=== PATIENT | male | born 1930 | race Caucasian/White ===

== ENCOUNTER 2016-09-19 07:25 | Outpatient (CLI) | payer MEDICARE, BC | END 2016-09-19 07:26 | disposition home or self-care (01) | DX: I12.9 Hypertensive chronic kidney disease with stage 1 through stage 4 chronic kidney disease, or unspecified chronic kidney disease (principal); N18.9 Chronic kidney disease, unspecified; D63.1 Anemia in chronic kidney disease; R73.9 Hyperglycemia, unspecified; I48.91 Unspecified atrial fibrillation; E53.8 Deficiency of other specified B group vitamins ==

== ENCOUNTER 2016-11-01 12:59 | Outpatient (CLI) | payer MEDICARE, BC ==
[2016-11-01 18:29] LABS: BILIRUBIN,TOTAL 0.7 mg/dL (0.2-1.0)
[2016-11-01 18:30] LABS: BILIRUBIN,DIRECT < 0.1 mg/dL (0.1-0.5)
== END 2016-11-01 13:00 | disposition home or self-care (01) ==
LOC: LAB.F 12:59
PROVIDERS: ATTEND Internal Medicine Cardiovascular Disease
DX: I48.0 Paroxysmal atrial fibrillation (principal); Z79.899 Other long term (current) drug therapy
CPT/HCPCS: 36415; 80076; 84443

== ENCOUNTER 2016-11-06 08:33 | Outpatient (CLI) | payer MEDICARE, BC | END 2016-11-06 08:34 | disposition home or self-care (01) | LOC: RT 08:33 | PROVIDERS: ATTEND Internal Medicine Cardiovascular Disease | DX: I48.0 Paroxysmal atrial fibrillation (principal); Z79.899 Other long term (current) drug therapy | CPT/HCPCS: 93005 ==

== ENCOUNTER 2017-04-16 07:38 | Outpatient (CLI) | payer MEDICARE, BC ==
[2017-04-16 18:46] LABS: BASOPHILS % (AUTO) 0.9 %; EOSINOPHILS # (AUTO) 0.2 10^3/uL (0.0-0.7); EOSINOPHILS % (AUTO) 3.3 %; HCT - HEMATOCRIT 42.5 % (42.0-52.0); HGB - HEMOGLOBIN 13.9 g/dL (14.0-18.0); LYMPHOCYTES # (AUTO) 1.4 10^3/uL (1.5-3.5); LYMPHOCYTES % (AUTO) 27.9 %; MEAN CORPUSCULAR HEMOGLOBIN 33.9 pg (27.0-31.0); MEAN CORPUSCULAR HGB CONC 32.8 g/dL (32.0-36.0); MEAN CORPUSCULAR VOLUME 103.4 fL (80.0-94.0); MEAN PLATELET VOLUME 9.6 fL (7.4-11.4); MONOCYTES # (AUTO) 0.4 10^3/uL (0.0-1.0); MONOCYTES % (AUTO) 8.6 %; NEUTROPHILS # (AUTO) 3.1 10^3/uL (1.5-6.6); NEUTROPHILS % (AUTO) 59.3 %; NUCLEATED RED BLOOD CELLS AUTO 0.1 /100WBC; RED CELL DISTRIBUTION WIDTH 13.9 % (12.0-15.0); UNCORRECTED WHITE BLOOD COUNT 5.2 x10^3/uL; WHITE BLOOD COUNT 5.2 x10^3/uL (4.8-10.8)
[2017-04-16 18:47] LABS: ALBUMIN/GLOBULIN RATIO 1.4 (1.0-2.2); BILIRUBIN,TOTAL 0.8 mg/dL (0.2-1.0); CALCIUM 9.2 mg/dL (8.5-10.3); CREATININE 1.6 mg/dL (0.6-1.2); POTASSIUM 4.5 mmol/L (3.5-5.0); TOTAL PROTEIN 6.4 g/dL (6.7-8.2)
[2017-04-16 18:54] LABS: HEMOGLOBIN A1C 0.59 g/dL
== END 2017-04-16 07:39 | disposition home or self-care (01) ==
LOC: LAB.F 07:38
PROVIDERS: ATTEND Family Medicine
DX: I12.9 Hypertensive chronic kidney disease with stage 1 through stage 4 chronic kidney disease, or unspecified chronic kidney disease (principal); N18.9 Chronic kidney disease, unspecified; D63.1 Anemia in chronic kidney disease; R73.9 Hyperglycemia, unspecified; I48.91 Unspecified atrial fibrillation
CPT/HCPCS: 36415; 80053; 83036; 85025

== ENCOUNTER 2017-05-10 07:44 | Outpatient (CLI) | payer MEDICARE, BC ==
[2017-05-10 10:44] LABS: ALBUMIN/GLOBULIN RATIO 1.3 (1.0-2.2); BILIRUBIN,TOTAL 0.6 mg/dL (0.2-1.0); CALCIUM 9.7 mg/dL (8.5-10.3); CREATININE 1.1 mg/dL (0.6-1.2); POTASSIUM 4.9 mmol/L (3.5-5.0); TOTAL PROTEIN 6.5 g/dL (6.7-8.2)
== END 2017-05-10 07:45 | disposition home or self-care (01) ==
LOC: LAB.F 07:44
PROVIDERS: ATTEND Internal Medicine Cardiovascular Disease
DX: I48.0 Paroxysmal atrial fibrillation (principal)
CPT/HCPCS: 36415; 80053; 84443

== ENCOUNTER 2017-05-17 10:53 | Outpatient (CLI) | payer MEDICARE, BC ==
--- NOTE | 2017-05-17 19:27 | XRAY Report ---
DATE OF SERVICE: 05/17/2017 TWO VIEW CHEST: 05/17/2017 CLINICAL INDICATION: Atrial fibrillation. COMPARISON: 01/25/2013 FINDINGS: Frontal and lateral views of the chest demonstrate a mildly enlarged cardiac silhouette. The lungs are clear. No effusion or pneumothorax is present. IMPRESSION: Mild cardiomegaly, but no evidence of acute cardiopulmonary disease. TD: 05/17/2017 18:30
== END 2017-05-17 10:54 | disposition home or self-care (01) ==
LOC: RT 10:53
PROVIDERS: ATTEND Internal Medicine Cardiovascular Disease
DX: I48.91 Unspecified atrial fibrillation (principal); I51.7 Cardiomegaly
CPT/HCPCS: 71020; 93005

== ENCOUNTER 2017-10-22 07:31 | Outpatient (CLI) | payer MEDICARE, BC ==
[2017-10-22 11:31] LABS: BASOPHILS % (AUTO) 0.4 %; EOSINOPHILS # (AUTO) 0.3 10^3/uL (0.0-0.7); EOSINOPHILS % (AUTO) 4.9 %; HGB - HEMOGLOBIN 12.6 g/dL (14.0-18.0); LYMPHOCYTES # (AUTO) 1.2 10^3/uL (1.5-3.5); LYMPHOCYTES % (AUTO) 22.9 %; MEAN CORPUSCULAR HEMOGLOBIN 34.1 pg (27.0-31.0); MEAN CORPUSCULAR HGB CONC 33.4 g/dL (32.0-36.0); MEAN CORPUSCULAR VOLUME 102.2 fL (80.0-94.0); MEAN PLATELET VOLUME 9.6 fL (7.4-11.4); MONOCYTES # (AUTO) 0.5 10^3/uL (0.0-1.0); MONOCYTES % (AUTO) 10.2 %; NEUTROPHILS # (AUTO) 3.2 10^3/uL (1.5-6.6); NEUTROPHILS % (AUTO) 61.6 %; PLT - PLATELET COUNT 127 10^3/uL (130-450); RED BLOOD COUNT 3.69 10^6/uL (4.70-6.10); RED CELL DISTRIBUTION WIDTH 14.8 % (12.0-15.0); WHITE BLOOD COUNT 5.2 x10^3/uL (4.8-10.8)
[2017-10-22 11:44] LABS: ALBUMIN 3.8 g/dL (3.2-5.5); ALBUMIN/GLOBULIN RATIO 1.5 (1.0-2.2); BILIRUBIN,TOTAL 0.8 mg/dL (0.2-1.0); CALCIUM 9.3 mg/dL (8.5-10.3); CREATININE 1.2 mg/dL (0.6-1.2); TOTAL PROTEIN 6.3 g/dL (6.7-8.2)
[2017-10-22 11:46] LABS: HB2 TOTAL 13.5 g/dL; HEMOGLOBIN A1C 0.54 g/dL; HEMOGLOBIN A1C % 5.8 % (4.6-6.2)
== END 2017-10-22 07:32 | disposition home or self-care (01) ==
LOC: LAB.R 07:31
PROVIDERS: ATTEND Family Medicine
DX: F03.90 Unspecified dementia, unspecified severity, without behavioral disturbance, psychotic disturbance, mood disturbance, and anxiety (principal); I12.9 Hypertensive chronic kidney disease with stage 1 through stage 4 chronic kidney disease, or unspecified chronic kidney disease; N18.9 Chronic kidney disease, unspecified; D63.1 Anemia in chronic kidney disease; R73.9 Hyperglycemia, unspecified; E53.8 Deficiency of other specified B group vitamins
CPT/HCPCS: 36415; 80053; 83036; 85025

== ENCOUNTER 2017-11-16 07:27 | Outpatient (CLI) | payer MEDICARE, BC ==
[2017-11-16 12:57] LABS: ALBUMIN 3.6 g/dL (3.2-5.5); BILIRUBIN,DIRECT 0.2 mg/dL (0.1-0.5); TOTAL PROTEIN 6.3 g/dL (6.7-8.2)
== END 2017-11-16 07:28 | disposition home or self-care (01) ==
LOC: LAB.F 07:27
PROVIDERS: ATTEND Internal Medicine Cardiovascular Disease
DX: Z79.899 Other long term (current) drug therapy (principal)
CPT/HCPCS: 36415; 80076; 84443

== ENCOUNTER 2017-12-07 11:49 | Outpatient (CLI) | payer MEDICARE, BC | END 2017-12-07 11:50 | disposition home or self-care (01) | LOC: RT 11:49 | PROVIDERS: ATTEND Family Medicine | DX: Z79.899 Other long term (current) drug therapy (principal) | CPT/HCPCS: 93005 ==

== ENCOUNTER 2018-04-24 07:19 | Outpatient (CLI) | payer MEDICARE, BC ==
[2018-04-24 13:20] LABS: ALBUMIN 3.8 g/dL (3.2-5.5); ALBUMIN/GLOBULIN RATIO 1.5 (1.0-2.2); ALKALINE PHOSPHATASE 89 IU/L (42-121); ALT ALANINE AMINOTRANSFERASE 16 IU/L (10-60); AST ASPARTATE AMINOTRANSFERASE 22 IU/L (10-42); BILIRUBIN,TOTAL 0.8 mg/dL (0.2-1.0); BILIRUBIN,URINE NEGATIVE (NEGATIVE); BUN - BLOOD UREA NITROGEN 42 mg/dL (6-20); CALCIUM 9.2 mg/dL (8.5-10.3); CARBON DIOXIDE - CO2 24 mmol/L (21-32); CHLORIDE 109 mmol/L (101-111); CHOL/HDL RATIO 2.3 (<5.0); CHOLESTEROL 163 mg/dL; CREATININE 1.1 mg/dL (0.6-1.2); GFR - MDRD 63 (>89); GLUCOSE 90 mg/dL (70-100); GLUCOSE, URINE (UA) NEGATIVE (NEGATIVE); HDL CHOLESTEROL 72 mg/dL; KETONES,URINE (UA) NEGATIVE (NEGATIVE); LEUKOCYTE ESTERASE, URINE NEGATIVE (NEGATIVE); NITRITE,URINE NEGATIVE (NEGATIVE); OCCULT BLOOD,URINE NEGATIVE (NEGATIVE); PROTEIN,URINE NEGATIVE (NEGATIVE); SODIUM 138 mmol/L (135-145); TOTAL PROTEIN 6.3 g/dL (6.7-8.2); UROBILINOGEN,URINE 0.2 (NORMAL) E.U./dL (NORMAL)
[2018-04-24 13:37] LABS: BACTERIA,URINE None Seen /HPF (None Seen); CLARITY,URINE CLEAR (CLEAR); RBC,URINE None Seen /HPF (0-5); SQUAMOUS EPITHELIAL CELL,UR NONE SEEN (<= Few)
[2018-04-24 13:39] LABS: LDL CHOLESTEROL,DIRECT 83 mg/dL; LDLD/HDL RATIO 1.2 (<3.6)
== END 2018-04-24 07:20 | disposition home or self-care (01) ==
LOC: LAB.F 07:19
PROVIDERS: ATTEND Family Medicine
DX: I48.0 Paroxysmal atrial fibrillation (principal); N18.3 Chronic kidney disease, stage 3 (moderate); I12.9 Hypertensive chronic kidney disease with stage 1 through stage 4 chronic kidney disease, or unspecified chronic kidney disease
CPT/HCPCS: 36415; 80053; 80061; 81001; 83721; 87086

== ENCOUNTER 2018-04-30 16:08 | Outpatient (CLI) | payer MEDICARE, BC | END 2018-04-30 16:09 | disposition critical access hospital (66) | LOC: EMS 16:08 | PROVIDERS: ATTEND Surgery | DX: R55 Syncope and collapse (principal); S09.90XA Unspecified injury of head, initial encounter; M25.512 Pain in left shoulder; W18.39XA Other fall on same level, initial encounter; Y92.008 Other place in unspecified non-institutional (private) residence as the place of occurrence of the external cause | CPT/HCPCS: A0425; A0429 ==

== ENCOUNTER 2018-04-30 16:47 | Emergency (ER) | payer MEDICARE, BC ==
--- NOTE | 2018-04-30 18:21 | ED Physician Documentation ---
PD HPI SYNCOPE - Stated complaint Stated Complaint: GLF - Chief complaint Chief Complaint: Trauma Hd/Nk - History obtained from History obtained from: Patient, Family - History of Present Illness Witnessed: Unwitnessed Timing - onset: Today Duration: Seconds Preceding symptoms: Light headed (with dizziness). No: Headache Associated symptoms: No: Headache, Chest pain, Palpitations, Diaphoresis Contributing factors: Just stood up. No: Decreased PO intake Injury occurred: Fell, Head injury (struck left upper parietal head ith small laceration. No LOC nor confusion.). No: Neck injury Similar symptoms before: No diagnosis (just positional vertigo - has seen cardiology and neurology with Dx B[facility]) Review of Systems Constitutional: denies: Fever Ears: denies: Ear pain Nose: denies: Rhinorrhea / runny nose, Congestion Throat: denies: Sore throat, Swollen tonsils Cardiac: denies: Chest pain / pressure, Palpitations Respiratory: reports: Dyspnea, Wheezing. denies: Cough GI: denies: Abdominal Pain, Vomiting Neurologic: denies: Difficulty speaking, Unresponsive, Headache, Head injury PD PAST MEDICAL HISTORY - Past Medical History Cardiovascular: Hypertension, Atrial fibrillation Respiratory: Other Neuro: CVA, TIA Endocrine/Autoimmune: None GI: None : Benign prostate hypertrophy, Frequency HEENT: None Psych: None Musculoskeletal: Osteoarthritis, Chronic back pain, Other Derm: None - Past Surgical History Past Surgical History: Yes General: Appendectomy, Colonoscopy Ortho: Knee replacement HEENT: Tonsil/Adenoidectomy - Present Medications Home Medications: Ambulatory Orders Medication Instructions Recorded Confirmed Aspirin [Aspir 81] 81 mg PO DAILY 12/04/12 12/10/14 Cyanocobalamin (Vitamin B-12) 1,000 mcg PO DAILY 01/25/13 12/14/14 [B-12] Amiodarone HCl 200 mg PO DAILY 12/10/14 12/14/14 Naproxen 375 mg PO BID #20 tablet 04/30/18 - Allergies Allergies/Adverse Reactions: Allergies Allergy/AdvReac Type Severity Reaction Status Date / Time No Known Drug Allergies Allergy Verified 04/30/18 17:37 - Social History Does the pt smoke?: No Smoking Status: Never smoker Does the pt drink ETOH?: Yes Does the pt have substance abuse?: No - Immunizations Immunizations are current?: Yes - POLST Patient has POLST: No PD ED PE NORMAL - Vitals Vital signs reviewed: Yes - General General: Alert and oriented X 3, No acute distress, Well developed/nourished - HEENT HEENT: Pharynx benign. No: Moist mucous membranes - Neck Neck: Supple, no meningeal sign, No adenopathy, Thyroid normal - Cardiac Cardiac: RRR, No murmur - Respiratory Respiratory: Clear bilaterally - Derm Derm: Normal color, Warm and dry - Extremities Extremities: No deformity, No tenderness to palpate, No edema, No calf tenderness / cord Results - Vitals Vitals: Oxygen O2 Source [With Activity] Room air O2 Source [Without Activity] Room air O2 Source Room air - Labs Labs: Laboratory Tests 04/30/18 19:03 POC Whole Bld Glucose 102 H PD MEDICAL DECISION MAKING - ED course Complexity details: reviewed results, considered differential, d/w patient Departure - Departure Disposition: 01 Home, Self Care Clinical Impression: Scalp laceration Qualifiers: Encounter type: initial encounter Qualified Code(s): S01.01XA - Laceration without foreign body of scalp, initial encounter Episode of syncope Qualifiers: Syncope type: vasovagal syncope Qualified Code(s): R55 - Syncope and collapse Shoulder pain, acute Qualifiers: Laterality: left Qualified Code(s): M25.512 - Pain in left shoulder Condition: Stable Record reviewed to determine appropriate education?: Yes Instructions: ED Laceration Scalp Stitch Or Stap Follow-Up: FLORENTINO MA MD [Primary Care Provider] - [facility] [Provider Group] Prescriptions: Naproxen 375 mg PO BID #20 tablet Comments: It is okay to wash and shower. Clean off the wound twice a day with soap and water, or peroxide and water. Apply some antibiotic ointment to it to keep it moist. Also to watch for signs of infection such as purulence, redness or increasing pain. Return to your primary care or the ER at the specified time for suture removal. Staple removal 8-10 days. For the shoulder he can use some naproxen twice daily with food. Add Tylenol if needed for pain. Use the sling to reduce movement of the shoulder to help with comfort. Have gentle range of motion of the shoulders of times a day for a few minutes at a time at least. Follow-up with your primary care or orthopedics regarding the shoulder. Discharge Date/Time: 04/30/18 20:58
[2018-04-30] MEDS: ACETAMINOPHEN 325 MG TABLET PO STA (19:32)
[2018-04-30] MEDS: NAPROXEN 250 MG TABLET PO STA (19:38)
--- NOTE | 2018-04-30 20:34 | XRAY Report ---
Reason: increased shoulder pain; fall today Procedure Date: 04/30/2018 Accession Number: [id number] / [id number] Procedure: XR - Shoulder 3 View LT CPT Code: FULL RESULT: EXAM: LEFT SHOULDER RADIOGRAPHY EXAM DATE: 04/30/2018 08:22 PM. CLINICAL HISTORY: Increased shoulder pain. Fall today. COMPARISON: SHOULDER 2 VIEW LT 12/04/2012 8:16 PM. TECHNIQUE: 4 views. FINDINGS: Bones: Normal. No fracture or bone lesion. Joints: Worsening degenerative changes of the acromioclavicular joint with widening. High riding humeral head compatible with chronic rotator cuff tear with contact with the undersurface of the acromion. No dislocation. Soft tissues: The visualized hemithorax is unremarkable. No soft tissue calcification. IMPRESSION: 1. Worsening degenerative changes of the acromioclavicular joint. 2. Signs of chronic rotator cuff tear. RADIA
[2018-04-30 20:42] VITALS: BP 138/79
--- NOTE | 2018-04-30 20:46 | CT Report ---
Reason: fall and struck head Procedure Date: 04/30/2018 Accession Number: [id number] / [id number] Procedure: CT - Head W/O CPT Code: FULL RESULT: EXAM: CT HEAD EXAM DATE: 04/30/2018 08:13 PM. CLINICAL HISTORY: Fall and struck head. COMPARISON: HEAD W/O 01/25/2013 4:26 PM. TECHNIQUE: Multiaxial CT images were obtained from the foramen magnum to the vertex. Reformats: Sagittal and coronal. IV contrast: None. In accordance with CT protocol optimization, one or more of the following dose reduction techniques were utilized for this exam: automated exposure control, adjustment of mA and/or KV based on patient size, or use of iterative reconstructive technique. FINDINGS: Parenchyma: No acute intraparenchymal hemorrhage. No evidence of mass or midline shift. Cline-white differentiation is distinct. Generalized cerebral volume loss. Nonspecific hypodense changes to the periventricular white matter, which can be seen with chronic small vessel ischemic disease. Extraaxial Spaces: No subdural or epidural collections identified. Ventricles: Ex vacuo dilation of the ventricles. Sinuses and Orbits: Imaged paranasal sinuses, orbits, and mastoids show no significant abnormality. Bones: No evidence of fracture or calvarial defect. Other: None. IMPRESSION: No acute intracranial findings. An acute infarct may not be visible by CT. Follow-up examinations recommended as clinically indicated. RADIA
== END 2018-04-30 20:58 | disposition home or self-care (01) ==
LOC: ED 16:47
DX: I10 Essential (primary) hypertension (principal); Z86.73 Personal history of transient ischemic attack (TIA), and cerebral infarction without residual deficits; Z86.79 Personal history of other diseases of the circulatory system; R55 Syncope and collapse; S01.01XA Laceration without foreign body of scalp, initial encounter; M25.512 Pain in left shoulder
CPT/HCPCS: 12001; 70450; 73030; 99283; 99284; A9270

== ENCOUNTER 2018-05-07 13:14 | Emergency (ER) | payer MEDICARE, BC ==
[2018-05-07 13:31] VITALS: BP 139/67
--- NOTE | 2018-05-07 13:40 | ED Physician Documentation ---
PD HPI WOUND RECHECK - Stated complaint Stated Complaint: STITCH REMOVAL - Chief complaint Chief Complaint: Wound - Histroy obtained from History obtained from: Patient, Family - History of Present Illness Location: Scalp Recently seen: Emergency Dept (had scalp lac secondary to fall. It is healing okay and here sor staple removal.) Review of Systems Constitutional: denies: Fever, Chills Neurologic: denies: Focal weakness, Numbness, Confused, Altered mental status, Headache PD PAST MEDICAL HISTORY - Past Medical History Past Medical History: Yes Cardiovascular: Hypertension, Atrial fibrillation Respiratory: Other Neuro: CVA, TIA Endocrine/Autoimmune: None GI: None : Benign prostate hypertrophy, Frequency HEENT: None Psych: None Musculoskeletal: Osteoarthritis, Chronic back pain, Other Derm: None - Past Surgical History Past Surgical History: Yes General: Appendectomy, Colonoscopy Ortho: Knee replacement HEENT: Tonsil/Adenoidectomy - Present Medications Home Medications: Ambulatory Orders Medication Instructions Recorded Confirmed Aspirin [Aspir 81] 81 mg PO DAILY 12/04/12 12/10/14 Cyanocobalamin (Vitamin B-12) 1,000 mcg PO DAILY 01/25/13 12/14/14 [B-12] Amiodarone HCl 200 mg PO DAILY 12/10/14 12/14/14 Naproxen 375 mg PO BID #20 tablet 04/30/18 - Allergies Allergies/Adverse Reactions: Allergies Allergy/AdvReac Type Severity Reaction Status Date / Time No Known Drug Allergies Allergy Verified 05/07/18 13:38 - Social History Does the pt smoke?: No Smoking Status: Never smoker Does the pt drink ETOH?: Yes Does the pt have substance abuse?: No - Immunizations Immunizations are current?: Yes - POLST Patient has POLST: No PD ED PE NORMAL - Vitals Vital signs reviewed: Yes - General General: Alert and oriented X 3, No acute distress, Well developed/nourished - HEENT HEENT: Other (upper occipital area with healing stapled wound, without signs of infections. ) Results - Vitals Vitals: Oxygen O2 Source [With Activity] Room air O2 Source [Without Activity] Room air O2 Source Room air Departure - Departure Disposition: 01 Home, Self Care Clinical Impression: Encounter for staple removal Condition: Stable Record reviewed to determine appropriate education?: Yes Follow-Up: FLORENTINO MA MD [Primary Care Provider] - Comments: Your wound appears well-healing. Continue wound care with cleansing soap and water and some ointment once or twice daily until looks fully healed. Discharge Date/Time: 05/07/18 13:40
== END 2018-05-07 13:40 | disposition home or self-care (01) ==
LOC: ED 13:14
DX: Z48.02 Encounter for removal of sutures (principal); I10 Essential (primary) hypertension; Z86.79 Personal history of other diseases of the circulatory system; Z86.73 Personal history of transient ischemic attack (TIA), and cerebral infarction without residual deficits
CPT/HCPCS: 99281; 99282

== ENCOUNTER 2018-07-04 11:09 | Outpatient (CLI) | payer MEDICARE, BC ==
[2018-07-04 11:39] LABS: ALBUMIN 3.7 g/dL (3.2-5.5); BILIRUBIN,DIRECT 0.2 mg/dL (0.1-0.5); TOTAL PROTEIN 6.5 g/dL (6.7-8.2)
== END 2018-07-04 11:10 | disposition home or self-care (01) ==
LOC: LAB 11:09
PROVIDERS: ATTEND Internal Medicine Cardiovascular Disease
DX: Z79.899 Other long term (current) drug therapy (principal)
CPT/HCPCS: 36415; 80076; 84443; 93005

== ENCOUNTER 2018-08-01 13:42 | Outpatient (CLI) | payer MEDICARE, BC | END 2018-08-01 13:43 | disposition EMS.NT | LOC: EMS 13:42 | PROVIDERS: ATTEND Surgery | DX: M25.531 Pain in right wrist (principal); W18.30XA Fall on same level, unspecified, initial encounter; Y92.009 Unspecified place in unspecified non-institutional (private) residence as the place of occurrence of the external cause ==

== ENCOUNTER 2018-08-01 14:50 | Emergency (ER) | payer MEDICARE, BC ==
--- NOTE | 2018-08-01 15:32 | XRAY Report ---
Reason: GLF Procedure Date: 08/01/2018 Accession Number: [id number] / [id number] Procedure: XR - Wrist 3 View RT CPT Code: FULL RESULT: EXAM: RIGHT WRIST RADIOGRAPHY EXAM DATE: 08/01/2018 03:07 PM. CLINICAL HISTORY: Ground level fall. COMPARISON: None. TECHNIQUE: 3 views. FINDINGS: Bones: There is an impacted, oblique transverse fracture of the distal radius with dorsal impaction and mild apex anterior angulation. There is dorsal tilt to the radial articular surface and mild anterior and posterior comminution. There is a mildly displaced fracture through the base of the ulnar styloid. Scaphoid appears intact. No additional fractures noted. Joints: No dislocation or subluxation. Soft Tissues: Moderate circumferential soft tissue swelling greatest surrounding the radial fracture. IMPRESSION: 1. Fracture of the distal radius, with collections agent fracture at the base of the ulnar styloid. 2. Moderate circumferential soft tissue swelling greatest adjacent to the radial fracture. 3. Scaphoid bone appears intact. RADIA
[2018-08-01] MEDS ORDERED: SODIUM CHLORIDE 0.9% 500 ML IV ONE (17:10)
--- NOTE | 2018-08-01 17:14 | ED Physician Documentation ---
PD HPI UPPER EXT INJURY - Stated complaint Stated Complaint: R WRIST INJ - Chief complaint Chief Complaint: Trauma Ext - History obtained from History obtained from: Patient, Family - History of Present Illness Location: Right, Wrist Type of injury: Fall Where injury occurred: Home Timing - onset: How many hours ago (2) Timing - duration: Hours (2) Timing - details: Abrupt onset Pain level max: 6 Pain level now: 5 Improved by: Rest, Ice, Immobilization Worsened by: Moving, Palpating Associated symptoms: Swelling. No: Weakness, Numbness, Tingling Contributing factors: No: Anticoagulated Recently seen: Not recently seen - Additonal information Additional information: Patient tripped and fell landed on the right wrist. Patient is right-handed Review of Systems Constitutional: denies: Fever, Chills Throat: denies: Sore throat Skin: denies: Rash Musculoskeletal: denies: Neck pain, Back pain Neurologic: denies: Focal weakness, Headache, Head injury PD PAST MEDICAL HISTORY - Past Medical History Cardiovascular: Hypertension, Atrial fibrillation Respiratory: Other Neuro: CVA, TIA Endocrine/Autoimmune: None GI: None : Benign prostate hypertrophy, Frequency HEENT: None Psych: None Musculoskeletal: Osteoarthritis, Chronic back pain, Other Derm: None - Past Surgical History Past Surgical History: Yes General: Appendectomy, Colonoscopy Ortho: Knee replacement HEENT: Tonsil/Adenoidectomy - Present Medications Home Medications: Ambulatory Orders Medication Instructions Recorded Confirmed Aspirin [Aspir 81] 81 mg PO DAILY 12/04/12 12/10/14 Cyanocobalamin (Vitamin B-12) 1,000 mcg PO DAILY 01/25/13 12/14/14 [B-12] Amiodarone HCl 200 mg PO DAILY 12/10/14 12/14/14 Naproxen 375 mg PO BID #20 tablet 04/30/18 - Allergies Allergies/Adverse Reactions: Allergies Allergy/AdvReac Type Severity Reaction Status Date / Time No Known Drug Allergies Allergy Verified 08/01/18 16:28 - Social History Does the pt smoke?: No Smoking Status: Never smoker Does the pt drink ETOH?: Yes Does the pt have substance abuse?: No - Immunizations Immunizations are current?: Yes - POLST Patient has POLST: No PD ED PE NORMAL - Vitals Vital signs reviewed: Yes - General General: Alert and oriented X 3, No acute distress, Well developed/nourished - HEENT HEENT: Moist mucous membranes - Neck Neck: Supple, no meningeal sign - Cardiac Cardiac: RRR, Strong equal pulses - Respiratory Respiratory: No respiratory distress, Clear bilaterally - Derm Derm: Warm and dry - Extremities Extremities: Other (Tenderness and swelling to the distal right wrist. Neurovascularly intact.) - Neuro Neuro: Alert and oriented X 3 - Psych Psych: Normal mood, Normal affect Results - Vitals Vitals: Oxygen O2 Source [] Room air O2 Source [] Room air O2 Source Room air Oxygen Flow Rate 2 - EKG (time done) 1706 Rate: Rate (enter#) (61) Rhythm: NSR [place]: Anterior hemiblock (LAFB) Intervals: Prolonged [place] QRS: Normal Ischemia: Normal ST segments - Labs Labs: Laboratory Tests 08/01/18 08/01/18 17:17 17:17 WBC 5.6 RBC 3.92 L Hgb 13.0 L Hct 39.8 L MCV 101.5 H MCH 33.2 H MCHC 32.8 RDW 14.0 Plt Count 144 MPV 8.8 Neut # (Auto) 4.2 Lymph # (Auto) 0.9 L [place] # (Auto) 0.4 Eos # (Auto) 0.0 Baso # (Auto) 0.0 Absolute Nucleated RBC 0.00 Nucleated RBC % 0.0 Sodium 136 Potassium 4.8 Chloride 105 Carbon Dioxide 23 Anion Gap 8.0 BUN 47 H Creatinine 1.4 H Estimated GFR (MDRD) 48 L Glucose 120 H Calcium 9.4 - Rads (name of study) Right wrist x-ray Radiology: Prelim report reviewed, EMP read contemporaneously, See rad report (Fracture of the distal radius with director of admissions fracture at the base of the ulnar styloid. Moderate circumferential soft tissue swelling greatest adjacent to the fracture. Scaphoid bone appears intact) Procedures - Splint (location) Right wrist Splint applied by: Physician, Tech Type of splint: Fiberglass, Short arm, Volar cock up Other: Patient tolerated well, No complications, Neurovascular intact, Sling provided PD MEDICAL DECISION MAKING - ED course Complexity details: reviewed results, re-evaluated patient, considered differential, d/w patient, d/w family ED course: 87-year-old male presents to the emergency department after a fall, has a right distal radius fracture. As the splint was being applied, he had an episode of vasovagal syncope. No cardiac arrhythmia on the monitor. Did have transient hypotension that resolved. No acute laboratory abnormalities. We will have him follow-up with orthopedics for further care. They deny any pain medications for home. He has passed out in the past several times according to his . Patient and family counseled regarding signs and symptoms for which I believe and urgent re-evaluation would be necessary. Patient with good understanding of and agreement to plan and is comfortable going home at this time This document was made in part using voice recognition software. While efforts are made to proofread this document, sound alike and grammatical errors may occur. Departure - Departure Disposition: 01 Home, Self Care Clinical Impression: Right wrist fracture Qualifiers: Encounter type: initial encounter Fracture type: closed Qualified Code(s): S62.101A - Fracture of unspecified carpal bone, right wrist, initial encounter for closed fracture Condition: Good Instructions: ED Fx Wrist General Follow-Up: FLORENTINO MA MD [Primary Care Provider] - [facility] [Provider Group] - Within 1 week Comments: Follow-up with orthopedics next week. Return if you worsen. Keep the splint on until released by orthopedics. If this is not healing well, you may need surgery. Discharge Date/Time: 08/01/18 18:30
[2018-08-01 17:28] LABS: BASOPHILS % (AUTO) 0.6 %; EOSINOPHILS % (AUTO) 0.4 %; LYMPHOCYTES # (AUTO) 0.9 10^3/uL (1.5-3.5); LYMPHOCYTES % (AUTO) 16.6 %; MEAN CORPUSCULAR HEMOGLOBIN 33.2 pg (27.0-31.0); MEAN CORPUSCULAR HGB CONC 32.8 g/dL (32.0-36.0); MEAN CORPUSCULAR VOLUME 101.5 fL (80.0-94.0); MEAN PLATELET VOLUME 8.8 fL (7.4-11.4); MONOCYTES # (AUTO) 0.4 10^3/uL (0.0-1.0); MONOCYTES % (AUTO) 6.4 %; NEUTROPHILS # (AUTO) 4.2 10^3/uL (1.5-6.6); PLT - PLATELET COUNT 144 10^3/uL (130-450); RED BLOOD COUNT 3.92 10^6/uL (4.70-6.10); WHITE BLOOD COUNT 5.6 x10^3/uL (4.8-10.8)
[2018-08-01 17:30] LABS: CALCIUM 9.4 mg/dL (8.5-10.3); CREATININE 1.4 mg/dL (0.6-1.2)
[2018-08-01] MEDS ORDERED: ACETAMINOPHEN 325 MG TABLET PO STA (17:34)
[2018-08-01 19:36] VITALS: BP 140/88
== END 2018-08-01 18:30 | disposition home or self-care (01) ==
LOC: ED 14:50
DX: S62.101A Fracture of unspecified carpal bone, right wrist, initial encounter for closed fracture (principal); W01.0XXA Fall on same level from slipping, tripping and stumbling without subsequent striking against object, initial encounter; Y92.009 Unspecified place in unspecified non-institutional (private) residence as the place of occurrence of the external cause; I10 Essential (primary) hypertension; I44.4 Left anterior fascicular block; I44.0 Atrioventricular block, first degree; Z79.82 Long term (current) use of aspirin
CPT/HCPCS: 29125; 36415; 73110; 80048; 85025; 93005; 96360; 99282; 99284; A9270

== ENCOUNTER 2018-08-14 08:35 | Day surgery (SDC) | payer MEDICARE, BC ==
[2018-08-14] MEDS ORDERED: ceFAZolin 2 GM/50 ML 2 GM/50 ML BAG IV ONE (08:47)
[2018-08-14] MEDS ORDERED: BUPIVACAINE 0.25% PF 10 ML VIAL ONE (09:08)
[2018-08-14] MEDS ORDERED: LACTATED RINGERS 1,000 ML IV ONE ×2 (09:16→10:19)
--- NOTE | 2018-08-14 09:19 | ANESTHESIA ---
Pre-Anesthesia VS, & Labs - Diagnosis Right distal radius fracture, ulnar styloid fracture - Procedure right distal radius ORIF, possible brachioradialis tenotomy Vital Signs: Temp Pulse Resp BP Pulse Ox 36.9 C 69 20 174/90 H 97 08/14/18 08:49 08/14/18 08:49 08/14/18 08:49 08/14/18 08:49 08/14/18 08:49 Height 5 ft 9 in Weight (kg) 85.6 kg Body Mass Index 27.5 - NPO >8 hours - Lab Results Lab results reviewed: Yes Home Medications and Allergies Aspirin [Aspir 81] 81 mg PO DAILY 12/04/12 Cyanocobalamin (Vitamin B-12) [B-12] 1,000 mcg PO DAILY 01/25/13 Amiodarone HCl 200 mg PO DAILY 12/10/14 Amiodarone daily Allergies/Adverse Reactions: Allergies Allergy/AdvReac Type Severity Reaction Status Date / Time No Known Drug Allergies Allergy Verified 08/14/18 09:20 Anes History & Medical History - Anesthetic History Anesthesia Complications: reports: No previous complications - Medical History Cardiovascular: reports: Atrial fibrillation (History of afib, currently SR) Pulmonary: reports: Other (snores) Gastrointestinal: reports: None Urinary: reports: Benign prostate hypertrophy, Frequency Neuro: reports: TIA, Fainting, Other (early dementia) Musculoskeletal: reports: Osteoarthritis, Chronic back pain, Other Endocrine/Autoimmune: reports: None Blood Disorders: reports: None Skin: reports: None Smoking Status: Former smoker (Quit 40 years ago) Psychosocial: reports: No issues indicated - Surgical History General: Appendectomy, Colonoscopy Eyes Ears Nose Throat (EENT): Tonsil/Adenoidectomy Orthopedic: Knee replacement Results - EKG Results EKG Comparison: Reviewed EKG - Echo Results Echo Results: Other (no report available. reports patient had ECHO at [facility] and was normal.) Exam General: Alert, Oriented x3, Cooperative, No acute distress Dental: Dentures full Upper, Poor dentition (lower) Respiratory: Lungs clear, Normal breath sounds, No respiratory distress, No accessory muscle use Cardiovascular: Regular rate, Normal S1, Normal S2, Other (slight systolic murmur) Mental/Cognitive Status: Alert/Oriented X3, Normal for patient Plan Anesthesia Type: General Consent for Procedure(s) Verified and Reviewed: Yes Code Status: Attempt Resuscitation ASA classification: 2-Mild systemic disease Is this case an emergency?: No
[2018-08-14] MEDS ORDERED: BUPIVACAINE 0.25% PF 30 ML VIAL SUBQ ONE ×2 (10:19→11:30)
[2018-08-14] MEDS ORDERED: ONDANSETRON 4 MG/2 ML VIAL IVP ONE (11:52)
[2018-08-14] MEDS ORDERED: fentaNYL 250 MCG/5 ML VIAL IVP ONE (11:52)
[2018-08-14] MEDS ORDERED: PROPOFOL 200 MG/20 ML VIAL IVP ONE (11:52)
[2018-08-14] MEDS ORDERED: ACETAMINOPHEN 1,000 MG/100 ML 100 ML IV ONE (11:52)
[2018-08-14] MEDS ORDERED: ePHEDrine 50 MG/ML VIAL IVP ONE (11:52)
[2018-08-14] MEDS ORDERED: DEXAMETHASONE 4 MG/ML VIAL IVP ONE (11:52)
[2018-08-14] MEDS ORDERED: LIDOCAINE-MPF 2% 5 ML VIAL IM ONE (11:52)
[2018-08-14] MEDS ORDERED: oxyCODONE 5 MG TABLET PO PRN (12:03)
[2018-08-14] MEDS ORDERED: ONDANSETRON 4 MG/2 ML VIAL IVP PRN (12:03)
--- NOTE | 2018-08-14 12:03 | IMMEDIATE POSTOPERATIVE NOTE ---
Immediate Postoperative Note - Procedure Note Procedure Date: 08/14/18 Pre-Op Diagnosis: RIGHT DISTAL RADIUS FRACTURE, ULNAR STYLOID FRACTURE Procedure: RIGHT DISTAL RADIUS ORIF, BR TENOTOMY Post-Op Diagnosis: SAME Primary Surgeon: CHRIS Anesthesia Type: General LMA, Local Complications: No complications Estimated Blood Loss (in cc): 25 Plan of Care: PT TOLERATED PROCEDURE WELL. INSTRUMENT AND SPONGE COUNTS CORRECT. PT TRANSFERRED TO IN STABLE CONDITION. STD DISTAL RAD ORIF PROTOCOL
[2018-08-14 13:45] VITALS: BP 140/73
--- NOTE | 2018-08-15 13:37 | OPERATIVE REPORT ---
DATE OF SERVICE: 08/14/2018 Physician: Farhan Doss MD SURGEON: Farhan Doss MD ANESTHESIA PROVIDER: ___ Vicky Wharton CRNA ANESTHESIA TYPE: General anesthesia with 30 mL of 0.25% plain Marcaine local. ESTIMATED BLOOD LOSS: Less than 25 mL. FLUIDS: 600 mL of lactated Ringer's. TOURNIQUET TIME: 93 minutes at 250 mmHg. COMPRESSION DEVICE: Bilateral calf SCD boots. ORTHOPEDIC IMPLANTS: DVR Crosslock 5-hole plate with associated locking and nonlocking screws PREOPERATIVE DIAGNOSES 1. Right distal radius fracture. 2. Ulnar styloid fracture. POSTOPERATIVE DIAGNOSES 1. Right distal radius fracture. 2. Ulnar styloid fracture. PROCEDURES 1. Right distal radius open reduction internal fixation. 2. Right distal radius brachioradialis tenotomy. 3. Right wrist 4 views mini C-arm fluoroscopic image interpretation. HISTORY OF PRESENT ILLNESS AND INDICATIONS: Patient is an 87-year-old active gentleman who sustained a displaced right distal radius fracture. He was indicated for operative treatment. Patient had appropriate preanesthetic risk stratification and optimization and was indicated for aforementioned procedure. Informed consent was given after risks, benefits, and alternatives reviewed with the patient and the patient's in the preoperative care unit and in the clinic. PROCEDURE: On 08/14/2018, patient is identified in the preoperative care unit. He identifies his right wrist as the operative site; this is signed by the operating surgeon. Patient receives preoperative weight-based IV antibiotics. He is brought to the operating room. General anesthesia is administered. He is placed supine on the operating table with head, neck, and extremities placed in anatomically comfortable and safe position to avoid peripheral nerve stretch or compression. Patient's right upper extremity has a tourniquet placed high on the right arm, taking care to avoid any encumbrance of the axilla. Patient's right wrist and right upper extremity are then pre-scrubbed with Hibiclens solution and then prepped and draped in the usual sterile fashion using chlorhexidine-based prep. At this time, surgical pause identifies the right wrist as the operative site. At this point, Esmarch bandage is used to exsanguinate the limb, and then tourniquet is inflated, and then an incision is made over the flexor carpi radialis tendon, and as it approaches the wrist crease, it is angled to avoid crossing the wrist crease at a right angle. Skin incision is made, spreading dissection is carried out, hemostasis is achieved using electrocautery. FCR tendon sheath is entered, taking care to avoid injury to the tendon. This sheath incision extended proximally and distally. The tendon is brought radially, the posterior aspect of the sheath incised and then spreading dissection is carried out down to the pronator quadratus, which is elevated off of the distal radius but noted to be quite injured and damaged, as such difficult to take off in 1 flap. At this point, the fracture is identified, debrided using small curettes, and copiously irrigated, and then reduction attempts brought the radius with improved length, radial inclination, and volar tilt. Given the difficulty in maintaining this, the plate is initially used to facilitate reduction after putting some distal locking screws in. However, it was found that the plate was still somewhat radial, and as such, this needed to be adjusted. After a second reduction attempt and placement of the distal locking screws, improved reduction restores near-anatomic height, inclination, and volar tilt with appropriate plate position. At this point, distal locking screws are filled. Proximal nonlocking and locking screws are placed just beyond the second cortex to avoid overpenetration and potential dorsal injury. The distal screws are noted to be intraosseous and not involving the joint, whether it be the radiocarpal joint or the DRUJ. It should be noted that prior to placing the locking screws distally, a nonlocking screw is placed to bring the plate to the bone maximally. At this point, fluoroscopic images confirm appropriate fracture reduction and hardware position. The wound is copiously irrigated. The pronator quadratus is tacked over the plate, and then repeat copious irrigation and hemostasis is performed. Then the skin is closed in layered fashion using 0 Vicryl, 2-0 Vicryl, and then interrupted nylon suture. Skin is washed, dried, local anesthetic is infused, Xeroform dressing is applied, dry sterile dressing is applied. Patient is placed in a clamshell plaster splint. Patient tolerated the procedure well. Instrument and sponge counts are correct. Patient is transferred to the recovery room in stable condition. He will follow standard postoperative right distal radius open reduction internal fixation protocol. It should be noted that prior to reduction, the brachioradialis is identified. First dorsal extensor compartment is identified and protected, and the brachioradialis is elevated off of the distal radial styloid. At this point, patient's is contacted in the waiting room; case is discussed with her, fluoroscopic images reviewed, her questions are answered. Postoperative instructions highlighted, postoperative medications highlighted, as they had been discussed preoperatively. She verbalizes understanding and satisfaction with the plan as outlined and will follow up in 10-14 days, or sooner should problems or questions arise. ADDITIONAL PROCEDURE: Four views right wrist mini C-arm fluoroscopic image interpretation. RADIOGRAPHIC INDICATIONS: Evaluation of distal radius fracture reduction and hardware placement. RADIOGRAPHIC FINDINGS: Findings demonstrate near-anatomic reduction of a distal radius transverse fracture and ulnar styloid fracture. Approximately radial neutral height, appropriate radial inclination and volar inclination with metallic plate and screws appear to be extraarticular. There are additional radiolucencies consistent with pins or drills adjacent to the plate. RADIOGRAPHIC IMPRESSION: Distal radius fracture and hardware as above. TD: 08/15/2018 13:11 HENRIK
== END 2018-08-14 08:36 | disposition home or self-care (01) ==
LOC: SDS 08:35
PROVIDERS: ATTEND Orthopaedic Surgery Sports Medicine
PROC: 0PSH04Z Reposition Right Radius with Internal Fixation Device, Open Approach (ICD-10-PCS; principal; 2018-08-14 10:00)
DX: S52.501A Unspecified fracture of the lower end of right radius, initial encounter for closed fracture (principal); S52.611A Displaced fracture of right ulna styloid process, initial encounter for closed fracture; N40.1 Benign prostatic hyperplasia with lower urinary tract symptoms; R35.0 Frequency of micturition; F03.90 Unspecified dementia, unspecified severity, without behavioral disturbance, psychotic disturbance, mood disturbance, and anxiety; M19.90 Unspecified osteoarthritis, unspecified site; M54.9 Dorsalgia, unspecified; G89.29 Other chronic pain; I48.91 Unspecified atrial fibrillation; D64.9 Anemia, unspecified; H91.90 Unspecified hearing loss, unspecified ear; W01.0XXA Fall on same level from slipping, tripping and stumbling without subsequent striking against object, initial encounter; Z91.81 History of falling; Y93.89 Activity, other specified; Z79.82 Long term (current) use of aspirin; Z86.73 Personal history of transient ischemic attack (TIA), and cerebral infarction without residual deficits; Z87.891 Personal history of nicotine dependence; Z96.659 Presence of unspecified artificial knee joint
CPT/HCPCS: 25607; A9270; C1713; J0131; J0690; J3010; J7120

== ENCOUNTER 2018-10-30 10:47 | Outpatient (CLI) | payer MEDICARE, BC ==
--- NOTE | 2018-10-30 14:39 | MRI Report ---
Reason: LOWER EXTREMITY NUMBNESS,WEAKNESS OF RIGHT LOWER E Procedure Date: 10/30/2018 Accession Number: [id number] / [id number] Procedure: MRI - Lumbar Spine W/O CPT Code: FULL RESULT: EXAM: MRI LUMBAR SPINE WITHOUT CONTRAST EXAM DATE: 10/30/2018 11:55 AM. CLINICAL HISTORY: Lower extremity numbness and weakness especially on the right. Lumbar degenerative disk disease and facet arthropathy. Lumbar scoliosis. COMPARISON: LUMBAR SPINE 03/12/2012 12:44 PM. TECHNIQUE: Multiplanar, multisequence T1-weighted and fluid-sensitive sequences of the lumbar spine from T12 to S1 without contrast. Other: None. FINDINGS: Spinal Canal: The conus terminates at L1. Stable unremarkable appearance of the conus medullaris. Alignment: Abnormal alignment is similar to prior. Lumbar levoscoliosis may have progressed, now 33 degrees, previously 26 degrees using the same method of measurement. Again seen are findings of multilevel degenerative subluxations including mild retrolisthesis of L1 on L2 and L2 on L3 and mild to moderate anterolisthesis of L4 on L5 and L5 on S1. Bone Marrow: Five [id number] lumbar vertebral bodies are assumed. No acute compression fracture. Similar findings of degenerative endplate signal changes, most notable on the right at L3-L4. Disk Levels/Facets: T12-L1: Prominent disk degeneration and facet arthropathy, left greater than right, at least mildly progressive but now moderate to severe likely progressive left foraminal stenosis. Mild to moderate left lateral recess stenosis. Patent central canal and right foramen. L1-L2: Stable prominent chronic disk degeneration and facet arthropathy. Circumferential bulge, marginal spurring and ligamentum flavum thickening are present. Stable appearing stenosis of the central canal, lateral recesses and neural foramina. Central stenosis is mild to moderate. Lateral recess stenosis is moderate and foraminal stenosis is moderate to severe. L2-L3: Stable appearing prominent chronic disk degeneration and facet arthropathy. Circumferential disk bulge. Facet arthropathy with ligamentum flavum thickening. Mild central stenosis. Moderate right lateral recess stenosis. Moderate to marked bilateral degenerative foraminal stenosis. L3-L4: Again seen are findings of asymmetric moderate to severe disk degeneration and facet arthropathy, most profound to the right of midline. Broad-based bulge with marginal spurring is present, more conspicuous to the right of midline. Stenosis appears stable. Left foraminal stenosis is moderate. Central stenosis is mild. Right lateral recess stenosis is moderate to severe right foraminal stenosis is severe with potential for right L3 nerve root compression. L4-L5: Stable appearing advanced disk degeneration and facet arthropathy with subluxation. Prominent circumferential bulge. No significant central stenosis. Stable moderate bilateral lateral recess stenosis. Stable foraminal stenosis also, at least moderate on the left and moderate to severe on the right. L5-S1: Stable advanced degenerative changes. Stable broad-based bulge and more focal midline posterior protrusion. As before, degenerative stenosis is most prominent at the level of the left foramen which is severely stenotic. Musculature: Mild to moderate diffuse fatty atrophy. Other: None. IMPRESSION: 1. More prominent lumbar levoscoliosis, now about 33 degrees, previously 26 degrees. 2. Progressive now moderate to severe degenerative foraminal stenosis on the left at T12-L1. 3. Diffuse advanced degenerative changes with potentially significant multilevel multizone lumbar stenosis otherwise appears grossly stable from prior. Comment: The following findings are so common in adults without low back pain that while we report their presence, they must be interpreted with caution and in the context of the clinical situation. (Reference Shabnamk et al, Spine 2001) Prevalence of findings in patients without low back pain: Disk degeneration (any evidence): 92% Disk desiccation/T2 signal loss: 83% Disk height loss: 56% Disk bulge: 64% Disk protrusion: 32% Annular tear/high intensity zone: 38% RADIA
== END 2018-10-30 10:48 | disposition home or self-care (01) ==
LOC: DI 10:47
PROVIDERS: ATTEND Physical Medicine & Rehabilitation
DX: M51.36 Other intervertebral disc degeneration, lumbar region (principal); M48.061 Spinal stenosis, lumbar region without neurogenic claudication; M47.816 Spondylosis without myelopathy or radiculopathy, lumbar region; M43.16 Spondylolisthesis, lumbar region; M51.35 Other intervertebral disc degeneration, thoracolumbar region; M48.05 Spinal stenosis, thoracolumbar region; M51.37 Other intervertebral disc degeneration, lumbosacral region; M48.07 Spinal stenosis, lumbosacral region; M41.86 Other forms of scoliosis, lumbar region
CPT/HCPCS: 72148

== ENCOUNTER 2019-02-13 11:15 | Outpatient (CLI) | payer MEDICARE, BC ==
[2019-02-13 11:49] LABS: CALCIUM 9.6 mg/dL (8.5-10.3)
[2019-02-13 16:05] LABS: ALBUMIN 3.9 g/dL (3.2-5.5); ALBUMIN/GLOBULIN RATIO 1.3 (1.0-2.2); BILIRUBIN,TOTAL 0.7 mg/dL (0.2-1.0); CREATININE 1.5 mg/dL (0.6-1.2); TOTAL PROTEIN 6.9 g/dL (6.7-8.2)
== END 2019-02-13 11:16 | disposition home or self-care (01) ==
LOC: LAB 11:15
PROVIDERS: ATTEND Internal Medicine Cardiovascular Disease
DX: I48.91 Unspecified atrial fibrillation (principal)
CPT/HCPCS: 36415; 80053; 84443

== ENCOUNTER 2019-11-05 14:49 | Outpatient (CLI) | payer MEDICARE, BC ==
--- NOTE | 2019-11-05 15:53 | XRAY Report ---
PROCEDURE: Knee 4 View LT INDICATIONS: L KNEE PX 3 MONTHS TECHNIQUE: 4 views of the left knee(s) were acquired. COMPARISON: Left knee radiographs dated 09/26/2018. FINDINGS: Bones: No fractures or dislocations. No suspicious bony lesions. On the left, expected postoperative alignment of medial unicompartmental arthroplasty. The hardware a ppears intact. Severe narrowing of the lateral joint space. On the right, expected postoperative alignment of total knee arthroplasty. Scattered vascular calcifications IMPRESSION: Expected postoperative alignment of left medial unicompartmental arthroplasty. 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 This appears progressed since the prior study. Reviewed by: Meng Reveles MD on 11/05/2019 3:51 PM PDT Approved by: Meng Reveles MD on 11/05/2019 3:51 PM PDT Station ID: [id number]
== END 2019-11-05 14:50 | disposition home or self-care (01) ==
LOC: DI.S 14:49
PROVIDERS: ATTEND Nurse Practitioner
DX: M17.12 Unilateral primary osteoarthritis, left knee (principal); Z96.651 Presence of right artificial knee joint

== ENCOUNTER 2019-11-07 10:04 | Outpatient (CLI) | payer MEDICARE, BC | END 2019-11-07 10:05 | disposition home or self-care (01) | LOC: LAB.S 10:04 | PROVIDERS: ATTEND Orthopaedic Surgery | DX: M25.462 Effusion, left knee (principal) | CPT/HCPCS: 36415; 85651; 86140 ==

== ENCOUNTER 2019-11-27 11:12 | Outpatient (CLI) | payer MEDICARE, BC ==
[2019-11-27 11:59] LABS: ALBUMIN 4.2 g/dL (3.2-5.5); ALBUMIN/GLOBULIN RATIO 1.7 (1.0-2.2); BILIRUBIN,TOTAL 0.9 mg/dL (0.2-1.0); CALCIUM 9.8 mg/dL (8.5-10.3); CREATININE 1.2 mg/dL (0.6-1.2); TOTAL PROTEIN 6.7 g/dL (6.7-8.2)
[2019-11-27 12:04] LABS: THYROID STIMULATING HORMONE 1.24 uIU/mL (0.34-5.60)
[2019-11-27 12:07] LABS: FREE T4 (FREE THYROXINE) 1.04 ng/dL (0.58-1.64)
--- NOTE | 2019-11-27 12:26 | XRAY Report ---
PROCEDURE: Chest 2 View X-Ray INDICATIONS: Atrial fibrillation TECHNIQUE: 2 view(s) of the chest. COMPARISON: 05/17/2017. FINDINGS: Surgical changes and devices: None. Lungs and pleura: No pleural effusions or pneumothorax. Lungs are clear. Mediastinum: Tortuous thoracic aorta with atherosclerotic calcifications at the arch. Mediastinal co ntours are otherwise normal. Heart size is within normal limits. Bones and chest wall: No suspicious bony abnormalities. Soft tissues appear unremarkable. IMPRESSION: No acute cardiopulmonary process demonstrated radiographically. No significant change in appearance of the chest when compared with April 2017 exam. Reviewed by: Yaakov Timmons MD on 11/27/2019 12:25 PM PDT Approved by: Yaakov Timmons MD on 11/27/2019 12:25 PM PDT Station ID: [id number]
== END 2019-11-27 11:13 | disposition home or self-care (01) ==
LOC: DI 11:12
PROVIDERS: ATTEND Internal Medicine Cardiovascular Disease
DX: I48.91 Unspecified atrial fibrillation (principal)
CPT/HCPCS: 36415; 71046; 80053; 84439; 84443

== ENCOUNTER 2020-06-09 07:18 | Outpatient (CLI) | payer MEDICARE, BC ==
--- NOTE | 2020-06-09 09:43 | XRAY Report ---
PROCEDURE: Chest 2 View X-Ray INDICATIONS: PAROXYSMAL ATRIAL FIBRILLATION TECHNIQUE: 2 view(s) of the chest. COMPARISON: 2 view chest 11/27/2019 FINDINGS: Surgical changes and devices: None. Lungs and pleura: No pleural effusions or pneumothorax. Lungs are mildly edematous. Mediastinum: Mediastinal contours are normal. Heart size is at the upper limits of normal. Bones and chest wall: No suspicious bony abnormalities. Soft tissues appear unremarkable. IMPRESSION: Slight pulmonary edema pattern, heart size at the upper limits of normal, no pleural eff usion seen. Little if any change from the comparison study in November of last year. Reviewed by: Nas Broderick MD on 06/09/2020 9:42 AM [facility] Approved by: Nas Broderick MD on 06/09/2020 9:42 AM PST Station ID: [id number]
[2020-06-09 16:42] LABS: ALBUMIN 3.7 g/dL (3.2-5.5); ALBUMIN/GLOBULIN RATIO 1.3 (1.0-2.2); BILIRUBIN,TOTAL 1.3 mg/dL (0.2-1.0); CALCIUM 9.6 mg/dL (8.5-10.3); CREATININE 1.2 mg/dL (0.6-1.2); TOTAL PROTEIN 6.5 g/dL (6.7-8.2)
== END 2020-06-09 07:19 | disposition home or self-care (01) ==
LOC: DI.S 07:18
PROVIDERS: ATTEND Internal Medicine Cardiovascular Disease
DX: I48.0 Paroxysmal atrial fibrillation (principal); Z79.899 Other long term (current) drug therapy
CPT/HCPCS: 36415; 80053; 84443

== ENCOUNTER 2020-08-05 08:46 | Outpatient (CLI) | payer MEDICARE, BC | END 2020-08-05 08:47 | disposition home or self-care (01) | LOC: DI 08:46 | PROVIDERS: ATTEND Internal Medicine Cardiovascular Disease | DX: I50.9 Heart failure, unspecified (principal); I48.91 Unspecified atrial fibrillation; I35.1 Nonrheumatic aortic (valve) insufficiency | CPT/HCPCS: 93306 ==

== ENCOUNTER 2020-09-28 15:12 | Outpatient (CLI) | payer MEDICARE, BC ==
--- NOTE | 2020-09-28 18:21 | Ultrasound Report ---
PROCEDURE: Duplex Lwr Ext Arterial Bilat INDICATIONS: PERIPHERAL VASCULAR DISEASE TECHNIQUE: Color and pulse Doppler interrogation was performed of both lower extremity arterial systems, with im age documentation. COMPARISON: MRI lumbar spine 10/30/2018. Lower extremity arterial Doppler 03/08/2016. FINDINGS: Right lower extremity: Common femoral artery: 137 cm/sec, with biphasic flow. Deep femoral artery: 74 cm/sec, with biphasic flow. Proximal superficial femoral artery: 106 cm/sec, with biphasic flow. Mid superficial femoral artery: 76 cm/sec, with biphasic flow. Distal superficial femoral artery: 65 cm/sec, with biphasic flow. Popliteal artery: 75 cm/sec, with biphasic flow. Posterior tibial artery: 90 cm/sec, with biphasic flow. Anterior tibial artery/dorsalis pedis: 49/59 cm/sec, with biphasic flow. Cline-scale imaging description: Calcified plaque is seen. Left lower extremity: Common femoral artery: 105 cm/sec, with biphasic flow. Deep femoral artery: 110 cm/sec, with biphasic flow. Proximal superficial femoral artery: 152 cm/sec, with triphasic flow. Mid superficial femoral artery: 99 cm/sec, with triphasic flow. Distal superficial femoral artery: 89 cm/sec, with triphasic flow. Collaterals noted. Popliteal artery: 85 cm/sec, with triphasic flow. Posterior tibial artery: 73 cm/sec, with biphasic flow. Anterior tibial artery/dorsalis pedis: 75/33 cm/sec, with monophasic/biphasic flow. Cline-scale imaging description: Calcified plaque is seen. IMPRESSION: No hemodynamically significant stenosis is identified. Biphasic waveforms are seen bilaterally. Calci fied plaque left greater than right. Consider CTA with lower extremity runoff for further evaluation Reviewed by: Asher Sarmiento MD on 09/28/2020 6:20 PM PDT Approved by: Asher Sarmiento MD on 09/28/2020 6:20 PM PDT Station ID: [id number]
== END 2020-09-28 15:13 | disposition home or self-care (01) ==
LOC: DI 15:12
PROVIDERS: ATTEND Orthopaedic Surgery
DX: I70.203 Unspecified atherosclerosis of native arteries of extremities, bilateral legs (principal)
CPT/HCPCS: 93925

== ENCOUNTER 2020-10-15 03:23 | Outpatient (CLI) | payer MEDICARE, BC | END 2020-10-15 03:24 | disposition critical access hospital (66) | LOC: EMS 03:23 | DX: R10.33 Periumbilical pain (principal) | CPT/HCPCS: A0425; A0429 ==

== ENCOUNTER 2020-10-15 03:56 | Inpatient (IN) | payer MEDICARE, BC ==
--- NOTE | 2020-10-15 04:13 | ED Physician Documentation ---
PD HPI ABD PAIN - Stated complaint Stated Complaint: Abdominal pain - Chief complaint Chief Complaint: Abd Pain - History obtained from History obtained from: Patient, Family - Additional information Additional information: Patient comes emergency department chief complaint of abdominal pain that started after he went to bed. Patient states he was feeling completely fine all day yesterday, But that sometime during the night, he awoke with a feeling of strong pain in his epigastric region, stretching down to his umbilicus. Patient indicates the pain was in the midline but seemed to spread out. That it actually seems to have gotten quite a bit better now. He states he has had similar pains before but never this strong. The patient is not aware of having an abdominal aortic aneurysm. He has had an appendectomy many years ago but otherwise no abdominal issues or surgeries. No dysuria currently. No bowel changes. No nausea or vomiting. No fevers or chills. No other complaints at this time. No chest pain. Review of Systems Ten Systems: 10 systems reviewed and negative Constitutional: reports: Reviewed and negative Eyes: reports: Reviewed and negative Ears: reports: Reviewed and negative Nose: reports: Reviewed and negative Throat: reports: Reviewed and negative Cardiac: reports: Reviewed and negative Respiratory: reports: Reviewed and negative GI: reports: Abdominal Pain : reports: Reviewed and negative Skin: reports: Reviewed and negative Musculoskeletal: reports: Reviewed and negative Neurologic: reports: Reviewed and negative Psychiatric: reports: Reviewed and negative Endocrine: reports: Reviewed and negative Immunocompromised: reports: Reviewed and negative PD PAST MEDICAL HISTORY - Past Medical History Past Medical History: Yes Cardiovascular: Atrial fibrillation Respiratory: Other Neuro: TIA, Fainting, Other Endocrine/Autoimmune: None GI: None : Benign prostate hypertrophy, Frequency HEENT: None Psych: None Musculoskeletal: Osteoarthritis, Chronic back pain, Other Derm: None - Past Surgical History Past Surgical History: Yes General: Appendectomy, Colonoscopy Ortho: Knee replacement HEENT: Tonsil/Adenoidectomy - Present Medications Home Medications: Ambulatory Orders Medication Instructions Recorded Confirmed Aspirin [Aspir 81] 81 mg PO DAILY 12/04/12 10/15/20 Cyanocobalamin (Vitamin B-12) 1,000 mcg PO DAILY 01/25/13 10/15/20 [B-12] Amiodarone HCl 100 mg PO DAILY 12/10/14 10/15/20 - Allergies Allergies/Adverse Reactions: Allergies Allergy/AdvReac Type Severity Reaction Status Date / Time No Known Drug Allergies Allergy Verified 10/15/20 04:11 - Social History Does the pt smoke?: No Smoking Status: Never smoker Does the pt drink ETOH?: Yes Does the pt have substance abuse?: No - Immunizations Immunizations are current?: Yes - POLST Patient has POLST: No PD ED PE NORMAL - Vitals Vital signs reviewed: Yes - General General: Alert and oriented X 3, No acute distress - HEENT HEENT: Atraumatic, PERRL, EOMI, Moist mucous membranes - Neck Neck: Supple, no meningeal sign - Cardiac Cardiac: RRR, No murmur - Respiratory Respiratory: No respiratory distress, Clear bilaterally - Abdomen Abdomen: Soft, Non distended, Other (Moderate epigastric tenderness, no rebound or guarding) - Back Back: No CVA TTP - Derm Derm: Normal color, Warm and dry, No rash - Extremities Extremities: No deformity - Neuro Neuro: Alert and oriented X 3 - Psych Psych: Normal mood, Normal affect Results - Vitals Vitals: Vital Signs - 24 hr 10/15/20 10/15/20 10/15/20 04:05 06:46 08:23 Temperature 36.4 C L 36.6 C Heart Rate 86 62 55 L Respiratory 18 16 18 Rate Blood Pressure 183/85 H 142/69 H 151/84 H O2 Saturation 96 99 98 10/15/20 10:52 Temperature Heart Rate 62 Respiratory 16 Rate Blood Pressure 136/79 H O2 Saturation 98 Oxygen O2 Source [With Activity] Room air O2 Source [Without Activity] Room air O2 Source Room air - Labs Labs: Laboratory Tests 10/15/20 10/15/20 10/15/20 04:45 04:45 04:45 WBC 6.8 RBC 3.54 L Hgb 12.0 L Hct 38.2 L MCV 107.9 H MCH 33.9 H MCHC 31.4 L RDW 14.6 Plt Count 177 MPV 10.3 Neut # (Auto) 5.8 Lymph # (Auto) 0.6 L [place] # (Auto) 0.3 Eos # (Auto) 0.1 Baso # (Auto) 0.0 Absolute Nucleated RBC 0.00 Nucleated RBC % 0.0 PT 13.7 H INR 1.2 Sodium 140 Potassium 4.7 Chloride 107 Carbon Dioxide 23 Anion Gap 10.0 BUN 56 H Creatinine 1.5 H Estimated GFR (MDRD) 44 L Glucose 123 H Calcium 9.2 Total Bilirubin 1.0 AST 17 ALT 11 Alkaline Phosphatase 100 Total Protein 5.8 L Albumin 3.5 Globulin 2.3 Albumin/Globulin Ratio 1.5 Lipase 71 H Urine Color Urine Clarity Urine pH Ur Specific [place] Urine Protein Urine Glucose (UA) Urine Ketones Urine Occult Blood Urine Nitrite Urine Bilirubin Urine Urobilinogen Ur Leukocyte Esterase Ur Microscopic Review Urine Culture Comments Nasal Adenovirus (PCR) Nasal B. parapertussis DNA (PCR) Nasal Coronavir 229E PCR Nasal Coronavir HKU1 PCR Nasal Coronavir NL63 PCR Nasal Coronavir OC43 PCR Nasal Enterovir/Rhinovir PCR Nasal Influenza B PCR Nasal Influenza A PCR Nasal Parainfluen 1 PCR Nasal Parainfluen 2 PCR Nasal Parainfluen 3 PCR Nasal Parainfluen 4 PCR Nasal RSV (PCR) Nasal B.pertussis DNA PCR Nasal C.pneumoniae (PCR) Malvin Human Metapneumo PCR Nasal M.pneumoniae (PCR) Nasal SARS-CoV-2 (PCR) 10/15/20 10/15/20 06:25 11:35 WBC RBC Hgb Hct MCV MCH MCHC RDW Plt Count MPV Neut # (Auto) Lymph # (Auto) [place] # (Auto) Eos # (Auto) Baso # (Auto) Absolute Nucleated RBC Nucleated RBC % PT INR Sodium Potassium Chloride Carbon Dioxide Anion Gap BUN Creatinine Estimated GFR (MDRD) Glucose Calcium Total Bilirubin AST ALT Alkaline Phosphatase Total Protein Albumin Globulin Albumin/Globulin Ratio Lipase Urine Color YELLOW Urine Clarity CLEAR Urine pH 5.5 Ur Specific [place] 1.020 Urine Protein NEGATIVE Urine Glucose (UA) NEGATIVE Urine Ketones NEGATIVE Urine Occult Blood NEGATIVE Urine Nitrite NEGATIVE Urine Bilirubin NEGATIVE Urine Urobilinogen 0.2 (NORMAL) Ur Leukocyte Esterase NEGATIVE Ur Microscopic Review NOT INDICATED Urine Culture Comments NOT INDICATED Nasal Adenovirus (PCR) NOT DETECTED Nasal B. parapertussis DNA (PCR) NOT DETECTED Nasal Coronavir 229E PCR NOT DETECTED Nasal Coronavir HKU1 PCR NOT DETECTED Nasal Coronavir NL63 PCR NOT DETECTED Nasal Coronavir OC43 PCR NOT DETECTED Nasal Enterovir/Rhinovir PCR NOT DETECTED Nasal Influenza B PCR NOT DETECTED Nasal Influenza A PCR NOT DETECTED Nasal Parainfluen 1 PCR NOT DETECTED Nasal Parainfluen 2 PCR NOT DETECTED Nasal Parainfluen 3 PCR NOT DETECTED Nasal Parainfluen 4 PCR NOT DETECTED Nasal RSV (PCR) NOT DETECTED Nasal B.pertussis DNA PCR NOT DETECTED Nasal C.pneumoniae (PCR) NOT DETECTED Malvin Human Metapneumo PCR NOT DETECTED Nasal M.pneumoniae (PCR) NOT DETECTED Nasal SARS-CoV-2 (PCR) NOT DETECTED - Rads (name of study) CT abd/pelvis Radiology: Final report received, EMP read indepedently, See rad report (perforated viscus with free air.) PD MEDICAL DECISION MAKING - ED course Complexity details: reviewed results, re-evaluated patient, considered differential, d/w patient, d/w family ED course: Patient was feeling quite a bit better upon arrival, but given his age, location of tenderness, and the unusual nature of his symptoms, I did decide to work him up with labs and ultimately, CT scan of the abdomen and pelvis. This showed free air in the abdomen without a clear source, but presumed to be secondary to colonic perforation. I spoke with Dr. Sullivan, who agreed to admit the pt to his service. Zosyn was started. Pt remained stable throughout his stay in the ED. Departure - Departure Disposition: [facility] DC/Xfer Clinical Impression: Perforated abdominal viscus Condition: Serious Discharge Date/Time: 10/15/20 15:45
[2020-10-15] MEDS ORDERED: IOVERSOL 320 100 ML VIAL IVP ONE ×2 (04:18→05:45)
[2020-10-15 04:50] LABS: BASOPHILS % (AUTO) 0.3 %; EOSINOPHILS # (AUTO) 0.1 10^3/uL (0.0-0.7); EOSINOPHILS % (AUTO) 1.8 %; HCT - HEMATOCRIT 38.2 % (42.0-52.0); LYMPHOCYTES # (AUTO) 0.6 10^3/uL (1.5-3.5); LYMPHOCYTES % (AUTO) 8.8 %; MEAN CORPUSCULAR HEMOGLOBIN 33.9 pg (27.0-31.0); MEAN CORPUSCULAR HGB CONC 31.4 g/dL (32.0-36.0); MEAN CORPUSCULAR VOLUME 107.9 fL (80.0-94.0); MEAN PLATELET VOLUME 10.3 fL (7.4-11.4); MONOCYTES # (AUTO) 0.3 10^3/uL (0.0-1.0); MONOCYTES % (AUTO) 4.1 %; NEUTROPHILS # (AUTO) 5.8 10^3/uL (1.5-6.6); NEUTROPHILS % (AUTO) 84.9 %; PLT - PLATELET COUNT 177 10^3/uL (130-450); RED BLOOD COUNT 3.54 10^6/uL (4.70-6.10); RED CELL DISTRIBUTION WIDTH 14.6 % (12.0-15.0); WHITE BLOOD COUNT 6.8 x10^3/uL (4.8-10.8)
[2020-10-15 04:59] LABS: INR 1.2 (0.8-1.2); PT - PROTHROMBIN TIME 13.7 secs (9.9-12.6)
[2020-10-15 05:01] LABS: ALBUMIN 3.5 g/dL (3.2-5.5); ALBUMIN/GLOBULIN RATIO 1.5 (1.0-2.2); CALCIUM 9.2 mg/dL (8.5-10.3); CREATININE 1.5 mg/dL (0.6-1.2); POTASSIUM 4.7 mmol/L (3.5-5.0); TOTAL PROTEIN 5.8 g/dL (6.7-8.2)
[2020-10-15] MEDS ORDERED: SODIUM CHLORIDE 0.9% 1,000 ML IV STA (06:22)
[2020-10-15] MEDS ORDERED: PIPERACILLIN/TAZOBACTAM 3.375 GM in SODIUM CHLORIDE 0.9% MINIBAG 100 ML IV STA (06:23)
[2020-10-15] MEDS ORDERED: HYDROmorphone 1 MG/ML CARPUJECT IVP STA (06:35)
[2020-10-15 06:44] LABS: BILIRUBIN,URINE NEGATIVE (NEGATIVE); GLUCOSE, URINE (UA) NEGATIVE (NEGATIVE); KETONES,URINE (UA) NEGATIVE (NEGATIVE); LEUKOCYTE ESTERASE, URINE NEGATIVE (NEGATIVE); NITRITE,URINE NEGATIVE (NEGATIVE); OCCULT BLOOD,URINE NEGATIVE (NEGATIVE); PH,URINE 5.5 PH (5.0-7.5); PROTEIN,URINE NEGATIVE (NEGATIVE); UROBILINOGEN,URINE 0.2 (NORMAL) E.U./dL (NORMAL)
[2020-10-15 06:49] LABS: CLARITY,URINE CLEAR (CLEAR)
[2020-10-15] MEDS ORDERED: IOPAMIDOL-300 50 ML VIAL ONE (08:45)
--- NOTE | 2020-10-15 09:24 | CT Report ---
PROCEDURE: Abdomen/Pelvis W INDICATIONS: severe abdominal pain, intermittent CONTRAST: IV CONTRAST: Optiray 320 ml: 100 PO CONTRAST: *NO PO CONTRAST TECHNIQUE: After the administration of intravenous contrast, 5 mm thick sections acquired from the diaphragms to the symphysis. 5 mm thick coronal and sagittal reformats were acquired. For radiation dose reducti on, the following was used: automated exposure control, adjustment of mA and/or kV according to heidi ent size. COMPARISON: None. FINDINGS: Mild fibrotic changes at the lung bases bilaterally. Subsegmental basilar atelectasis. Hear t size is mildly enlarged. There is four-vessel coronary atherosclerosis. Normal CT appearance of the liver, spleen, gallbladder, and adrenal glands. There is an approximately 4.3 x 2.5 cm hypodense mass in the pancreas with dilatation of the pancreat ic duct distal to the mass up to 7 mm. There are also atrophic changes of the distal pancreas. No per ipancreatic fat stranding. Both kidneys demonstrate mild atrophic changes with no findings of obstruction or urinary tract calcu rosanna. Multiple urinary bladder diverticula. Prostate gland is within normal limits with central calcif ication. Extensive aortic atherosclerotic disease extending into the major visceral branches. The IVC is paten t. Small sliding-type hiatal hernia. No abnormally dilated or obvious thickened loop of bowel. There is sigmoid diverticulosis without findings of diverticulitis. Moderate volume pneumoperitoneum and small volume ascites without an obvious source. Nonspecific soft tissue density containing punctate calcifications within the right inguinal canal. IMPRESSION: Pneumoperitoneum and small volume ascites. This is likely colonic although there is no definite sourc e lesion identified. Mass in the body of the pancreas with atrophy of the distal pancreas and dilation of the pancreatic d uct distal to the mass. This is suspicious for malignancy and should be further evaluated with MRI. Sigmoid diverticulosis without findings of diverticulitis. 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 Soft tissue density containing punctate calcifications within the right inguinal canal. This may repr esent a nondistended testicle although there are other differential considerations. Cardiomegaly. Reviewed by: Yaakov Timmons MD on 10/15/2020 9:23 AM PDT Approved by: Yaakov Timmons MD on 10/15/2020 9:23 AM PDT Station ID: [id number]
--- NOTE | 2020-10-15 11:02 | CT Report ---
PROCEDURE: ABDOMEN WO INDICATIONS: perforation, oral contrast please CONTRAST: Oral contrast TECHNIQUE: After the administration of oral contrast, 5 mm thick sections acquired from the diaphragms to the il iac crests. 5 mm coronal and sagittal reformats were then performed. For radiation dose reduction, the following was used: automated exposure control, adjustment of mA and/or kV according to patient size. COMPARISON: CT of abdomen and pelvis from the same day at 5:28 AM. FINDINGS: Image quality: Excellent. Lung bases: Bibasilar dependent atelectasis is seen. Heart size is normal. Solid organs: Liver and spleen are normal in size. Gallbladder is within normal limits. Pancreas i s normal in contours. No adrenal nodules. Both kidneys are normal in size, without hydronephrosis o r gross nephrolithiasis. Residual excreted IV contrast from earlier CT study is seen within renal col lecting system. Peritoneum and bowel: Again noted is moderate amount of peritoneal free air unchanged from earlier st udy. No significant amount of free fluid is seen. Markedly distended gastric lumen with oral contrast is noted. There is suggestion of distal gastric wall thickening/proximal duodenal wall thickening an d right upper quadrant. No contrast extravasation. No evidence of small bowel obstruction or abnormal small bowel wall thickening. Visualized portion of colon shows fecal stasis in the colon without col onic wall thickening or pericolonic fat stranding. Nodes and vessels: No retroperitoneal or mesenteric adenopathy by size criteria. Aorta and inferior vena cava are normal in size. Mild to moderate amount of atherosclerotic calcifications in the abdo sedrick aorta is seen. Bones: No suspicious bony lesions. No vertebral body compression fractures. Degenerative disc disea se throughout lower thoracic and lumbar spine is seen. Miscellaneous: No ventral hernias. IMPRESSION: 1. Again seen is significant amount of peritoneal free air. No extravasated oral contrast is seen. No significant abdominal free fluid. 2. Markedly distended gastric lumen with distal gastric wall thickening/proximal duodenal wall thicke alvaro in right upper quadrant. Overall finding is suggestive of perforated duodenal ulcer. No other ar ea of abnormal bowel wall thickening is seen. Mild fecal stasis in the colon suggestive of mild const ipation. Reviewed by: Kayode Butler MD on 10/15/2020 11:01 AM PDT Approved by: Kayode Butler MD on 10/15/2020 11:01 AM PDT Station ID: [id number]
[2020-10-15] MEDS ORDERED: ONDANSETRON 4 MG/2 ML VIAL IVP PRN ×2 (11:48→13:13)
--- NOTE | 2020-10-15 11:48 | SURGERY HX AND PHYSICAL(T) ---
Surgical History & Physical - Chief Complaint/HPI Chief Complaint: Pneumoperitoneum and epigastric pain History of Present Illness: 89-year-old male presenting for diffuse pneumoperitoneum and abdominal pain. Several day history of "heartburn" and epigastric discomfort. Patient has bilateral knee and upper extremity arthritis for which he takes ibuprofen/nonsteroidals several times daily up to 4-5. Patient takes no acid suppressive therapy and has never had upper endoscopy to evaluate his foregut pain. Has atrial fibrillation but only takes aspirin. No other systemic anticoagulation. Patient has had no prior abdominal surgical intervention other than remote appendectomy No significant family history. Notable past surgical history to include appendectomy. Patient denies change in bowel function, denies bleeding per rectum, and also however reports significant "heartburn" and reflux associated symptoms. Patient does not use tobacco. Patient has no alcohol use. No history of heart attack or stroke. Patient takes no systemic anticoagulation. Endoscopic history includes remote colonoscopy however patient does not remember exactly. - PMH/PSH/Social Hx Does the pt have a hx of MRSA?: No Neurological History: TIA, Fainting, Other Eyes, Ears, Nose, Throat: None Cardiovascular: Atrial fibrillation Respiratory: Other Skin: None Endocrine/Autoimmune: None Gastrointestinal: None Urinary: Benign prostate hypertrophy, Frequency Musculoskeletal: Osteoarthritis, Chronic back pain, Other Blood Disorders: None Psychiatric: None General: Appendectomy, Colonoscopy Orthopedic: Knee replacement Eyes Ears Nose Throat (EENT): Tonsil/Adenoidectomy Smoking Status: Never smoker Does the pt drink ETOH?: Yes Frequency: Occasional Does the pt have substance abuse?: No - Home Meds and Allergies Home Medications: Aspirin [Aspir 81] 81 mg PO DAILY 12/04/12 Cyanocobalamin (Vitamin B-12) [B-12] 1,000 mcg PO DAILY 01/25/13 Amiodarone HCl 100 mg PO DAILY 12/10/14 Allergies/Adverse Reactions: Allergies Allergy/AdvReac Type Severity Reaction Status Date / Time No Known Drug Allergies Allergy Verified 10/15/20 04:11 - Review of Systems Gastrointestinal: Abdominal pain - Vital Signs Heart Rate: 62 Blood Pressure: 136/79 Temperature: 36.6 C Respiratory Rate: 16 O2 Saturation: 98 Weight (kg): 78.925 kg Height: 1.75 m - Physical Exam Comments/Other: General Appearance: positive: No acute distress Eyes Bilateral: positive: Normal inspection ENT: positive: ENT inspection nml Neck: positive: Nml inspection Respiratory: positive: Chest non-tender, No respiratory distress, Breath sounds nml. negative: Wheezes, Rales, Rhonchi Cardiovascular: positive: Regular rate & rhythm Extremities: positive: Non-tender, Full ROM, Nml appearance Neurologic/Psychiatric: positive: Oriented x3, CN's nml (2-12) Abdomen specified: 1. Distended, no scars or palpable hernias. 2. Rebound and guarding diffusely. Signs of mild peritonitis. - Patient Review Patient Review: Problems were reviewed with the patient during this visit. Medications were reviewed with the patient during this visit. Allergies were reviewed this patient during this visit. Pertinent Tests Reviewed: All pertitent test for this patient were reviewed. - Assessment & Plan Assessment and Plan: 89-year-old male presenting with peritonitis and pneumoperitoneum. Longstanding arthritic pain with nonsteroidal self-medication chronic up to 4 times daily over the last several months. No proton pump inhibition or acid suppressive therapy. No history of upper or lower endoscopy. Patient with recent onset epigastric discomfort. Imaging concerning for pancreatic mass however repeat imaging with oral contrast shows proximal duodenal thickening with some gastric outlet obstruction likely consistent with peptic ulcer disease. This correlates with the patient's recent history of chronic nonsteroidal intake absent acid suppression therapy. Given the significant pneumoperitoneum and the associated peritonitis we will proceed with diagnostic laparoscopy for washout and drain placement. Bowel rest, IV antibiotics, therapeutic proton pump inhibition, and hospitalist consult given the patient's advanced age. Patient will need preoperative chest x-ray and EKG as well. CT abdomen pelvis impression on admission: 1. Pneumoperitoneum with small amount of ascites. This is likely from colonic perforation. 2. Mass in the body of the pancreas with dilation of the dorsal pancreatic duct. This finding is concerning for neoplastic process and may be further evaluated with MRI. 3. Diverticulosis coli. 4. Multiple urinary bladder diverticula suggestive of chronic urinary bladder outlet obstruction. 5. Soft tissue density within the right inguinal canal may be represent a nondescended testicle but is nonspecific. This may be evaluated further by MRI. 6. Cardiomegaly 7. Spondylosis with grade 1 spondylolisthesis L5-S1. Repeat CT abdomen with oral contrast no IV contrast. 1. Again seen is significant amount of peritoneal free air. No extravasated oral contrast is seen. No significant abdominal free fluid. 2. Markedly distended gastric lumen with distal gastric wall thickening proximal duodenal wall thickening in the right upper quadrant overall findings suggestive perforated duodenal ulcer. No other area of abnormal wall thickening is seen. Mild fecal stasis in the colon suggestive of mild constipation
--- NOTE | 2020-10-15 12:39 | XRAY Report ---
PROCEDURE: Chest 1 View X-Ray INDICATIONS: Pneumoperitoneum, preop TECHNIQUE: One view of the chest was acquired. COMPARISON: June 09, 2020, CT abdomen, 10/15/2020 FINDINGS: Heart size is enlarged, and there is mild vascular congestion, similar to the prior. Atherosclerotic calcification of the abdominal aorta without evidence of aneurysm. No focal infiltrate present. Large amount of free air noted beneath both hemidiaphragms, similar to the concurrent CT. Osseous str uctures unremarkable. IMPRESSION: 1. Pneumoperitoneum, concordant with recent CT. 2. Cardiomegaly with mild vascular congestion, similar to prior Reviewed by: Ayo Lopes MD on 10/15/2020 11:37 AM MÓNICA Approved by: Ayo Lopes MD on 10/15/2020 11:37 AM MÓNICA Station ID: [id number]
[2020-10-15] MEDS ORDERED: IOPAMIDOL-300 50 ML VIAL PO ONE (12:55)
--- NOTE | 2020-10-15 13:11 | ANESTHESIA ---
Pre-Anesthesia VS, & Labs - Diagnosis perforated ulcer - Procedure las assisted exploratory laparotomy Vital Signs: Temp Pulse Resp BP Pulse Ox 36.6 C 62 16 136/79 H 98 10/15/20 12:07 10/15/20 12:07 10/15/20 12:07 10/15/20 12:07 10/15/20 12:07 Height: 5 ft 9 in Weight (kg): 78.925 kg Body Mass Index: 25.7 BMI Classification: Overweight - NPO >8 hours - Lab Results Current Lab Results: Laboratory Tests 10/15/20 04:45: Sodium 140, Potassium 4.7, Chloride 107, Carbon Dioxide 23, Anion Gap 10.0, BUN 56 H, Creatinine 1.5 H, Estimated GFR (MDRD) 44 L, Glucose 123 H, Calcium 9.2, Total Bilirubin 1.0, AST 17, ALT 11, Alkaline Phosphatase 100, Total Protein 5.8 L, Albumin 3.5, Globulin 2.3, Albumin/Globulin Ratio 1.5, Lipase 71 H 10/15/20 04:45: PT 13.7 H, INR 1.2 10/15/20 04:45: WBC 6.8, RBC 3.54 L, Hgb 12.0 L, Hct 38.2 L, MCV 107.9 H, MCH 33 .9 H, MCHC 31.4 L, RDW 14.6, Plt Count 177, MPV 10.3, Neut # (Auto) 5.8, Lymph # (Auto) 0.6 L, [place] # (Auto) 0.3, Eos # (Auto) 0.1, Baso # (Auto) 0.0, Absolute Nucleated RBC 0.00, Nucleated RBC % 0.0 Lab results reviewed: Yes Fish Bones: 10/15/20 04:45 10/15/20 04:45 Home Medications and Allergies Active Medications Enoxaparin Sodium (Enoxaparin 40 Mg/0.4 Ml Syringe) 40 mg SUBQ DAILY PETRA Hydromorphone HCl (Hydromorphone 0.5 Mg/0.5 Ml Syringe) 0.5 mg IVP Q2H PRN PRN Reason: Pain 8 to 10 Potassium Chloride/Dextrose/Sod Cl (D5ns W/20 Meq Kcl) 1,000 mls @ 125 mls/hr IV .Q8H PETRA Acetaminophen (Ofirmev) 100 mls @ 400 mls/hr IV Q6HR PRN PRN Reason: PAIN Pantoprazole Sodium 80 mg/ (Sodium Chloride) 100 mls @ 10 mls/hr IV .Q10H PETRA Insulin Aspart (Insulin Aspart 300 Unit/3 Ml Pen) 1 - 5 unit SUBQ 0800,1200,1700,2100 PETRA; Protocol Iopamidol (Iopamidol-300 50 Ml Vial) 50 ml PO ONCE ONE Stop: 10/15/20 12:56 Last Admin: 10/15/20 12:55 Dose: 50 ml Documented by: Methocarbamol (Methocarbamol 500 Mg Tablet) 500 mg PO Q6HR PETRA Ondansetron HCl (Ondansetron 4 Mg/2 Ml Vial) 4 mg IVP Q6HR PRN PRN Reason: Nausea / Vomiting Pantoprazole Sodium (Pantoprazole 40 Mg Vial) 40 mg IVP QDAC PETRA Sodium Chloride (Sodium Chloride Flush 0.9% 10 Ml Syringe) 10 ml IVP 0100,0900,1700 PETRA Sodium Chloride (Sodium Chloride Flush 0.9% 10 Ml Syringe) 10 ml IVP PRN PRN PRN Reason: NEEDED PER PROVIDER ORDERS Aspirin [Aspir 81] 81 mg PO DAILY 12/04/12 Cyanocobalamin (Vitamin B-12) [B-12] 1,000 mcg PO DAILY 01/25/13 Amiodarone HCl 100 mg PO DAILY 12/10/14 Allergies/Adverse Reactions: Allergies Allergy/AdvReac Type Severity Reaction Status Date / Time No Known Drug Allergies Allergy Verified 10/15/20 04:11 Anes History & Medical History - Anesthetic History Anesthesia Complications: reports: No previous complications Family history of Anesthesia Complications: Denies Family history of Malignant Hyperthermia: Denies - Medical History Cardiovascular: reports: Atrial fibrillation, Other (in SR on Amiodarone) Pulmonary: reports: Other Gastrointestinal: reports: None, Other (perforated ulcer) Urinary: reports: Benign prostate hypertrophy, Frequency Neuro: reports: TIA, Fainting, Other Musculoskeletal: reports: Osteoarthritis, Chronic back pain, Other (uses walker) Endocrine/Autoimmune: reports: None Blood Disorders: reports: None Skin: reports: None Smoking Status: Never smoker - Surgical History General: reports: Appendectomy, Colonoscopy Eyes Ears Nose Throat (EENT): reports: Tonsil/Adenoidectomy Orthopedic: reports: Knee replacement Exam General: Alert, Oriented x3, Cooperative Dental: Poor dentition, Other (poor dentition with multiple missing teeth. pt denies any current loose teeth. pt left bridge at home) Mouth Openin Fingerbreadth Neck Mobility: Normal Respiratory: Lungs clear Cardiovascular: Regular rate Abdomen: Normal bowel sounds Plan Anesthesia Type: General Consent for Procedure(s) Verified and Reviewed: Yes Code Status: Attempt Resuscitation ASA classification: 3-Severe systemic disease Is this case an emergency?: Yes
[2020-10-15] MEDS ORDERED: METOCLOPRAMIDE 10 MG/2 ML VIAL IVP PRN (13:13)
[2020-10-15] MEDS ORDERED: HYDROmorphone 0.5 MG/0.5 ML SYRINGE IVP PRN (13:13)
[2020-10-15] MEDS ORDERED: NALOXONE 0.4 MG/ML VIAL IVP PRN (13:13)
[2020-10-15] MEDS ORDERED: ATROPINE ABBOJECT 1 MG/10 ML SYRINGE IVP PRN (13:13)
[2020-10-15] MEDS ORDERED: fentaNYL 100 MCG/2 ML VIAL IVP PRN (13:13)
[2020-10-15] MEDS ORDERED: MORPHINE 2 MG/ML CARPUJECT IVP PRN (13:13)
[2020-10-15] MEDS ORDERED: ePHEDrine 50 MG/ML VIAL IVP PRN (13:13)
[2020-10-15 13:40] LABS: B. PARAPERTUSSIS- RESP PCR PAN NOT DETECTED; B. PERTUSSIS- RESP PCR PANEL NOT DETECTED; C. PNEUMONIAE- RESP PCR PANEL NOT DETECTED; CORONAVIRUS 229E-RESP PCR NOT DETECTED; CORONAVIRUS HKU1-RESP PCR NOT DETECTED; CORONAVIRUS NL63-RESP PCR NOT DETECTED; CORONAVIRUS OC43-RESP PCR NOT DETECTED; HUMAN METAPNEUMOVIRUS NOT DETECTED; INFLUENZA A- RESP PCR PANEL NOT DETECTED; INFLUENZA B - RESP PCR PANEL NOT DETECTED; M. PNEUMONIAE- RESP PCR PANEL NOT DETECTED; PARAINFLUENZA VIRUS 1 NOT DETECTED; PARAINFLUENZA VIRUS 2 NOT DETECTED; PARAINFLUENZA VIRUS 3 NOT DETECTED; PARAINFLUENZA VIRUS 4 NOT DETECTED; RHINOVIRUS/ENTEROVIRUS NOT DETECTED; RSV- RESP PCR PANEL NOT DETECTED; SARS-CoV-2 -RESP PCR PANEL NOT DETECTED
[2020-10-15] MEDS ORDERED: LACTATED RINGERS 1,000 ML IV SCH (14:00)
[2020-10-15] MEDS: PANTOPRAZOLE 80 MG in SODIUM CHLORIDE 0.9% 100ML 100 ML IV SCH (17:26)
[2020-10-15] MEDS: SODIUM CHLORIDE FLUSH 0.9% 10 ML SYRINGE IVP SCH (17:27)
[2020-10-15] MEDS: D5NS W/20 MEQ KCL 1,000 ML IV SCH (17:40)
[2020-10-15] MEDS: PIPERACILLIN/TAZOBACTAM 3.375 GM in SODIUM CHLORIDE 0.9% MINIBAG 100 ML IV SCH ×2 (17:41→22:36)
[2020-10-15] MEDS: INSULIN ASPART 300 UNIT/3 ML PEN SUBQ SCH ×3 (17:58→22:19)
[2020-10-15] MEDS: methocarbamoL 500 MG TABLET PO SCH ×2 (18:00→18:01)
[2020-10-15] MEDS ORDERED: LIDOCAINE-MPF 2% 5 ML VIAL ONE (18:47)
[2020-10-15] MEDS ORDERED: PROPOFOL 200 MG/20 ML VIAL IVP ONE (18:47)
[2020-10-15] MEDS ORDERED: BUPIVACAINE 0.5%-EPI 1:200000 PF 30 ML VIAL ONE (18:48)
[2020-10-15] MEDS ORDERED: fentaNYL 100 MCG/2 ML VIAL ONE (18:48)
[2020-10-15] MEDS ORDERED: LIDOCAINE MPF 2%-EPI 1:200000 20 ML VIAL ONE (18:48)
[2020-10-15] MEDS ORDERED: BUPIVACAINE 0.5%-EPI 1:200000 PF 30 ML VIAL SUBQ ONE (19:47)
[2020-10-15] MEDS ORDERED: LIDOCAINE 2%-EPI 1:100000 20 ML MDV SUBQ ONE (19:47)
[2020-10-15] MEDS ORDERED: ONDANSETRON 4 MG/2 ML VIAL ONE (19:53)
[2020-10-15] MEDS ORDERED: METHYLENE BLUE 0.5% 50 MG/10 ML AMPULE ONE (20:07)
[2020-10-15] MEDS ORDERED: SUGAMMADEX 200 MG/2 ML VIAL IVP ONE (20:59)
[2020-10-15] MEDS ORDERED: LACTATED RINGERS 900 ML IV ONE (21:18)
[2020-10-15] MEDS ORDERED: ALBUTEROL NEB 2.5 MG/3 ML INH PRN (21:33)
[2020-10-15] MEDS ORDERED: IPRATROPIUM 0.2 MG/ML NEB INH PRN (21:33)
--- NOTE | 2020-10-15 21:39 | ANESTHESIA POST OP EVALUATION ---
Anesthesia Post Eval - Post Anesthesia Eval Vitals: Last Vital Signs Temp 36.8 C 10/15/20 21:30 Pulse 81 10/15/20 21:30 Resp 13 10/15/20 21:30 BP 129/80 10/15/20 21:30 Pulse Ox 100 10/15/20 21:30 CV Function Including HR & BP: Stable Pain Control: Satisfactory Nausea & Vomiting: Negative Mental Status: Baseline Respiratory Status: Airway Patent Hydration Status: Satisfactory Anesthesia Complications: None
--- NOTE | 2020-10-15 21:42 | OPERATIVE REPORT ---
Operative Report - General Admit Date: 10/15/20 Procedure Date: 10/15/20 Planned Procedure: 1. Diagnostic laparoscopy 2. Abdominal washout 3. Drain placement 4. Possible Andrei patch Pre-Op Diagnosis: Peritonitis; pneumoperitoneum; abdominal pain; suspected pancreatic mass Procedure Performed: 1. Diagnostic laparoscopy 2. Abdominal washout, laparoscopic peritoneal lavage 3. Peritoneal sampling, laparoscopic 4. Partial omentectomy, excisional laparoscopic 5. Laparoscopic assisted liver biopsy, Sánchez-Cut 6. Laparoscopic assisted gastric versus pancreatic biopsy, Sánchez-Cut 7. Drain placement laparoscopic assisted 8. Umbilical hernia repair Post Op Diagnosis: Same; Lt hepatic mass; gastric versus pancreatic mass; purulent peritonitis - Procedure Note Primary Surgeon: Nate Secondary Surgeon: Michael Anesthesia Provider: Leah Anesthesia Technique: General ET tube, Local Pathology: 1. Peritoneal fluid for culture 2. Peritoneal fluid for cytology 3. Fibrinous exudate for culture 4. Gastric versus pancreatic mass for pathology 5. Liver biopsy for pathology 6. Omentum for pathology Estimated Blood Loss (mL): 25 Drain/Tube Type: Myron drain Indications: EMR Findings: 1. Purulent peritonitis, diffuse 2. Large gastric versus pancreatic mass 3. Methylene blue instilled in the stomach with no extravasation 4. No active bile extravasation seen 5. Signs of perforated gastric versus duodenal ulcer appreciated with foregut fibrinous exudate 6. Umbilical hernia 7. Left hepatic lobe mass Complications: None - Other Other Information/Narrative: Procedure performed: 1. Diagnostic laparoscopy 2. Abdominal washout, laparoscopic peritoneal lavage 3. Peritoneal sampling, laparoscopic 4. Partial omentectomy, excisional laparoscopic 5. Laparoscopic assisted liver biopsy, Sánchez-Cut 6. Laparoscopic assisted gastric versus pancreatic biopsy, Sánchez-Cut 7. Drain placement laparoscopic assisted 8. Umbilical hernia repair Intraoperative findings: 1. Purulent peritonitis, diffuse 2. Large gastric versus pancreatic mass 3. Methylene blue instilled in the stomach with no extravasation 4. No active bile extravasation seen 5. Signs of perforated gastric versus duodenal ulcer appreciated with foregut fibrinous exudate 6. Umbilical hernia 7. Left hepatic lobe mass Procedure note: The patient was taken to the operating room placed supine on the operating table. The patient was already obtained for informed consent. Patient was offloaded and padded where appropriate. The patient was induced for general endotracheal anesthesia. The patient was placed for Owens catheter. The patient was prepped and draped in the usual sterile fashion. The timeout was called and agreed to by all in the room. The plan was to proceed laparoscopically given the patient's presentation with peritonitis and diffuse intra-abdominal fluid presumptively secondary to peptic ulcer disease likely perforated. Although the subsequent CAT scan with oral contrast showed no extravasation, the patient was indicated for operative intervention secondary to the peritonitis and the need to widely drain, moreover there was concern for a gastric versus a pancreatic mass that could be assessed together with the peritoneal fluid sampling and other diagnostic interventions. Patient was chosen for placement laparoscopic access from the umbilicus. A circumlinear incision was made and deepened through the subcutaneous fat with Bovie electrocautery the umbilicus revealed a hernia which was plan for repair at the conclusion of this case. The stalk was elevated and divided without any complication of injuring the overlying skin. The umbilical defect was enlarged to accomplish and accommodate the Dior trocar thereafter the abdomen was insu fflated to 50 mmHg without any complication. The abdomen was needle immediately notable for purulent peritonitis and that we plan to place additional trochars for further evaluation. Suprapubic trocar left lower quadrant trocar and right lower quadrant trochars were placed to 5 mm under direct laparoscopic visualization. We proceeded to aspirate fluid as follows: 1. Fluid was aspirated for culture and sensitivity aerobic 2. Fluid was aspirated and collected for anaerobic culture 3. The abdomen was irrigated and aspirated for cytology to rule out diffuse intraperitoneal malignancy. We thereafter proceeded to evaluate the left upper quadrant which was obviously the source of the patient's likely peritonitis to include perforated gastric versus duodenal ulcer. There was no active extravasation of the either blood nor bilious contents for the foregut and after a careful dissection with the laparoscopic a suction retail selling floor leader and blunt instruments we still could not find any areas concerning for an active perforated hollow viscus. We thereafter instructed anesthesia to dilute methylene blue and inserted this through the nasogastric tube to act as an indicator for any persistent extravasation of bilious contents during this operative intervention absent any visualization of blue dye and continued to evaluation was without any concerns for an active injury hollow viscus and at this time we felt it was appropriate just to continue with the diagnostic laparoscopy diffuse peritoneal lavage and wide local drain placement. We aggressively irrigated and aspirated the entirety of the abdomen clear with 3 L of sterile warm saline. At this time we noticed a large retroperitoneal mass within the lesser sac and upon dissecting the omentum overlying we proceeded to note that that this area was consistent with the findings on CAT scan and this could either be gastric and/or pancreatic. Given the size of this mass and the absent ability to perform endoscopic evaluation in this patient who presented with perforated hollow viscus which would preclude insufflation endoluminally, we opted to proceed with Sánchez-Cut core biopsies through one of the trocar sites which were placed epigastric as a means to provide multiple passes. This was achieved without any complication without any bleeding and without any bilious drainage this was a large solid firm mass and there was no concern for creating a fistula given its size and its radiographic characteristics. Thereafter we proceeded to perform passes of the left liver lobe lesion that was along the falciform that was also concerning for malignancy. This was without any complication and specimens were sent as well. Pathology is as follows is to the specimen sent: 1. Peritoneal fluid for culture 2. Peritoneal fluid for cytology 3. Fibrinous exudate for culture 4. Gastric versus pancreatic mass for pathology 5. Liver biopsy for pathology 6. Omentum for pathology Please note that the omentum was also resected and a portion of this was sent for pathology as well to rule out metastatic disease. At this time we reevaluated the entirety of the abdomen without any subsequent drainage of blue dye through the stomach which was ultimately aspirated. The abdomen was again irrigated and aspirated clear with no evidence of bilious drainage. At this time we placed 2 drains 1 in the right upper quadrant along first portion of the duodenum the pylorus and into and overlying the retroperitoneal mass which was likely pancreatic versus gastric, fixed enlarged. This was the area that was biopsied superficially with the Sánchez-Cut device. A second 19 Myron drain was placed in the pelvis. Patient was desufflated for the abdomen with all trochars removed after the drains had been placed laparoscopically through 2 of the 4 trocar sites without any complication. Please drains were secured in place with 2-0 nylon. The umbilicus was closed with several [id number]'s of 0 Vicryl in order to close the patient's umbilical hernia. Skin was performed for umbilical plasty in the skin incisions throughout were reapproximated with skin muriel. I was present for the entirety of this operative intervention. The patient was tolerant of the operative intervention without any complication. All counts for sponges needles and instruments were correct at the conclusion of his operative case. Please note that voice recognition software was used to transcribe this note and inadvertent errors might persist in spite of review and editing. I am obliged to you for your attention. I am thankful to you for allowing me to participate with you in this care of this patient.
[2020-10-15] MEDS ORDERED: HALOPERIDOL 5 MG/ML VIAL ONE (22:08)
--- NOTE | 2020-10-15 22:09 | PROVIDER PROGRESS NOTE ---
Progress Note BRIEF OP NOTE Admit Date: 10/15/20 Procedure Date: 10/15/20 Planned Procedure: 1. Diagnostic laparoscopy 2. Abdominal washout 3. Drain placement 4. Possible Andrei patch Pre-Op Diagnosis: Peritonitis; pneumoperitoneum; abdominal pain; suspected pancreatic mass Procedure Performed: 1. Diagnostic laparoscopy 2. Abdominal washout, laparoscopic peritoneal lavage 3. Peritoneal sampling, laparoscopic 4. Partial omentectomy, excisional laparoscopic 5. Laparoscopic assisted liver biopsy, Sánchez-Cut 6. Laparoscopic assisted gastric versus pancreatic biopsy, Sánchez-Cut 7. Drain placement laparoscopic assisted 8. Umbilical hernia repair Post Op Diagnosis: Same; Lt hepatic mass; gastric versus pancreatic mass; purulent peritonitis - Procedure Note Primary Surgeon: Nate Secondary Surgeon: Michael Anesthesia Provider: Leah Anesthesia Technique: General ET tube, Local Pathology: 1. Peritoneal fluid for culture 2. Peritoneal fluid for cytology 3. Fibrinous exudate for culture 4. Gastric versus pancreatic mass for pathology 5. Liver biopsy for pathology 6. Omentum for pathology Estimated Blood Loss (mL): 25 Drain/Tube Type: Myron drain Indications: EMR Findings: 1. Purulent peritonitis, diffuse 2. Large gastric versus pancreatic mass 3. Methylene blue instilled in the stomach with no extravasation 4. No active bile extravasation seen 5. Signs of perforated gastric versus duodenal ulcer appreciated with foregut fibrinous exudate 6. Umbilical hernia 7. Left hepatic lobe mass Complications: None
[2020-10-15] MEDS: HYDROmorphone 0.5 MG/0.5 ML SYRINGE IVP PRN ×2 (22:14→23:59)
[2020-10-15] MEDS: HEPARIN 5,000 UNIT/ML VIAL SUBQ SCH (22:18)
[2020-10-15] MEDS: HALOPERIDOL 5 MG/ML VIAL IVP PRN (22:18)
[2020-10-16] MEDS: methocarbamoL 500 MG TABLET PO SCH ×3 (01:44→12:50)
[2020-10-16] MEDS: D5NS W/20 MEQ KCL 1,000 ML IV SCH ×3 (01:45→12:44)
[2020-10-16] MEDS: HYDROmorphone 0.5 MG/0.5 ML SYRINGE IVP PRN ×6 (01:48→21:06)
[2020-10-16] MEDS: SODIUM CHLORIDE FLUSH 0.9% 10 ML SYRINGE IVP SCH ×8 (01:48→23:35)
[2020-10-16] MEDS: PANTOPRAZOLE 80 MG in SODIUM CHLORIDE 0.9% 100ML 100 ML IV SCH ×3 (03:25→23:35)
[2020-10-16] MEDS: PIPERACILLIN/TAZOBACTAM 3.375 GM in SODIUM CHLORIDE 0.9% MINIBAG 100 ML IV SCH ×4 (03:37→21:47)
[2020-10-16] MEDS: HALOPERIDOL 5 MG/ML VIAL IVP PRN (05:01)
[2020-10-16 05:06] LABS: BASOPHILS % (AUTO) 0.3 %; EOSINOPHILS # (AUTO) 0.1 10^3/uL (0.0-0.7); EOSINOPHILS % (AUTO) 0.7 %; HCT - HEMATOCRIT 37.3 % (42.0-52.0); HGB - HEMOGLOBIN 11.3 g/dL (14.0-18.0); LYMPHOCYTES # (AUTO) 0.5 10^3/uL (1.5-3.5); LYMPHOCYTES % (AUTO) 4.5 %; MEAN CORPUSCULAR HEMOGLOBIN 33.4 pg (27.0-31.0); MEAN CORPUSCULAR HGB CONC 30.3 g/dL (32.0-36.0); MEAN CORPUSCULAR VOLUME 110.4 fL (80.0-94.0); MEAN PLATELET VOLUME 10.7 fL (7.4-11.4); MONOCYTES # (AUTO) 0.4 10^3/uL (0.0-1.0); NEUTROPHILS # (AUTO) 9.7 10^3/uL (1.5-6.6); NEUTROPHILS % (AUTO) 90.1 %; PLT - PLATELET COUNT 166 10^3/uL (130-450); RED BLOOD COUNT 3.38 10^6/uL (4.70-6.10); WHITE BLOOD COUNT 10.7 x10^3/uL (4.8-10.8)
[2020-10-16 05:22] LABS: ALBUMIN 2.9 g/dL (3.2-5.5); ALBUMIN/GLOBULIN RATIO 1.1 (1.0-2.2); BILIRUBIN,TOTAL 1.2 mg/dL (0.2-1.0); CALCIUM 8.8 mg/dL (8.5-10.3); CREATININE 1.5 mg/dL (0.6-1.2); PHOSPHORUS 4.1 mg/dL (2.5-4.6); POTASSIUM 5.3 mmol/L (3.5-5.0); TOTAL PROTEIN 5.5 g/dL (6.7-8.2)
[2020-10-16] MEDS ORDERED: PANTOPRAZOLE 40 MG VIAL IVP SCH (07:00)
[2020-10-16] MEDS: INSULIN ASPART 300 UNIT/3 ML PEN SUBQ SCH ×4 (08:54→21:08)
[2020-10-16] MEDS ORDERED: ENOXAPARIN 40 MG/0.4 ML SYRINGE SUBQ SCH (09:00)
[2020-10-16] MEDS: HEPARIN 5,000 UNIT/ML VIAL SUBQ SCH ×2 (09:58→21:07)
[2020-10-16] MEDS: ACETAMINOPHEN 1,000 MG/100 ML 100 ML IV PRN (10:44)
[2020-10-16] MEDS ORDERED: SODIUM CHLORIDE 0.9% 1,000 ML IV ONE (12:46)
[2020-10-16] MEDS ORDERED: DEXTROSE 5%-0.9% NACL 1,000 ML IV STA (12:47)
[2020-10-16] MEDS ORDERED: SODIUM CHLORIDE 0.9% 500 ML IV ONE (15:30)
[2020-10-16] MEDS ORDERED: SODIUM CHLORIDE 0.9% 1,000 ML IV STA (16:02)
--- NOTE | 2020-10-16 17:52 | XRAY Report ---
PROCEDURE: Chest for Line Placement INDICATIONS: line placement TECHNIQUE: One view of the chest was acquired. COMPARISON: 10/15/2020 FINDINGS: Surgical changes and devices: A left-sided central line is seen. The tip is seen overlying the superi or aspect of the superior vena cava. The tip is pointed laterally. Lungs and pleura: No pneumothorax. Generalized interstitial prominence can be seen. There is bluntin g of the left costophrenic angle. Low lung volumes can be seen, causing a crowded appearance to the l patrick markings. Mediastinum: Mediastinal contours appear normal. Heart size is normal. Bones and chest wall: No suspicious bony lesions. Age-appropriate degenerative changes are seen. Lef t-sided simultaneous gas is seen.. IMPRESSION: The tip of the left-sided central line is seen overlying the superior aspect of the superior vena cav a. The tip is pointed laterally and the tip may be within the azygos system. It is unlikely to be int ra-arterial, although please correlate with intraprocedure findings. If it would be helpful for clini cindy management decision making, please consider a dedicated chest CT for further evaluation. Low lung volumes with interstitial prominence and a likely left-sided pleural effusion. Left-sided soft tissue gas is seen. Reviewed by: Miguel Ángel Rivera MD on 10/16/2020 4:51 PM MÓNICA Approved by: Miguel Ángel Rivera MD on 10/16/2020 4:51 PM MÓNICA Station ID: [id number]
--- NOTE | 2020-10-16 18:06 | OPERATIVE REPORT ---
Operative Report - General Admit Date: 10/15/20 Procedure Date: 10/16/20 Planned Procedure: Preoperative diagnosis: 1. Hypovolemic shock 2. Perforated viscus/peptic ulcer disease 3. Suspicion for sepsis 4. Hematemesis 5. Need for additional IV access Planned procedure: 1. Ultrasound-guided left internal jugular venous access 2. Placement of left internal jugular central venous line by modified Seldinger technique 3. Radiographic confirmation of triple-lumen catheter placement Pre-Op Diagnosis: See above Procedure Performed: Postoperative diagnosis: 1. Hypovolemic shock 2. Perforated viscus/peptic ulcer disease 3. Suspicion for sepsis 4. Hematemesis 5. Need for additional IV access 6. Successful placement of left internal jugular triple-lumen catheter Planned procedure: 1. Ultrasound-guided left internal jugular venous access 2. Placement of left internal jugular central venous line by modified Seldinger technique 3. Radiographic confirmation of triple-lumen catheter placement Post Op Diagnosis: See above - Procedure Note Primary Surgeon: Nate Secondary Surgeon: Michael Anesthesia Provider: Michael Pathology: NONE Estimated Blood Loss (mL): 2 Indications: NONE Findings: See elsewhere and EMR Complications: None - Other Other Information/Narrative: INTRAOPERATIVE FINDINGS: Left internal jugular was noted ultrasonographically. It was passed for the guidewire without any complication, which was confirmed by ultrasound imaging. The catheter ultimately was placed at the junction between the SVC and the atria of the atriocaval junction without any complication as confirmed by postoperative x-ray. Again, postoperative radiography confirmed placement. Patient tolerated the procedure well for which there was no complication. The port flushed easily, it aspirated well across all 3 ports. Preoperative diagnosis: 1. Hypovolemic shock 2. Perforated viscus/peptic ulcer disease 3. Suspicion for sepsis 4. Hematemesis 5. Need for additional IV access Postoperative diagnosis: 1. Hypovolemic shock 2. Perforated viscus/peptic ulcer disease 3. Suspicion for sepsis 4. Hematemesis 5. Need for additional IV access 6. Successful placement of left internal jugular triple-lumen catheter PROCEDURAL REPORT The patient was prepped for left neck and chest in the usual sterile fashion. Time out was called and agreed to by all in the room. Please note secondary to the urgency of the procedure verbal informed consent was obtained and witnessed by nurse attendant in room. The ultrasound probe was draped with a sterile sleeve, and internal jugular was noted. The patient was placed in Trendelenburg, and the vein was cannulated using the introducer needle without any complication. There was venous return. The wire was easily passed through the introducer needle without any complication. The wire placement was confirmed Ultrasonographically. At this time, the wire was secured after the needle was removed. Thereafter, we dilated the tract after having incise the skin to accommodate. This was achieved without any complication. The triple-lumen catheter was already flushed and once the dilator was removed over the wire, the triple-lumen catheter was placed and appropriately positioned anticipating tip at the atriocaval junction. We had easy return of blood x3 ports which flushed without any complication as well. Please note the patient was performed for postoperative x-ray which confirmed placement at the atriocaval junction. The patient tolerated the procedure well for which there was no complication. All counts for sponges, needles, instruments were correct at the conclusion of this operative intervention. Post-op XR was reviewed without any deviation.
--- NOTE | 2020-10-16 18:06 | PROVIDER PROGRESS NOTE ---
Progress Note Subjective Postoperative day #1. Decreased urine output. Some hypotension. Plan to place central venous access. Discussed status with who understands plan. Pre-Op Diagnosis: Peritonitis; pneumoperitoneum; abdominal pain; suspected pancreatic mass Procedure Performed: 1. Diagnostic laparoscopy 2. Abdominal washout, laparoscopic peritoneal lavage 3. Peritoneal sampling, laparoscopic 4. Partial omentectomy, excisional laparoscopic 5. Laparoscopic assisted liver biopsy, Sánchez-Cut 6. Laparoscopic assisted gastric versus pancreatic biopsy, Sánchez-Cut 7. Drain placement laparoscopic assisted 8. Umbilical hernia repair Post Op Diagnosis: Same; Lt hepatic mass; gastric versus pancreatic mass; purulent peritonitis Objective Relative hypotension. No tachycardia. General Appearance: positive: No acute distress Eyes Bilateral: positive: Normal inspection ENT: positive: ENT inspection nml Neck: positive: Nml inspection Respiratory: positive: Chest non-tender, No respiratory distress, Breath sounds nml. negative: Wheezes, Rales, Rhonchi Cardiovascular: positive: Regular rate & rhythm Abdomen: positive: No distention, Other. negative: Guarding, Rebound Extremities: positive: Non-tender, Full ROM, Nml appearance Neurologic/Psychiatric: positive: Oriented x3, CN's nml (2-12) Abdominal Exam: Inspection - Erythema none; Scars trocars well healed Auscultation -normoactive bowel sounds Palpation - Hernias none; Fluctuance none; Induration none; Scar N/A Drains minimal output. SUZANNE x2. Impression/Plan Postoperative day #1 status post diagnostic laparoscopy for peptic ulcer disease/perforated viscus. Concerns for pancreatic versus gastric mass. Likely sepsis secondary to the patient's purulent peritonitis. Plan central access and continued ICU level of care. Aggressive resuscitation and broad-spectrum antibiotics. (1) GI - IVF, strict n.p.o., therapeutic gtt. PPI. Opiate sparring analgesia however avoid nonsteroidals including Toradol. Nutrition consult for likely TPN. (2) SURGERY - maintain drains. Plan CT abdomen pelvis with oral contrast to rule out leak prior to commencement of oral feeding. Will await pathology. Will also need endoscopic evaluation in the subacute postoperative. 4 to 6 weeks. (3) Renal/Lytes - continue IVF. Renal indices within normal limits. Maintain Owens. (4) Respiratory - O2 as necessary. Continue IS. (5) Heme - Will continue with DVT ppx. H/H stable. (6) Cardiovascular - HD acceptable. Patient with rate controlled atrial fibrillation. Will hold amiodarone orally at this time. (7) Neuro - Opiate sparring analgesia. Antispasmodics with Robaxin. Avoid nonsteroidal. Neuropathic agents. Haldol for ICU delirium. (8) Immune/Infectious Disease - broad spectrum antibiotics awaiting operative cultures.
[2020-10-16] MEDS: SODIUM CHLORIDE FLUSH 0.9% 10 ML SYRINGE IVP PRN (18:10)
--- NOTE | 2020-10-16 22:36 | CONSULTATION NOTE ---
Referring Provider Name of Referring Provider:: Dr. Juanito Sullivan Consult Date: 10/16/20 Chief Complaint - Chief Complaint Chief Complaint: Abdominal pain History of Present Illness - Admitted From Admitted From:: Home - History Obtained From Records Reviewed: Yes History obtained from: General Surgeon, Nursing, EMR Exam Limitations: Patient does have dementia and is a poor historian. - History of Present Illness HPI Comment/Other: This is a 89-year-old male with a past medical history significant for atrial fibrillation, dementia who presented early yesterday morning complaining of abdominal pain in the epigastric region. He underwent a CT of the abdomen pelvis in the emergency department which showed free air without a clear etiology. He was taken to the OR by general surgery yesterday morning. He was found to have a perforated gastric/duodenal ulcer with purulent peritonitis. There was also found to be a large gastric versus pancreatic mass. He was admitted to the intensive care unit postoperatively. Today medicine has been consulted at the patient has had decreased urine output and concern is for sepsis. History from the patient is limited due to underlying dementia. He currently reports feeling well. Denies any abdominal pain, nausea, vomiting. Reports no chest pain or dyspnea. He knows he is at the hospital but he cannot remember why exactly. I did ask him regarding goals of care and he states that he would want to be a DNR. We will speak with his tomorrow morning regarding this to confirm before changing his CODE STATUS. History - Past Medical History Cardiovascular: reports: Atrial fibrillation Respiratory: reports: Other Neuro: reports: TIA, Fainting, Other Endocrine/Autoimmune: reports: None GI: reports: None : reports: Benign prostate hypertrophy, Frequency HEENT: reports: None Psych: reports: None Musculoskeletal: reports: Osteoarthritis, Chronic back pain, Other Derm: reports: None MRSA Hx?: No - Past Surgical History General: reports: Appendectomy, Colonoscopy Ortho: reports: Knee replacement HEENT: reports: Tonsil/Adenoidectomy - Family & Social History Family History Comment/Other: Unable to obtain family history due to his underlying dementia. Living arrangement: At home Living Situation: With spouse/s.o. Social History Notes: He reportedly lives at home with his who is his primary caregiver. He denies any smoking or alcohol use. - POLST Patient has POLST: No Meds/Allgy - Home Medications Home Medications: Ambulatory Orders Medication Instructions Recorded Confirmed Aspirin [Aspir 81] 81 mg PO DAILY 12/04/12 10/15/20 Cyanocobalamin (Vitamin B-12) 1,000 mcg PO DAILY 01/25/13 10/15/20 [B-12] Amiodarone HCl 100 mg PO DAILY 12/10/14 10/15/20 - Allergies Allergies/Adverse Reactions: Allergies Allergy/AdvReac Type Severity Reaction Status Date / Time No Known Drug Allergies Allergy Verified 10/15/20 04:11 Review of Systems - Constitutional Constitutional: denies: Fever, Chills - Cardiovascular Cariovascular: denies: Chest pain, Edema, Exertional dyspnea - Respiratory Respiratory: denies: Cough, SOB at rest, SOB with exertion - Gastrointestinal Gastrointestinal: denies: Abdominal pain, Nausea, Vomiting - Musculoskeletal Musculoskeletal: reports: Back pain, Joint pain - All Other Systems All Other Systems: reports: Other (Review of systems is limited due to his underlying dementia.) Exam - Vital Signs Reviewed Vital Signs: Yes Vital Signs: Vital Signs x48h Temp Pulse Resp BP BP Pulse Ox 10/16/20 22:00 86 19 95/50 L 93 10/16/20 21:00 36.9 C 72 14 102/50 L 94 10/16/20 20:00 92 16 113/57 L 94 10/16/20 19:00 84 22 99/57 L 93 10/16/20 18:00 70 13 97/48 L 100/53 L 95 10/16/20 17:20 90 16 121/53 L 96 10/16/20 17:00 88 18 135/77 H 95 10/16/20 16:00 36.5 C 85 22 103/63 93 10/16/20 15:40 98/63 10/16/20 15:20 66 91/53 L 10/16/20 15:00 63 13 90/56 L 96 - Physical Exam General Appearance: positive: No acute distress, Alert Eyes Bilateral: positive: Normal inspection, Conjunctivae nml ENT: positive: ENT inspection nml Neck: positive: Nml inspection Respiratory: positive: No respiratory distress. negative: Wheezes, Rales Cardiovascular: positive: No murmur, Irregularly irregular. negative: Tachycardia, Systolic murmur Abdomen: positive: No distention, Tenderness (Minimal epigastric and right lower quadrant tenderness), Other ([address] negative: Guarding, Rebound Skin: positive: Warm, Dry Extremities: positive: No pedal edema Neurologic/Psychiatric: positive: Disoriented to time, Other (He is moving all 4 extremities.). negative: Disoriented to person, Disoriented to place Conclusion/Plan - Diagnosis Diagnosis: 1) Acute kidney injury. 2) Atrial fibrillation. 3) Perforated viscus. 4) Gastric mass. 5) Dementia - Plan Plan: He does have acute kidney injury with a creatinine of 1.5 and his baseline is 1.2. He is also oliguric. This is likely prerenal injury and with his occas ional hypotensive episodes, there could be a component of ATN. Agree with continuing IV fluids. Continue to monitor his blood pressure with a goal mean arterial pressure greater than 65 mmHg. He is currently normotensive on my evaluation but if he does become hypotensive then he will need vasopressors. Will consider a bolus if he remains oliguric although he has already received multiple liters of IV fluids today and I do not want to fluid overload him. Continue to avoid nephrotoxins. With regards to the atrial fibrillation, he is rate controlled. He is on amiodarone at home which is being held given his n.p.o. status. We can continue to hold this given the long half-life and can consider IV amiodarone if he becomes tachycardic or remains NPO for multiple days. We will need to follow-up the pathology results of this gastric/pancreatic mass and will also discuss goals of care with the patient's tomorrow as the patient currently is a full code but he informed me that he would prefer to be a DNR. He does have underlying dementia and I feel this need to be discussed with his prior to changing his CODE STATUS. We will defer his postoperative management to general surgery. Agree with IV Zosyn for the time being and we will follow up the cultures. - Lab Results Lab results reviewed: Yes Fish Bones: 10/16/20 04:10 10/16/20 04:10 - Diagnostic Imaging Results Diagnostic Imaging Results: positive: Final report reviewed
[2020-10-16] MEDS ORDERED: PIPERACILLIN/TAZOBACTAM 4.5 GM in SODIUM CHLORIDE 0.9% MINIBAG 100 ML IV SCH (23:00)
[2020-10-17] MEDS: LACTATED RINGERS 1,000 ML IV SCH ×2 (00:22→12:15)
[2020-10-17 05:15] LABS: BASOPHILS % (AUTO) 0.3 %; EOSINOPHILS % (AUTO) 0.2 %; HCT - HEMATOCRIT 35.1 % (42.0-52.0); HGB - HEMOGLOBIN 10.8 g/dL (14.0-18.0); LYMPHOCYTES # (AUTO) 0.5 10^3/uL (1.5-3.5); LYMPHOCYTES % (AUTO) 4.3 %; MEAN CORPUSCULAR HEMOGLOBIN 33.9 pg (27.0-31.0); MEAN CORPUSCULAR HGB CONC 30.8 g/dL (32.0-36.0); MEAN PLATELET VOLUME 10.8 fL (7.4-11.4); MONOCYTES # (AUTO) 0.6 10^3/uL (0.0-1.0); MONOCYTES % (AUTO) 4.7 %; NEUTROPHILS # (AUTO) 10.8 10^3/uL (1.5-6.6); NEUTROPHILS % (AUTO) 89.5 %; PLT - PLATELET COUNT 158 10^3/uL (130-450); RED BLOOD COUNT 3.19 10^6/uL (4.70-6.10); RED CELL DISTRIBUTION WIDTH 15.5 % (12.0-15.0)
[2020-10-17] MEDS: HYDROmorphone 0.5 MG/0.5 ML SYRINGE IVP PRN ×3 (05:24→16:53)
[2020-10-17] MEDS: SODIUM CHLORIDE FLUSH 0.9% 10 ML SYRINGE IVP PRN ×3 (05:24→10:18)
[2020-10-17] MEDS: SODIUM CHLORIDE FLUSH 0.9% 10 ML SYRINGE IVP SCH ×6 (05:24→18:18)
[2020-10-17 05:26] LABS: ALBUMIN 2.6 g/dL (3.2-5.5); BILIRUBIN,TOTAL 1.5 mg/dL (0.2-1.0); CALCIUM 9.1 mg/dL (8.5-10.3); CREATININE 1.7 mg/dL (0.6-1.2); MAGNESIUM 1.9 mg/dL (1.7-2.8); PHOSPHORUS 3.9 mg/dL (2.5-4.6); POTASSIUM 5.1 mmol/L (3.5-5.0); TOTAL PROTEIN 5.2 g/dL (6.7-8.2)
[2020-10-17] MEDS: PIPERACILLIN/TAZOBACTAM 3.375 GM in SODIUM CHLORIDE 0.9% MINIBAG 100 ML IV SCH ×3 (05:27→18:18)
--- NOTE | 2020-10-17 09:19 | PROVIDER PROGRESS NOTE ---
Subjective - Prog Note Date Prog Note Date: 10/17/20 Prog Note Time: 09:22 - Subjective Subjective: He is laying in bed quietly. Eyes closed. Monitoring. Shaking his head no. When I wake him up he is startled, completely disoriented. Almost fearful. But cooperative. He tells me that he hurts and indicates that his abdomen hurts. Nursing does not report nausea or vomiting. Dementia has been a problem with behavior. At times he has been taking off IV lines, trying to get out of bed impulsively but that was in the immediate postoperative period he seems to improved a little bit from that today. Current Medications - Current Medications Current Medications: Active Medications Generic Name Dose Route Start Last Admin Trade Name Freq PRN Reason Stop Dose Admin Albuterol 2.5 mg 10/15/20 21:33 Albuterol Neb 2.5 Mg/3 Ml INH Q4HR PRN Wheezing Haloperidol 1 mg 10/15/20 22:11 10/16/20 05:01 Haloperidol 5 Mg/Ml Vial IVP 1 mg Q6H PRN Administration Agitation Heparin Sodium (Porcine) 5,000 unit 10/15/20 21:00 10/16/20 21:07 Heparin 5,000 Unit/Ml Vial SUBQ 5,000 unit Q12H PETRA Administration Hydromorphone HCl 0.5 mg 10/15/20 11:48 10/17/20 05:24 Hydromorphone 0.5 Mg/0.5 Ml Syringe IVP 0.5 mg Q2H PRN Administration Pain 8 to 10 Acetaminophen 100 mls @ 400 mls/hr 10/15/20 11:48 10/16/20 11:18 Ofirmev IV Infused Q6HR PRN Infusion PAIN Pantoprazole Sodium 80 mg/ 100 mls @ 10 mls/hr 10/15/20 17:00 10/16/20 23:35 Sodium Chloride IV 10 mls/hr .Q10H PETRA Administration Piperacillin Sod/Tazobactam 100 mls @ 200 mls/hr 10/17/20 06:00 10/17/20 06:08 Sod 3.375 gm/ Sodium Chloride IV Infused Q6H PETRA Infusion Lactated Ringer's 1,000 mls @ 100 mls/hr 10/17/20 01:00 10/17/20 00:22 Lr IV 10/17/20 20:59 100 mls/hr .Q10H PETRA Administration Insulin Aspart 1 - 5 unit 10/15/20 12:00 10/16/20 21:08 Insulin Aspart 300 Unit/3 Ml Pen SUBQ Not Given 0800,1200,1700,2100 [facility] Protocol Ipratropium [place] 0.5 mg 10/15/20 21:33 Ipratropium 0.2 Mg/Ml Neb INH Q6HR PRN Wheezing Sodium Chloride 10 ml 10/15/20 17:00 10/17/20 05:24 Sodium Chloride Flush 0.9% 10 Ml Syringe IVP 10 ml 0100,0900,1700 PETRA Administration Sodium Chloride 10 ml 10/15/20 11:48 10/17/20 05:24 Sodium Chloride Flush 0.9% 10 Ml Syringe IVP 10 ml PRN PRN Administration NEEDED PER PROVIDER ORDERS Sodium Chloride 10 ml 10/16/20 01:00 10/16/20 23:35 Sodium Chloride Flush 0.9% 10 Ml Syringe IVP 10 ml 0100,0900,1700 PETRA Administration Sodium Chloride 10 ml 10/15/20 21:33 10/17/20 05:24 Sodium Chloride Flush 0.9% 10 Ml Syringe IVP 10 ml PRN PRN Administration NEEDED PER PROVIDER ORDERS Aspirin [Aspir 81] 81 mg PO DAILY 12/04/12 Cyanocobalamin (Vitamin B-12) [B-12] 1,000 mcg PO DAILY 01/25/13 Amiodarone HCl 100 mg PO DAILY 12/10/14 Objective - Vital Signs/Intake & Output Reviewed Vital Signs: Yes Vital Signs: Vital Signs x48h Temp Pulse Resp BP BP Pulse Ox 10/17/20 07:00 73 17 111/55 L 95 10/17/20 06:00 84 21 124/60 120/66 92 10/17/20 05:00 72 12 112/54 L 108/52 L 92 10/17/20 04:00 37.3 C 76 13 116/56 L 94 10/17/20 03:00 77 14 108/54 L 95 10/17/20 02:00 95 22 132/69 H 122/96 H 92 Intake & Output: Intake & Output 10/14/20 10/15/20 10/16/20 10/17/20 23:59 23:59 23:59 23:59 Intake Total 2839.542 9975.216 775 Output Total 415 848 243 Balance 6151.126 1471.216 532 - Objective General Appearance: positive: No acute distress, Other (sleeping but wakes w my touch and voice) Eyes Bilateral: positive: PERRL, EOMI ENT: positive: Dry mucous membranes Neck: positive: No JVD. negative: Stiff neck Respiratory: positive: No respiratory distress, Rhonchi (faint and sonorous, clear when I ask him to cough). negative: Rales Cardiovascular: positive: Irregularly irregular, Systolic murmur. negative: Gallop/S4, Friction rub Abdomen: positive: Tenderness (diffuse, but no guarding or rebound), Other (hypoactive bowel sounds, firm wall. he guards and doesn't want me to examine from fear but I don't think it's brittney guarding. vega in place.). negative: Rebound Skin: positive: Warm, Diaphoresis, Pallor Extremities: positive: Full ROM (he reaches for lines, bed rail, sheets), Pedal edema Neurologic/Psychiatric: positive: CN's nml (2-12), Motor nml, Disoriented to place (needs constant prompting.), Disoriented to time - Lab Results Fish Bones: 10/17/20 04:25 10/17/20 04:25 Other Labs: Lab Results x24hrs 10/17/20 10/17/20 10/16/20 Range/Units 04:25 04:25 15:44 WBC 12.0 H (4.8-10.8) x10^3/uL RBC 3.19 L (4.70-6.10) 10^6/uL Hgb 10.8 L (14.0-18.0) g/dL Hct 35.1 L (42.0-52.0) % MCV 110.0 H (80.0-94.0) fL MCH 33.9 H (27.0-31.0) pg MCHC 30.8 L (32.0-36.0) g/dL RDW 15.5 H (12.0-15.0) % Plt Count 158 (130-450) 10^3/uL MPV 10.8 (7.4-11.4) fL Neut # (Auto) 10.8 H (1.5-6.6) 10^3/uL Lymph # (Auto) 0.5 L (1.5-3.5) 10^3/uL [place] # (Auto) 0.6 (0.0-1.0) 10^3/uL Eos # (Auto) 0.0 (0.0-0.7) 10^3/uL Baso # (Auto) 0.0 (0.0-0.1) 10^3/uL Absolute Nucleated RBC 0.00 x10^3/uL Nucleated RBC % 0.0 /100WBC Sodium 142 (135-145) mmol/L Potassium 5.1 H (3.5-5.0) mmol/L Chloride 114 H (101-111) mmol/L Carbon Dioxide 22 (21-32) mmol/L Anion Gap 6.0 (6-13) BUN 54 H (6-20) mg/dL Creatinine 1.7 H (0.6-1.2) mg/dL Estimated GFR (MDRD) 38 L (>89) Glucose 98 (70-100) mg/dL Calcium 9.1 (8.5-10.3) mg/dL Phosphorus 3.9 (2.5-4.6) mg/dL Magnesium 1.9 (1.7-2.8) mg/dL Total Bilirubin 1.5 H (0.2-1.0) mg/dL AST 18 (10-42) IU/L ALT 15 (10-60) IU/L Alkaline Phosphatase 68 (42-121) IU/L Troponin I High Sens 32.0 H* (2.3-19.7) ng/L Total Protein 5.2 L (6.7-8.2) g/dL Albumin 2.6 L (3.2-5.5) g/dL Globulin 2.6 (2.1-4.2) g/dL Albumin/Globulin Ratio 1.0 (1.0-2.2) Assessment/Plan - Problem List (1) BIGG (acute kidney injury) Impression: Due to postoperative hypotension that was episodic. He has not required pressors. From approximately 1400 in the afternoon to 1900 he was 90 systolic. By the late evening he was 102-113 systolic. Still dropped a little bit last night around 10:00 at night. But has been much better since that time. His systolic is been between 106-132. Urine output remains low. He put out 848 cc yesterday and had 4298 in. So far this morning he is put out 243 cc. Creatinine continues to rise slightly. 1.5 is written to 1.7. This is not unexpected in the face of hypotension. His renal function may slightly worsen until it starts getting better. Slight rise in potassium. No intervention needed yet for that. Troponins were evaluated yesterday and they were 32. Plan: Continue to monitor blood pressure which most likely is the cause of early ATN. Blood pressure seems to stabilized with fluid bolus. No pressors needed. Repeat troponin for today (2) Hypotension Impression: this is an elderly man who had acute surgery, is demented, and is fragile. So far no signs of bleeding, or infection. Slowly recovering. Will continue to monitor carefullly. Qualifiers: Hypotension type: postprocedural hypotension Qualified Code(s): I95.81 - Postprocedural hypotension (3) Dementia Impression: he had delirium in the post op setting. Seems to have quieted down today. nursing will continue to monitor need for restraints or antipsychotics. Qualifiers: Dementia behavioral disturbance: with behavioral disturbance (4) Perforated abdominal viscus Impression: Status post diagnostic lap, omentectomy, liver biopsy, pancreatic biopsy, umbilical hernia repair. A hepatic mass, gastric versus pancreatic mass and purulent peritonitis was found. POD #2 General surgery is primary service and we are following.. 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 Biopsy results are pending. 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 Plan: Await results. Will find out who power of county attorney is and see if they have already discussed this with general surgery or do we need to discuss this with him.
[2020-10-17] MEDS: ACETAMINOPHEN 1,000 MG/100 ML 100 ML IV PRN (09:45)
[2020-10-17] MEDS: PANTOPRAZOLE 80 MG in SODIUM CHLORIDE 0.9% 100ML 100 ML IV SCH ×2 (09:46→20:53)
[2020-10-17] MEDS: HALOPERIDOL 5 MG/ML VIAL IVP PRN (10:07)
[2020-10-17] MEDS: INSULIN ASPART 300 UNIT/3 ML PEN SUBQ SCH (10:18)
[2020-10-17] MEDS: HEPARIN 5,000 UNIT/ML VIAL SUBQ SCH ×2 (10:20→21:51)
[2020-10-17] MEDS: INSULIN REGULAR HUMAN 300 UNIT/3 ML VIAL SUBQ SCH ×2 (12:00→18:11)
[2020-10-18] MEDS: INSULIN REGULAR HUMAN 300 UNIT/3 ML VIAL SUBQ SCH ×4 (00:01→19:03)
[2020-10-18] MEDS: HYDROmorphone 0.5 MG/0.5 ML SYRINGE IVP PRN (00:02)
[2020-10-18] MEDS: PIPERACILLIN/TAZOBACTAM 3.375 GM in SODIUM CHLORIDE 0.9% MINIBAG 100 ML IV SCH ×5 (00:02→23:53)
[2020-10-18] MEDS: HALOPERIDOL 5 MG/ML VIAL IVP PRN ×2 (00:56→20:24)
[2020-10-18] MEDS: DEXTROSE 5%-0.45% NACL 1,000 ML IV SCH ×2 (01:02→12:59)
[2020-10-18] MEDS: SODIUM CHLORIDE FLUSH 0.9% 10 ML SYRINGE IVP SCH ×6 (01:03→23:56)
[2020-10-18] MEDS: ACETAMINOPHEN 1,000 MG/100 ML 100 ML IV PRN ×3 (04:43→22:32)
[2020-10-18 06:14] LABS: BASOPHILS % (AUTO) 0.2 %; EOSINOPHILS # (AUTO) 0.1 10^3/uL (0.0-0.7); EOSINOPHILS % (AUTO) 0.4 %; HCT - HEMATOCRIT 35.4 % (42.0-52.0); LYMPHOCYTES # (AUTO) 0.6 10^3/uL (1.5-3.5); LYMPHOCYTES % (AUTO) 4.6 %; MEAN CORPUSCULAR HEMOGLOBIN 33.7 pg (27.0-31.0); MEAN CORPUSCULAR HGB CONC 31.1 g/dL (32.0-36.0); MEAN CORPUSCULAR VOLUME 108.6 fL (80.0-94.0); MEAN PLATELET VOLUME 11.3 fL (7.4-11.4); MONOCYTES # (AUTO) 0.6 10^3/uL (0.0-1.0); MONOCYTES % (AUTO) 4.9 %; NEUTROPHILS # (AUTO) 10.8 10^3/uL (1.5-6.6); NEUTROPHILS % (AUTO) 89.2 %; PLT - PLATELET COUNT 167 10^3/uL (130-450); RED BLOOD COUNT 3.26 10^6/uL (4.70-6.10); RED CELL DISTRIBUTION WIDTH 15.4 % (12.0-15.0); WHITE BLOOD COUNT 12.1 x10^3/uL (4.8-10.8)
[2020-10-18 06:33] LABS: ALBUMIN 2.4 g/dL (3.2-5.5); ALBUMIN/GLOBULIN RATIO 0.9 (1.0-2.2); BILIRUBIN,TOTAL 1.4 mg/dL (0.2-1.0); CALCIUM 9.3 mg/dL (8.5-10.3); CREATININE 1.6 mg/dL (0.6-1.2); MAGNESIUM 1.9 mg/dL (1.7-2.8); PHOSPHORUS 3.4 mg/dL (2.5-4.6); POTASSIUM 4.4 mmol/L (3.5-5.0); TOTAL PROTEIN 5.2 g/dL (6.7-8.2)
[2020-10-18] MEDS: PANTOPRAZOLE 80 MG in SODIUM CHLORIDE 0.9% 100ML 100 ML IV SCH ×2 (08:15→19:03)
[2020-10-18] MEDS: HEPARIN 5,000 UNIT/ML VIAL SUBQ SCH ×2 (08:19→20:26)
--- NOTE | 2020-10-18 12:01 | PROVIDER PROGRESS NOTE ---
Progress Note October 18, 2020 11:46 AM His dementia with behavioral disturbance is stable. In the immediate postop period he was quite agitated and hypotensive. But he is gradually stabilized his blood pressure, and he is now hypertensive and consistently in the 160s. He is n.p.o. He has bowel sounds. Nursing was not aware they could give him his medications by mouth. So we discussed that this morning. The patient himself is asleep. Awakens easily. Not oriented to place or time. Cooperative. Quiet affect. He tells me that nothing is wrong. He denies pain, shortness of breath. But because of his dementia I do not know how quite far to take his lack of complaints. He appears comfortable. Medications are over move, albuterol, D5 0.45 was started last night by surgeon for Accu-Chek of 72. Haldol, heparin DVT prophylaxis, Dilaudid as needed, sliding scale insulin, Atrovent, pantoprazole IV, Zosyn IV. Temperature is 36.9. Blood pressure 172/89. Pulse 82. Respirations 18. 100% saturated on 2 L nasal cannula. He has been on 2 L since yesterday. Unclear why when his O2 sats were 100% or 96%. Intake and output: October 15October 16October 17 He is a sleepy, but easily awakens elderly man. No acute distress. Yesterday he was mumbling in his sleep, shaking his head no, running in place with what it look like restless leg syndrome. Today he is much quieter. Forehead has the sheen of diaphoresis but I think it is just oil. He is not diaphoretic. Oral mucosa is not dry Neck is supple Lungs are clear with slow shallow unlabored respiration. Crackles at the bases. He then gets a sudden coughing spasm and aeration improves. Crackles momentarily disappear. Irregular rate and rhythm with soft systolic ejection murmur Abdomen with hypoactive bowel sounds. Generalized tenderness. He grimaces a little but no rebound or guarding. He has SUZANNE drain. Is difficult to say if he has flatus because of his dementia. But there has been no BM. Owens catheter is draining dark natividad urine. Legs have a chronic venous stasis change. They are red, edematous. No open lesions. Sodium 143, potassium 4.4, chloride 114. Carbon dioxide 20. Some element of acidosis here. BUN 55, creatinine 1.6. Random glucose 113. Total bili 1.4. White cell count 12.1, hemoglobin 11, hematocrit 35.4. White cell count was elevated yesterday as well. He has been steadily rising and that September 2017 was 6.8, October 16>>10.7, October 17>> 12.0. Assessment/plan: 1. Leukocytosis in a postoperative patient with slight cough, slight crackles and slight elevated white cell count 2. Acute kidney injury due to hypotension, stable 3. Postoperative hypotension resolved 4. Hypertension. In the postoperative setting he is not on medications 5. Chronic atrial fibrillation, rate is controlled 6. 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 Generalized weakness in a patient who is elderly, sedentary, and has just undergone an abdominal surgery. Plan Check x-ray Continue to monitor BUN and creatinine Consider adding low-dose antihypertensive Resume amiodarone p.o. General surgery is attending of record and we are following as a regulatory services consultant Awaiting pathology of the mass. That will determine the next steps. I have asked nursing to please get him up and see what his gait and strength are like. I may need to order physical therapy and assess him for home health PT versus intermediate facility rehab depending on what his would like
--- NOTE | 2020-10-18 12:50 | PROVIDER PROGRESS NOTE ---
Progress Note Subjective Postoperative day #2. Overall significantly improved. Pre-Op Diagnosis: Peritonitis; pneumoperitoneum; abdominal pain; suspected pancreatic mass Procedure Performed: 1. Diagnostic laparoscopy 2. Abdominal washout, laparoscopic peritoneal lavage 3. Peritoneal sampling, laparoscopic 4. Partial omentectomy, excisional laparoscopic 5. Laparoscopic assisted liver biopsy, Sánchez-Cut 6. Laparoscopic assisted gastric versus pancreatic biopsy, Sánchez-Cut 7. Drain placement laparoscopic assisted 8. Umbilical hernia repair Post Op Diagnosis: Same; Lt hepatic mass; gastric versus pancreatic mass; purulent peritonitis Objective Relative hypotension. No tachycardia. General Appearance: positive: No acute distress Eyes Bilateral: positive: Normal inspection ENT: positive: ENT inspection nml Neck: positive: Nml inspection Respiratory: positive: Chest non-tender, No respiratory distress, Breath sounds nml. negative: Wheezes, Rales, Rhonchi Cardiovascular: positive: Regular rate & rhythm Abdomen: positive: No distention, Other. negative: Guarding, Rebound Extremities: positive: Non-tender, Full ROM, Nml appearance Neurologic/Psychiatric: positive: Oriented x3, CN's nml (2-12) Abdominal Exam: Inspection - Erythema none; Scars trocars well healed Auscultation -normoactive bowel sounds Palpation - Hernias none; Fluctuance none; Induration none; Scar N/A Drains minimal output. SUZANNE x2. Impression/Plan Postoperative day #2 status post diagnostic laparoscopy for peptic ulcer disease/perforated viscus. Concerns for pancreatic versus gastric mass. Likely sepsis, however shock resolved secondary to aggressive resusitation and broadened abd regimen, history of purulent peritonitis. Plan central access and continued ICU level of care. Aggressive resuscitation and broad-spectrum antibiotics. (1) GI - IVF, strict n.p.o., therapeutic gtt. PPI. Opiate sparring analgesia however avoid nonsteroidals including Toradol. Nutrition consult for likely TPN. (2) SURGERY - maintain drains. Plan CT abdomen pelvis with oral contrast to rule out leak prior to commencement of oral feeding. Will await pathology. Will also need endoscopic evaluation in the subacute postoperative. 4 to 6 weeks. (3) Renal/Lytes - continue IVF. Renal indices within normal limits. Maintain Owens. (4) Respiratory - O2 as necessary. Continue IS. (5) Heme - Will continue with DVT ppx. H/H stable. (6) Cardiovascular - HD acceptable. Patient with rate controlled atrial fibrillation. Will hold amiodarone orally at this time. (7) Neuro - Opiate sparring analgesia. Antispasmodics with Robaxin. Avoid nonsteroidal. Neuropathic agents. Haldol for ICU delirium. (8) Immune/Infectious Disease - broad spectrum antibiotics awaiting operative cultures.
--- NOTE | 2020-10-18 13:04 | PROVIDER PROGRESS NOTE ---
Progress Note Procedure performed: 1. Ultrasound guided attempted right and successful left radial arterial access 2. Left radial arterial line placement for hemodynamic monitoring INTRAOPERATIVE FINDINGS: Left hand confirmed for Layo test with no concern for compromised arch. Left ulnar artery noted for pulsatile flow by Doppler on ultrasonography. Confirmed left radial artery by ultrasound with pulsatile flow noted on arterial access with appropriate waveform once line completed. Good capillary return and no compromise to left hand at the conclusion of procedure. Preoperative diagnosis: 1. Hypovolemic shock 2. Perforated viscous 3. Suspicion for sepsis 4. Need for additional Hemodynamic monitoring. Postoperative diagnosis: 1. Hypovolemic shock 2. Perforated viscous 3. Suspicion for sepsis 4. Need for additional Hemodynamic monitoring. 5. Successful placement of Left arterial line, radial artery. PROCEDURAL REPORT The patient was prepped for Left hand and arm. Layo's test performed see above for results.. Time out was called and agreed to by all in the room. Please note secondary to the urgency of the procedure verbal informed consent was obtained and witnessed by nurse attendant in room. The ultrasound probe was draped with a sterile sleeve. Pulsatile structures were noted for both radial and ulnar arteries, and we had already confirmed patency of a palmar arch with completion of the Layo's test. We proceeded to access the left radial artery using ultrasound guidance with positive arterial blood return. The catheter was easily placed over the wire by modified Seldinger technique. Appropriate arterial waveform was appreciated with no complication. Patient had good cap refill with no complication to the left hand at the conclusion of this procedure.Right hand was also without any concerning findings after attempted initial access. The patient tolerated the procedure well for which there was no complication. All counts for sponges, needles, instruments were correct at the conclusion of this operative intervention.
--- NOTE | 2020-10-18 17:55 | XRAY Report ---
PROCEDURE: Chest 1 View X-Ray INDICATIONS: cough, crackles, wbc, post op TECHNIQUE: One view of the chest was acquired. COMPARISON: 10/16/2020, 10/07/2020 FINDINGS: Surgical changes and devices: There is a stable left-sided central line. Lungs and pleura: Generalized interstitial prominence is seen, which is slightly improved compared to 10/16/2020. There is a small left-sided pleural effusion. Mediastinum: Mediastinal contours appear normal. Heart size is normal. Bones and chest wall: No suspicious bony lesions. Age-appropriate degenerative changes are seen. T here is a mild amount of left-sided soft tissue gas, which is improved compared to the prior. IMPRESSION: Decreased interstitial prominence compared to the prior chest radiograph. Small left-sided pleural effusion Decreased left-sided soft tissue gas. Reviewed by: Miguel Ángel Rivera MD on 10/18/2020 4:54 PM MÓNICA Approved by: Miguel Ángel Rivera MD on 10/18/2020 4:54 PM AKAARON Station ID: [id number]
[2020-10-18] MEDS ORDERED: HALOPERIDOL 5 MG/ML VIAL IVP ONE (23:45)
[2020-10-19] MEDS: INSULIN REGULAR HUMAN 300 UNIT/3 ML VIAL SUBQ SCH ×5 (00:05→23:47)
[2020-10-19] MEDS: SODIUM CHLORIDE FLUSH 0.9% 10 ML SYRINGE IVP SCH ×5 (00:07→17:16)
[2020-10-19] MEDS: DEXTROSE 5%-0.45% NACL 1,000 ML IV SCH ×3 (01:45→23:54)
[2020-10-19] MEDS: HYDROmorphone 0.5 MG/0.5 ML SYRINGE IVP PRN (03:06)
[2020-10-19] MEDS: HALOPERIDOL 5 MG/ML VIAL IVP PRN ×2 (04:11→17:33)
[2020-10-19 04:49] LABS: BASOPHILS % (AUTO) 0.3 %; EOSINOPHILS # (AUTO) 0.1 10^3/uL (0.0-0.7); EOSINOPHILS % (AUTO) 0.7 %; HCT - HEMATOCRIT 36.1 % (42.0-52.0); HGB - HEMOGLOBIN 11.6 g/dL (14.0-18.0); LYMPHOCYTES # (AUTO) 0.6 10^3/uL (1.5-3.5); LYMPHOCYTES % (AUTO) 5.1 %; MEAN CORPUSCULAR HEMOGLOBIN 34.6 pg (27.0-31.0); MEAN CORPUSCULAR HGB CONC 32.1 g/dL (32.0-36.0); MEAN CORPUSCULAR VOLUME 107.8 fL (80.0-94.0); MEAN PLATELET VOLUME 9.8 fL (7.4-11.4); MONOCYTES # (AUTO) 0.8 10^3/uL (0.0-1.0); MONOCYTES % (AUTO) 6.8 %; NEUTROPHILS # (AUTO) 10.4 10^3/uL (1.5-6.6); NEUTROPHILS % (AUTO) 86.6 %; PLT - PLATELET COUNT 165 10^3/uL (130-450); RED BLOOD COUNT 3.35 10^6/uL (4.70-6.10); RED CELL DISTRIBUTION WIDTH 15.2 % (12.0-15.0)
[2020-10-19 05:02] LABS: ALBUMIN 2.6 g/dL (3.2-5.5); ALBUMIN/GLOBULIN RATIO 0.9 (1.0-2.2); BILIRUBIN,TOTAL 1.5 mg/dL (0.2-1.0); CALCIUM 9.5 mg/dL (8.5-10.3); CREATININE 1.5 mg/dL (0.6-1.2); PHOSPHORUS 2.8 mg/dL (2.5-4.6); TOTAL PROTEIN 5.5 g/dL (6.7-8.2)
[2020-10-19] MEDS: PANTOPRAZOLE 80 MG in SODIUM CHLORIDE 0.9% 100ML 100 ML IV SCH ×3 (06:08→23:54)
[2020-10-19] MEDS: PIPERACILLIN/TAZOBACTAM 3.375 GM in SODIUM CHLORIDE 0.9% MINIBAG 100 ML IV SCH ×4 (06:08→23:47)
--- NOTE | 2020-10-19 07:40 | PROVIDER PROGRESS NOTE ---
Assessment/Plan - Problem List (1) Leukocytosis Assessment/Plan: WBC today is 12. There is no change from the previous day. Chest x-ray done 10/18/20 showed decreased interstitial prominence compared to chest x-ray of 10/16/20 Patient is on Zosyn 3.375 g IV q6hrs. Will continue (2) Chronic atrial fibrillation Assessment/Plan: Rate controlled. Patient's amiodarone p.o. is currently held per general surgery instructions for strict n.p.o. This is for planned GI follow-up to ensure that there are no leaks. If needed will order metoprolol IV for rate control. (3) Generalized weakness Assessment/Plan: Physical therapy to evaluate and treat patient. 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 Patient is receiving normal saline at 100 mL/h. We will continue to monitor (6) Perforated abdominal viscus Assessment/Plan: Status post surgery. Postop day #3. General surgery is the primary attending. TPN to be initiated tonight. - Current Meds Current Meds: Current Medications Generic Name Dose Route Start Last Admin Trade Name Freq PRN Reason Stop Dose Admin Haloperidol 1 mg 10/18/20 23:46 10/19/20 04:11 Haloperidol 5 Mg/Ml Vial IVP 1 mg Q4H PRN Administration Agitation Heparin Sodium (Porcine) 5,000 unit 10/15/20 21:00 10/18/20 20:26 Heparin 5,000 Unit/Ml Vial SUBQ 5,000 unit Q12H PETRA Administration Hydromorphone HCl 0.5 mg 10/15/20 11:48 10/19/20 03:06 Hydromorphone 0.5 Mg/0.5 Ml Syringe IVP 0.5 mg Q2H PRN Administration Pain 8 to 10 Acetaminophen 100 mls @ 400 mls/hr 10/15/20 11:48 10/18/20 23:08 Ofirmev IV Infused Q6HR PRN Infusion PAIN Pantoprazole Sodium 80 mg/ 100 mls @ 10 mls/hr 10/15/20 17:00 10/19/20 06:08 Sodium Chloride IV 10 mls/hr .Q10H PETRA Administration Piperacillin Sod/Tazobactam 100 mls @ 200 mls/hr 10/17/20 06:00 10/19/20 07:23 Sod 3.375 gm/ Sodium Chloride IV Infused Q6H PETRA Infusion Dextrose/Sodium Chloride 1,000 mls @ 100 mls/hr 10/18/20 01:00 10/19/20 01:45 D5.45ns IV 100 mls/hr .Q10H PETRA Administration Insulin Human Regular 1 - 5 unit 10/17/20 12:00 10/19/20 06:08 Insulin Regular Human 300 Unit/3 Ml Vial SUBQ Not Given Q6HR [facility] Protocol Sodium Chloride 10 ml 10/15/20 17:00 10/19/20 00:07 Sodium Chloride Flush 0.9% 10 Ml Syringe IVP 10 ml 0100,0900,1700 PETRA Administration Sodium Chloride 10 ml 10/15/20 11:48 10/17/20 10:18 Sodium Chloride Flush 0.9% 10 Ml Syringe IVP 10 ml PRN PRN Administration NEEDED PER PROVIDER ORDERS Sodium Chloride 10 ml 10/16/20 01:00 10/18/20 23:56 Sodium Chloride Flush 0.9% 10 Ml Syringe IVP 10 ml 0100,0900,1700 PETRA Administration Sodium Chloride 10 ml 10/15/20 21:33 10/17/20 05:24 Sodium Chloride Flush 0.9% 10 Ml Syringe IVP 10 ml PRN PRN Administration NEEDED PER PROVIDER ORDERS - Lab Result Fish Bone Diagrams: 10/19/20 04:40 10/19/20 04:40 Subjective - Subjective Patient Reports: Other (Patient resting comfortably in bed. Readily arousable to verbal stimuli. Denies pain, difficulty in breathing, fever or chills. It appears he occasionally hallucinates. Refers to a cat on his bed.) Objective Vital Signs: Vital Signs - 24 hr 10/18/20 10/18/20 10/18/20 08:00 09:00 10:00 Temperature 36.8 C Heart Rate [ 81 82 74 Monitoring electrodes] Respiratory 24 22 20 Rate Blood Pressure [Left Brachial artery] Blood Pressure 167/87 H 165/75 H 178/90 H [Left Radial artery] Blood Pressure 156/81 H 167/79 H 156/82 H [Right Brachial artery] O2 Saturation 100 99 10/18/20 10/18/20 10/18/20 11:00 11:42 12:00 Temperature 36.9 C Heart Rate [ 82 82 Monitoring electrodes] Respiratory 18 22 Rate Blood Pressure [Left Brachial artery] Blood Pressure 172/89 H 176/87 H [Left Radial artery] Blood Pressure 174/101 H 169/108 H [Right Brachial artery] O2 Saturation 100 96 10/18/20 10/18/20 10/18/20 13:00 14:00 15:00 Temperature Heart Rate [ 76 78 70 Monitoring electrodes] Respiratory 20 20 20 Rate Blood Pressure [Left Brachial artery] Blood Pressure 172/84 H 171/90 H [Left Radial artery] Blood Pressure 159/80 H 161/97 H 149/74 H [Right Brachial artery] O2 Saturation 94 95 10/18/20 10/18/20 10/18/20 15:49 16:00 17:00 Temperature 37 C 37 C Heart Rate [ 80 89 Monitoring electrodes] Respiratory 27 H 21 Rate Blood Pressure [Left Brachial artery] Blood Pressure [Left Radial artery] Blood Pressure 169/92 H 166/98 H [Right Brachial artery] O2 Saturation 97 91 L 10/18/20 10/18/20 10/18/20 18:00 19:00 19:30 Temperature 37 C Heart Rate [ 80 85 Monitoring electrodes] Respiratory 27 H 24 Rate Blood Pressure [Left Brachial artery] Blood Pressure [Left Radial artery] Blood Pressure 144/80 H 142/80 H [Right Brachial artery] O2 Saturation 10/18/20 10/18/20 10/18/20 20:00 21:00 22:00 Temperature Heart Rate [ 79 84 87 Monitoring electrodes] Respiratory 21 23 25 H Rate Blood Pressure [Left Brachial artery] Blood Pressure [Left Radial artery] Blood Pressure 157/79 H 175/89 H 172/87 H [Right Brachial artery] O2 Saturation 95 10/18/20 10/19/20 10/19/20 23:00 00:00 01:15 Temperature 36.8 C Heart Rate [ 99 81 89 Monitoring electrodes] Respiratory 28 H 17 25 H Rate Blood Pressure [Left Brachial artery] Blood Pressure [Left Radial artery] Blood Pressure 183/96 H 156/69 H 179/96 H [Right Brachial artery] O2 Saturation 93 94 93 10/19/20 10/19/20 10/19/20 02:00 03:00 04:19 Temperature 36.8 C Heart Rate [ 85 80 101 H Monitoring electrodes] Respiratory 24 25 H 27 H Rate Blood Pressure [Left Brachial artery] Blood Pressure [Left Radial artery] Blood Pressure 180/88 H 164/95 H 182/95 H [Right Brachial artery] O2 Saturation 92 94 10/19/20 10/19/20 10/19/20 05:12 06:00 07:00 Temperature Heart Rate [ 92 87 75 Monitoring electrodes] Respiratory 24 22 17 Rate Blood Pressure 175/98 H [Left Brachial artery] Blood Pressure [Left Radial artery] Blood Pressure 186/100 H 146/81 H [Right Brachial artery] O2 Saturation 92 96 98 Oxygen O2 Source [With Activity] Room air O2 Source [Without Activity] Room air O2 Source Nasal cannula I&O (Last 24 Hrs): Intake and Output Totals x24h 10/17/20 10/18/20 10/19/20 23:59 23:59 23:59 Intake Total 2275 3900 300 Output Total 796 1982 812 Balance 1479 1918 -512 General: Alert, Other (Oriented to self and occasionally place but not to reason.) HEENT: PERRLA, EOMI Neck: Supple, No JVD Neuro: Non Focal Cardiovascular: Regular rate Respiratory: Chest non-tender, No respiratory distress, Other (Coarse breath sounds) Abdomen: Soft, Other (Decreased bowel sounds. Tenderness to palpation) Extremities: No clubbing, No cyanosis, No edema Skin: No rashes - Results Results: Laboratory Results WBC 12.0 x10^3/uL (4.8-10.8) H 10/19/20 04:40 RBC 3.35 10^6/uL (4.70-6.10) L 10/19/20 04:40 Hgb 11.6 g/dL (14.0-18.0) L 10/19/20 04:40 Hct 36.1 % (42.0-52.0) L 10/19/20 04:40 MCV 107.8 fL (80.0-94.0) H 10/19/20 04:40 MCH 34.6 pg (27.0-31.0) H 10/19/20 04:40 MCHC 32.1 g/dL (32.0-36.0) 10/19/20 04:40 RDW 15.2 % (12.0-15.0) H 10/19/20 04:40 Plt Count 165 10^3/uL (130-450) 10/19/20 04:40 MPV 9.8 fL (7.4-11.4) 10/19/20 04:40 Neut # (Auto) 10.4 10^3/uL (1.5-6.6) H 10/19/20 04:40 Lymph # (Auto) 0.6 10^3/uL (1.5-3.5) L 10/19/20 04:40 [place] # (Auto) 0.8 10^3/uL (0.0-1.0) 10/19/20 04:40 Eos # (Auto) 0.1 10^3/uL (0.0-0.7) 10/19/20 04:40 Baso # (Auto) 0.0 10^3/uL (0.0-0.1) 10/19/20 04:40 Absolute Nucleated RBC 0.00 x10^3/uL 10/19/20 04:40 Nucleated RBC % 0.0 /100WBC 10/19/20 04:40 PT 13.7 secs (9.9-12.6) H 10/15/20 04:45 INR 1.2 (0.8-1.2) 10/15/20 04:45 Sodium 145 mmol/L (135-145) 10/19/20 04:40 Potassium 4.0 mmol/L (3.5-5.0) 10/19/20 04:40 Chloride 114 mmol/L (101-111) H 10/19/20 04:40 Carbon Dioxide 21 mmol/L (21-32) 10/19/20 04:40 Anion Gap 10.0 (6-13) 10/19/20 04:40 BUN 49 mg/dL (6-20) H 10/19/20 04:40 Creatinine 1.5 mg/dL (0.6-1.2) H 10/19/20 04:40 Estimated GFR (MDRD) 44 (>89) L 10/19/20 04:40 Glucose 139 mg/dL (70-100) H 10/19/20 04:40 Calcium 9.5 mg/dL (8.5-10.3) 10/19/20 04:40 Phosphorus 2.8 mg/dL (2.5-4.6) 10/19/20 04:40 Magnesium 2.0 mg/dL (1.7-2.8) 10/19/20 04:40 Total Bilirubin 1.5 mg/dL (0.2-1.0) H 10/19/20 04:40 AST 16 IU/L (10-42) 10/19/20 04:40 ALT 13 IU/L (10-60) 10/19/20 04:40 Alkaline Phosphatase 102 IU/L (42-121) 10/19/20 04:40 Troponin I High Sens 32.0 ng/L (2.3-19.7) H* 10/16/20 15:44 Total Protein 5.5 g/dL (6.7-8.2) L 10/19/20 04:40 Albumin 2.6 g/dL (3.2-5.5) L 10/19/20 04:40 Globulin 2.9 g/dL (2.1-4.2) 10/19/20 04:40 Albumin/Globulin Ratio 0.9 (1.0-2.2) L 10/19/20 04:40 Lipase 71 U/L (22-51) H 10/15/20 04:45 Urine Color YELLOW 10/15/20 06:25 Urine Clarity CLEAR (CLEAR) 10/15/20 06:25 Urine pH 5.5 PH (5.0-7.5) 10/15/20 06:25 Ur Specific [place] 1.020 (1.002-1.030) 10/15/20 06:25 Urine Protein NEGATIVE mg/dL (NEGATIVE) 10/15/20 06:25 Urine Glucose (UA) NEGATIVE mg/dL (NEGATIVE) 10/15/20 06:25 Urine Ketones NEGATIVE mg/dL (NEGATIVE) 10/15/20 06:25 Urine Occult Blood NEGATIVE (NEGATIVE) 10/15/20 06:25 Urine Nitrite NEGATIVE (NEGATIVE) 10/15/20 06:25 Urine Bilirubin NEGATIVE (NEGATIVE) 10/15/20 06:25 Urine Urobilinogen 0.2 (NORMAL) E.U./dL (NORMAL) 10/15/20 06:25 Ur Leukocyte Esterase NEGATIVE (NEGATIVE) 10/15/20 06:25 Ur Microscopic Review NOT INDICATED 10/15/20 06:25 Urine Culture Comments NOT INDICATED 10/15/20 06:25 Nasal Adenovirus (PCR) NOT DETECTED 10/15/20 11:35 Nasal B. parapertussis DNA (PCR) NOT DETECTED 10/15/20 11:35 Nasal Coronavir 229E PCR NOT DETECTED 10/15/20 11:35 Nasal Coronavir HKU1 PCR NOT DETECTED 10/15/20 11:35 Nasal Coronavir NL63 PCR NOT DETECTED 10/15/20 11:35 Nasal Coronavir OC43 PCR NOT DETECTED 10/15/20 11:35 Nasal Enterovir/Rhinovir PCR NOT DETECTED 10/15/20 11:35 Nasal Influenza B PCR NOT DETECTED 10/15/20 11:35 Nasal Influenza A PCR NOT DETECTED 10/15/20 11:35 Nasal Parainfluen 1 PCR NOT DETECTED 10/15/20 11:35 Nasal Parainfluen 2 PCR NOT DETECTED 10/15/20 11:35 Nasal Parainfluen 3 PCR NOT DETECTED 10/15/20 11:35 Nasal Parainfluen 4 PCR NOT DETECTED 10/15/20 11:35 Nasal RSV (PCR) NOT DETECTED 10/15/20 11:35 Nasal Screen MRSA (PCR) NEGATIVE (NEGATIVE) 10/15/20 16:05 Nasal B.pertussis DNA PCR NOT DETECTED 10/15/20 11:35 Nasal C.pneumoniae (PCR) NOT DETECTED 10/15/20 11:35 [place] Human Metapneumo PCR NOT DETECTED 10/15/20 11:35 Nasal M.pneumoniae (PCR) NOT DETECTED 10/15/20 11:35 Nasal SARS-CoV-2 (PCR) NOT DETECTED 10/15/20 11:35 - Procedures Procedures: Procedures CLOSURE SKIN & SUBCUTANEOUS NEC (12/04/12) REPOSITION RIGHT RADIUS WITH INT FIX, OPEN APPROACH (08/14/18) TOTAL KNEE REPLACEMENT (12/14/14) ABX Reporting Has patient been on IV antibiotics over the past 48 hours?: Yes
[2020-10-19] MEDS ORDERED: AMIODARONE HCL 100 MG PO SCH (09:00)
[2020-10-19] MEDS: ACETAMINOPHEN 1,000 MG/100 ML 100 ML IV PRN (09:15)
[2020-10-19] MEDS: HEPARIN 5,000 UNIT/ML VIAL SUBQ SCH ×2 (09:15→21:19)
[2020-10-19] MEDS: SODIUM CHLORIDE FLUSH 0.9% 10 ML SYRINGE IVP PRN (16:46)
[2020-10-19] MEDS: LABETALOL 20 MG/4 ML SYRINGE IVP PRN ×2 (17:09→19:09)
[2020-10-19] MEDS: TPN (CLINIMIX E 5/15) 2,000 ML with MULTIVITAMIN 10 ML, TRACE ELEMENTS 1 ML IV SCH ×3 (18:44)
[2020-10-19] MEDS: FAT EMULSION 20% 250 ML IV SCH (18:45)
[2020-10-20] MEDS: SODIUM CHLORIDE FLUSH 0.9% 10 ML SYRINGE IVP SCH ×8 (01:04→23:11)
[2020-10-20] MEDS: PANTOPRAZOLE 80 MG in SODIUM CHLORIDE 0.9% 100ML 100 ML IV SCH (02:28)
[2020-10-20] MEDS: SODIUM CHLORIDE FLUSH 0.9% 10 ML SYRINGE IVP PRN ×4 (04:27→18:52)
[2020-10-20 05:00] LABS: ALBUMIN 2.2 g/dL (3.2-5.5); ALBUMIN/GLOBULIN RATIO 0.7 (1.0-2.2); CALCIUM 8.9 mg/dL (8.5-10.3); CREATININE 1.4 mg/dL (0.6-1.2); MAGNESIUM 1.8 mg/dL (1.7-2.8); PHOSPHORUS 3.3 mg/dL (2.5-4.6); POTASSIUM 3.7 mmol/L (3.5-5.0); TOTAL PROTEIN 5.2 g/dL (6.7-8.2)
[2020-10-20] MEDS: PIPERACILLIN/TAZOBACTAM 3.375 GM in SODIUM CHLORIDE 0.9% MINIBAG 100 ML IV SCH ×4 (06:17→23:10)
[2020-10-20] MEDS: INSULIN REGULAR HUMAN 300 UNIT/3 ML VIAL SUBQ SCH ×4 (06:17→23:06)
[2020-10-20] MEDS: LABETALOL 20 MG/4 ML SYRINGE IVP PRN (07:08)
--- NOTE | 2020-10-20 07:23 | PROVIDER PROGRESS NOTE ---
Assessment/Plan - Problem List (1) Leukocytosis Assessment/Plan: WBC today is 12. There is no change from the previous day. Patient is on Zosyn 3.375 g IV q6hrs. Will continue CT abdomen pelvis plan by general surgery. (2) Chronic atrial fibrillation Assessment/Plan: Rate controlled. Patient's amiodarone p.o. is currently held per general surgery instructions for strict n.p.o. This is for planned GI follow-up to ensure that there are no leaks. If needed will order metoprolol IV for rate control. (3) Generalized weakness Assessment/Plan: Physical therapy to evaluate and treat patient. 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 Creatinine today is 1.4 with an estimated GFR of 48. Patient is receiving a total of 100 mL/h. We will continue to monitor (6) Perforated abdominal viscus Assessment/Plan: Status post surgery. Postop day #4. General surgery is the primary attending. TPN initiated on 10/19/20 night. - Current Meds Current Meds: Current Medications Generic Name Dose Route Start Last Admin Trade Name Freq PRN Reason Stop Dose Admin Haloperidol 1 mg 10/18/20 23:46 10/19/20 17:33 Haloperidol 5 Mg/Ml Vial IVP 1 mg Q4H PRN Administration Agitation Heparin Sodium (Porcine) 5,000 unit 10/15/20 21:00 10/19/20 21:19 Heparin 5,000 Unit/Ml Vial SUBQ 5,000 unit Q12H PETRA Administration Hydromorphone HCl 0.5 mg 10/15/20 11:48 10/19/20 03:06 Hydromorphone 0.5 Mg/0.5 Ml Syringe IVP 0.5 mg Q2H PRN Administration Pain 8 to 10 Acetaminophen 100 mls @ 400 mls/hr 10/15/20 11:48 10/19/20 09:30 Ofirmev IV Infused Q6HR PRN Infusion PAIN Pantoprazole Sodium 80 mg/ 100 mls @ 10 mls/hr 10/15/20 17:00 10/20/20 02:28 Sodium Chloride IV 10 mls/hr .Q10H PETRA Administration Piperacillin Sod/Tazobactam 100 mls @ 200 mls/hr 10/17/20 06:00 10/20/20 06:55 Sod 3.375 gm/ Sodium Chloride IV Infused Q6H PETRA Infusion Multivitamins 10 ml/ TRACE 2,011 mls @ 83 mls/hr 10/19/20 19:00 10/19/20 18:44 ELEMENTS 1 ml/ Amino Ac/ IV 83 mls/hr Electrol/Dextrose/Calcium TPN/PPN PETRA Administration Fat Emulsion Intravenous 250 mls @ 21 mls/hr 10/19/20 19:00 10/20/20 06:55 Intralipid 20% IV Infused 1900 PETRA Infusion Dextrose/Sodium Chloride 1,000 mls @ 20 mls/hr 10/19/20 20:59 10/19/20 23:54 D5.45ns IV Not Given .Q48H PETRA Insulin Human Regular 1 - 5 unit 10/17/20 12:00 10/20/20 06:17 Insulin Regular Human 300 Unit/3 Ml Vial SUBQ 1 unit Q6HR [facility] Administration Protocol Labetalol HCl 10 mg 10/19/20 06:23 10/20/20 07:08 Labetalol 20 Mg/4 Ml Syringe IVP 10 mg Q2HR PRN Administration NEEDED PER PROVIDER ORDERS Sodium Chloride 10 ml 10/15/20 17:00 10/20/20 01:04 Sodium Chloride Flush 0.9% 10 Ml Syringe IVP Not Given 0100,0900,1700 PETRA Sodium Chloride 10 ml 10/15/20 11:48 10/20/20 04:27 Sodium Chloride Flush 0.9% 10 Ml Syringe IVP 10 ml PRN PRN Administration NEEDED PER PROVIDER ORDERS Sodium Chloride 10 ml 10/16/20 01:00 10/20/20 01:04 Sodium Chloride Flush 0.9% 10 Ml Syringe IVP Not Given 0100,0900,1700 PETRA Sodium Chloride 10 ml 10/15/20 21:33 10/20/20 04:27 Sodium Chloride Flush 0.9% 10 Ml Syringe IVP 10 ml PRN PRN Administration NEEDED PER PROVIDER ORDERS - Lab Result Fish Bone Diagrams: 10/19/20 04:40 10/20/20 04:30 - Additional Planning My Orders: My Active Orders 10/19/20 19:00 Fat Emulsion 20% [Intralipid 20%] 250 ml IV 1900 Multivitamin [Infuvite] 10 ml Trace Elements [Tralement Vial] 1 ml TPN (Clinimix E 5/15) [Clinimix E 5%-15% Solution] 2,000 ml IV TPN/PPN 10/20/20 07:20 hydrALAZINE INJ [Apresoline Inj] 10 mg IVP Q4H PRN Subjective - Subjective Patient Reports: Other (Patient resting comfortably in bed. He denied dyspnea, chest pain, abdominal pain or chills. He has some mild crackles bilaterally on auscultation. Percutaneous abdominal drainage tubes are appreciable. Drainage has significantly decreased and appears clear. Patient's abdomen is soft.) Objective Vital Signs: Vital Signs - 24 hr 10/19/20 10/19/20 10/19/20 08:00 08:26 09:00 Temperature 36.9 C Heart Rate Heart Rate [ Activity] Heart Rate [ 79 75 Monitoring electrodes] Heart Rate [ Supine] Respiratory 20 18 Rate Blood Pressure [Activity] Blood Pressure [Left Brachial artery] Blood Pressure 182/101 H 172/97 H 173/94 H [Right Brachial artery] Blood Pressure [Supine] O2 Saturation 95 95 10/19/20 10/19/20 10/19/20 10:00 10:15 11:00 Temperature 36.9 C Heart Rate 79 Heart Rate [ Activity] Heart Rate [ 68 89 Monitoring electrodes] Heart Rate [ Supine] Respiratory 16 24 27 H Rate Blood Pressure [Activity] Blood Pressure [Left Brachial artery] Blood Pressure 132/83 H 165/93 H [Right Brachial artery] Blood Pressure [Supine] O2 Saturation 93 94 97 10/19/20 10/19/20 10/19/20 11:50 11:55 12:00 Temperature 37.1 C Heart Rate Heart Rate [ 77 Activity] Heart Rate [ 73 Monitoring electrodes] Heart Rate [ 86 Supine] Respiratory 24 24 Rate Blood Pressure 153/81 H [Activity] Blood Pressure 166/84 H [Left Brachial artery] Blood Pressure [Right Brachial artery] Blood Pressure 166/84 H [Supine] O2 Saturation 88 L 96 10/19/20 10/19/20 10/19/20 13:00 14:00 15:00 Temperature Heart Rate Heart Rate [ Activity] Heart Rate [ 74 69 78 Monitoring electrodes] Heart Rate [ Supine] Respiratory 22 22 26 H Rate Blood Pressure [Activity] Blood Pressure 159/85 H 169/74 H 161/90 H [Left Brachial artery] Blood Pressure [Right Brachial artery] Blood Pressure [Supine] O2 Saturation 97 98 95 10/19/20 10/19/20 10/19/20 16:00 17:00 17:18 Temperature 36.6 C Heart Rate Heart Rate [ Activity] Heart Rate [ 71 82 63 Monitoring electrodes] Heart Rate [ Supine] Respiratory 25 H 27 H Rate Blood Pressure [Activity] Blood Pressure 179/96 H 189/104 H 148/101 H [Left Brachial artery] Blood Pressure [Right Brachial artery] Blood Pressure [Supine] O2 Saturation 97 99 10/19/20 10/19/20 10/19/20 17:21 18:00 19:00 Temperature Heart Rate Heart Rate [ Activity] Heart Rate [ 63 70 74 Monitoring electrodes] Heart Rate [ Supine] Respiratory 27 H 28 H Rate Blood Pressure [Activity] Blood Pressure 166/92 H 173/88 H 195/90 H [Left Brachial artery] Blood Pressure [Right Brachial artery] Blood Pressure [Supine] O2 Saturation 97 96 10/19/20 10/19/20 10/19/20 19:13 19:20 19:46 Temperature 37.2 C Heart Rate Heart Rate [ Activity] Heart Rate [ 69 77 70 Monitoring electrodes] Heart Rate [ Supine] Respiratory 27 H Rate Blood Pressure [Activity] Blood Pressure 155/99 H 173/95 H 160/82 H [Left Brachial artery] Blood Pressure [Right Brachial artery] Blood Pressure [Supine] O2 Saturation 94 10/19/20 10/19/20 10/19/20 20:00 21:00 22:00 Temperature Heart Rate Heart Rate [ Activity] Heart Rate [ 72 68 73 Monitoring electrodes] Heart Rate [ Supine] Respiratory 28 H 28 H 27 H Rate Blood Pressure [Activity] Blood Pressure 166/78 H 112/88 H 170/94 H [Left Brachial artery] Blood Pressure [Right Brachial artery] Blood Pressure [Supine] O2 Saturation 95 95 93 10/19/20 10/20/20 10/20/20 23:00 00:00 01:00 Temperature 36.8 C Heart Rate Heart Rate [ Activity] Heart Rate [ 68 65 62 Monitoring electrodes] Heart Rate [ Supine] Respiratory 24 18 18 Rate Blood Pressure [Activity] Blood Pressure 177/89 H 147/85 H 149/78 H [Left Brachial artery] Blood Pressure [Right Brachial artery] Blood Pressure [Supine] O2 Saturation 95 96 96 10/20/20 10/20/2010/20/21 02:36 02:38 03:00 Temperature Heart Rate Heart Rate [ Activity] Heart Rate [ 63 64 61 Monitoring electrodes] Heart Rate [ Supine] Respiratory 24 24 25 H Rate Blood Pressure [Activity] Blood Pressure 185/86 H 171/75 H 175/82 H [Left Brachial artery] Blood Pressure [Right Brachial artery] Blood Pressure [Supine] O2 Saturation 97 98 97 10/20/20 10/20/20 10/20/20 04:00 05:00 06:00 Temperature 36.8 C Heart Rate Heart Rate [ Activity] Heart Rate [ 63 66 62 Monitoring electrodes] Heart Rate [ Supine] Respiratory 21 23 25 H Rate Blood Pressure [Activity] Blood Pressure 142/75 H 177/86 H 169/71 H [Left Brachial artery] Blood Pressure [Right Brachial artery] Blood Pressure [Supine] O2 Saturation 97 98 100 10/20/20 10/20/20 07:07 07:17 Temperature Heart Rate Heart Rate [ Activity] Heart Rate [ 71 52 L Monitoring electrodes] Heart Rate [ Supine] Respiratory 20 Rate Blood Pressure [Activity] Blood Pressure 188/94 H 165/72 H [Left Brachial artery] Blood Pressure [Right Brachial artery] Blood Pressure [Supine] O2 Saturation 97 Oxygen O2 Source [With Activity] Room air O2 Source [Without Activity] Room air O2 Source Nasal cannula I&O (Last 24 Hrs): Intake and Output Totals x24h 10/18/20 10/19/20 10/20/20 23:59 23:59 23:59 Intake Total 3900 2315.000 547.833 Output Total 1982 2265 515 Balance 1918 50.000 32.833 General: Alert, Oriented x3, No acute distress HEENT: PERRLA, EOMI Neck: Supple, No JVD Neuro: Alert, Non Focal Cardiovascular: Regular rate, No murmurs Respiratory: Chest non-tender, No respiratory distress, Other (Mild crackles) Abdomen: Normal bowel sounds, Soft, Other (decreased output from percutaneous tubes) Extremities: No clubbing, No cyanosis, No edema Skin: No rashes, No breakdown - Results Results: Laboratory Results WBC 12.0 x10^3/uL (4.8-10.8) H 10/19/20 04:40 RBC 3.35 10^6/uL (4.70-6.10) L 10/19/20 04:40 Hgb 11.6 g/dL (14.0-18.0) L 10/19/20 04:40 Hct 36.1 % (42.0-52.0) L 10/19/20 04:40 MCV 107.8 fL (80.0-94.0) H 10/19/20 04:40 MCH 34.6 pg (27.0-31.0) H 10/19/20 04:40 MCHC 32.1 g/dL (32.0-36.0) 10/19/20 04:40 RDW 15.2 % (12.0-15.0) H 10/19/20 04:40 Plt Count 165 10^3/uL (130-450) 10/19/20 04:40 MPV 9.8 fL (7.4-11.4) 10/19/20 04:40 Neut # (Auto) 10.4 10^3/uL (1.5-6.6) H 10/19/20 04:40 Lymph # (Auto) 0.6 10^3/uL (1.5-3.5) L 10/19/20 04:40 [place] # (Auto) 0.8 10^3/uL (0.0-1.0) 10/19/20 04:40 Eos # (Auto) 0.1 10^3/uL (0.0-0.7) 10/19/20 04:40 Baso # (Auto) 0.0 10^3/uL (0.0-0.1) 10/19/20 04:40 Absolute Nucleated RBC 0.00 x10^3/uL 10/19/20 04:40 Nucleated RBC % 0.0 /100WBC 10/19/20 04:40 PT 13.7 secs (9.9-12.6) H 10/15/20 04:45 INR 1.2 (0.8-1.2) 10/15/20 04:45 Sodium 143 mmol/L (135-145) 10/20/20 04:30 Potassium 3.7 mmol/L (3.5-5.0) 10/20/20 04:30 Chloride 112 mmol/L (101-111) H 10/20/20 04:30 Carbon Dioxide 22 mmol/L (21-32) 10/20/20 04:30 Anion Gap 9.0 (6-13) 10/20/20 04:30 BUN 43 mg/dL (6-20) H 10/20/20 04:30 Creatinine 1.4 mg/dL (0.6-1.2) H 10/20/20 04:30 Estimated GFR (MDRD) 48 (>89) L 10/20/20 04:30 Glucose 166 mg/dL (70-100) H 10/20/20 04:30 Calcium 8.9 mg/dL (8.5-10.3) 10/20/20 04:30 Phosphorus 3.3 mg/dL (2.5-4.6) 10/20/20 04:30 Magnesium 1.8 mg/dL (1.7-2.8) 10/20/20 04:30 Total Bilirubin 1.0 mg/dL (0.2-1.0) 10/20/20 04:30 AST 12 IU/L (10-42) 10/20/20 04:30 ALT 11 IU/L (10-60) 10/20/20 04:30 Alkaline Phosphatase 96 IU/L (42-121) 10/20/20 04:30 Troponin I High Sens 32.0 ng/L (2.3-19.7) H* 10/16/20 15:44 Total Protein 5.2 g/dL (6.7-8.2) L 10/20/20 04:30 Albumin 2.2 g/dL (3.2-5.5) L 10/20/20 04:30 Globulin 3.0 g/dL (2.1-4.2) 10/20/20 04:30 Albumin/Globulin Ratio 0.7 (1.0-2.2) L 10/20/20 04:30 Prealbumin 5 mg/dL (18-45) L 10/20/20 04:30 Triglycerides 87 mg/dL (-149) 10/20/20 04:30 Lipase 71 U/L (22-51) H 10/15/20 04:45 Urine Color YELLOW 10/15/20 06:25 Urine Clarity CLEAR (CLEAR) 10/15/20 06:25 Urine pH 5.5 PH (5.0-7.5) 10/15/20 06:25 Ur Specific [place] 1.020 (1.002-1.030) 10/15/20 06:25 Urine Protein NEGATIVE mg/dL (NEGATIVE) 10/15/20 06:25 Urine Glucose (UA) NEGATIVE mg/dL (NEGATIVE) 10/15/20 06:25 Urine Ketones NEGATIVE mg/dL (NEGATIVE) 10/15/20 06:25 Urine Occult Blood NEGATIVE (NEGATIVE) 10/15/20 06:25 Urine Nitrite NEGATIVE (NEGATIVE) 10/15/20 06:25 Urine Bilirubin NEGATIVE (NEGATIVE) 10/15/20 06:25 Urine Urobilinogen 0.2 (NORMAL) E.U./dL (NORMAL) 10/15/20 06:25 Ur Leukocyte Esterase NEGATIVE (NEGATIVE) 10/15/20 06:25 Ur Microscopic Review NOT INDICATED 10/15/20 06:25 Urine Culture Comments NOT INDICATED 10/15/20 06:25 Nasal Adenovirus (PCR) NOT DETECTED 10/15/20 11:35 Nasal B. parapertussis DNA (PCR) NOT DETECTED 10/15/20 11:35 Nasal Coronavir 229E PCR NOT DETECTED 10/15/20 11:35 Nasal Coronavir HKU1 PCR NOT DETECTED 10/15/20 11:35 Nasal Coronavir NL63 PCR NOT DETECTED 10/15/20 11:35 Nasal Coronavir OC43 PCR NOT DETECTED 10/15/20 11:35 Nasal Enterovir/Rhinovir PCR NOT DETECTED 10/15/20 11:35 Nasal Influenza B PCR NOT DETECTED 10/15/20 11:35 Nasal Influenza A PCR NOT DETECTED 10/15/20 11:35 Nasal Parainfluen 1 PCR NOT DETECTED 10/15/20 11:35 Nasal Parainfluen 2 PCR NOT DETECTED 10/15/20 11:35 Nasal Parainfluen 3 PCR NOT DETECTED 10/15/20 11:35 Nasal Parainfluen 4 PCR NOT DETECTED 10/15/20 11:35 Nasal RSV (PCR) NOT DETECTED 10/15/20 11:35 Nasal Screen MRSA (PCR) NEGATIVE (NEGATIVE) 10/15/20 16:05 Nasal B.pertussis DNA PCR NOT DETECTED 10/15/20 11:35 Nasal C.pneumoniae (PCR) NOT DETECTED 10/15/20 11:35 Malvin Human Metapneumo PCR NOT DETECTED 10/15/20 11:35 Nasal M.pneumoniae (PCR) NOT DETECTED 10/15/20 11:35 Nasal SARS-CoV-2 (PCR) NOT DETECTED 10/15/20 11:35 - Procedures Procedures: Procedures CLOSURE SKIN & SUBCUTANEOUS NEC (12/04/12) REPOSITION RIGHT RADIUS WITH INT FIX, OPEN APPROACH (08/14/18) TOTAL KNEE REPLACEMENT (12/14/14) ABX Reporting Has patient been on IV antibiotics over the past 48 hours?: Yes
[2020-10-20] MEDS: ACETAMINOPHEN 1,000 MG/100 ML 100 ML IV PRN ×2 (08:57→20:04)
[2020-10-20] MEDS: HEPARIN 5,000 UNIT/ML VIAL SUBQ SCH ×2 (09:03→20:09)
[2020-10-20] MEDS: hydrALAZINE INJ 20 MG/ML VIAL IVP PRN ×3 (10:06→19:53)
[2020-10-20] MEDS: DEXTROSE 5%-0.45% NACL 1,000 ML IV SCH ×2 (11:53→19:57)
--- NOTE | 2020-10-20 14:40 | PROVIDER PROGRESS NOTE ---
Progress Note Subjective Postoperative day #4. Overall significantly improved. Pre-Op Diagnosis: Peritonitis; pneumoperitoneum; abdominal pain; suspected pancreatic mass Procedure Performed: 1. Diagnostic laparoscopy 2. Abdominal washout, laparoscopic peritoneal lavage 3. Peritoneal sampling, laparoscopic 4. Partial omentectomy, excisional laparoscopic 5. Laparoscopic assisted liver biopsy, Sánchez-Cut 6. Laparoscopic assisted gastric versus pancreatic biopsy, Sánchez-Cut 7. Drain placement laparoscopic assisted 8. Umbilical hernia repair Post Op Diagnosis: Same; Lt hepatic mass; gastric versus pancreatic mass; purulent peritonitis Objective Relative hypotension. No tachycardia. General Appearance: positive: No acute distress Eyes Bilateral: positive: Normal inspection ENT: positive: ENT inspection nml Neck: positive: Nml inspection Respiratory: positive: Chest non-tender, No respiratory distress, Breath sounds nml. negative: Wheezes, Rales, Rhonchi Cardiovascular: positive: Regular rate & rhythm Abdomen: positive: No distention, Other. negative: Guarding, Rebound Extremities: positive: Non-tender, Full ROM, Nml appearance Neurologic/Psychiatric: positive: Oriented x3, CN's nml (2-12) Abdominal Exam: Inspection - Erythema none; Scars trocars well healed Auscultation -normoactive bowel sounds Palpation - Hernias none; Fluctuance none; Induration none; Scar N/A Right sided Myron Drain with bilious output; Left minimal output. SUZANNE x2. Impression/Plan Postoperative day #4 status post diagnostic laparoscopy for peptic ulcer diseas e/perforated viscus. Concerns for pancreatic versus gastric mass. Likely sepsis, however shock resolved secondary to aggressive resusitation and broadened abd regimen, history of purulent peritonitis. Continued ICU level of care. Aggressive resuscitation and broad-spectrum antibiotics. Obtain CT abd/pelvis. (1) GI - IVF, strict n.p.o., therapeutic gtt. PPI. Opiate sparring analgesia however avoid nonsteroidals including Toradol. Nutrition consult for likely TPN. (2) SURGERY - maintain drains. Plan CT abdomen pelvis with oral contrast to evaluate for leak prior to commencement of oral feeding. Will await pathology. Will also need endoscopic evaluation in the subacute postoperative. 4 to 6 weeks. (3) Renal/Lytes - continue IVF. Renal indices within normal limits. Maintain Owens. (4) Respiratory - O2 as necessary. Continue IS. (5) Heme - Will continue with DVT ppx. H/H stable. (6) Cardiovascular - HD acceptable. Patient with rate controlled atrial fibrillation. Will hold amiodarone orally at this time. (7) Neuro - Opiate sparring analgesia. Antispasmodics with Robaxin. Avoid nonsteroidal. Neuropathic agents. Haldol for ICU delirium. (8) Immune/Infectious Disease - broad spectrum antibiotics awaiting operative cultures.
[2020-10-20] MEDS ORDERED: IOVERSOL 320 100 ML VIAL IVP ONE ×2 (14:46→21:40)
[2020-10-20] MEDS ORDERED: IOPAMIDOL-300 50 ML VIAL ONE (14:46)
--- NOTE | 2020-10-20 17:14 | CT Report ---
PROCEDURE: Abdomen/Pelvis W INDICATIONS: evaluate for perforated ulcer CONTRAST: IV CONTRAST: Optiray 320 ml: 100 PO CONTRAST: Isovue 300 ml50 TECHNIQUE: After the administration of oral and intravenous contrast, 5 mm thick sections acquired from the diap hragms to the symphysis. 5 mm thick coronal and sagittal reformats were acquired. For radiation dos e reduction, the following was used: automated exposure control, adjustment of mA and/or kV accordin g to patient size. COMPARISON: 10/15/2020. FINDINGS: Image quality: Excellent. ABDOMEN: Lung bases: Moderate bilateral pleural effusions, right greater than left, and bibasilar atelectasis. Cardiomegaly, as before. Coronary artery calcifications. Solid organs: Liver and spleen are normal in size and enhancement. Gallbladder is unremarkable. Bi liary system is non dilated. Again noted is the previously described pancreatic body mass which measu res in the neighborhood of 3.3 cm with atrophy of the tail and distal body of the pancreas and dilata tion of the pancreatic duct. No adrenal nodules. Kidneys demonstrate normal size and enhancement, wi thout hydronephrosis. Peritoneum and bowel: Interval decrease in amount of free intraperitoneal air and interval placement of a surgical drain indicating interval laparotomy. There is perihepatic ascites. There are tiny flec ks of air within the perihepatic fluid. No abscess cavity is identified. Nodes and vessels: No retroperitoneal or mesenteric adenopathy by size criteria. Aorta and inferior vena cava are normal in size. Miscellaneous: No ventral hernias. PELVIS: Genitourinary: A Owens catheter decompresses the bladder. Miscellaneous: Fat-containing left inguinal hernia. No inguinal adenopathy. Bones: No suspicious bony lesions. No vertebral body compression fractures. Lumbar degenerative ch alessandro. IMPRESSION: 1. Interval laparotomy, with normal decreasing amount of free air present.. 2. Moderate bilateral pleural effusions and bibasilar atelectasis. 3. Mild perihepatic ascites. 4. Known pancreatic mass. 5. No evidence of abscess. Reviewed by: Vito Peng MD on 10/20/2020 5:13 PM PDT Approved by: Vito Peng MD on 10/20/2020 5:13 PM PDT Station ID: [id number]
[2020-10-20] MEDS: TPN (CLINIMIX E 5/15) 2,000 ML with MULTIVITAMIN 10 ML, TRACE ELEMENTS 1 ML IV SCH ×3 (18:44)
[2020-10-20] MEDS: FAT EMULSION 20% 250 ML IV SCH (18:46)
[2020-10-20] MEDS: PANTOPRAZOLE 40 MG VIAL IVP SCH (20:06)
[2020-10-20] MEDS: HYDROmorphone 0.5 MG/0.5 ML SYRINGE IVP PRN (20:06)
[2020-10-20] MEDS ORDERED: IOPAMIDOL-300 50 ML VIAL PO ONE (21:41)
[2020-10-21] MEDS: hydrALAZINE INJ 20 MG/ML VIAL IVP PRN (00:19)
[2020-10-21] MEDS: HYDROmorphone 0.5 MG/0.5 ML SYRINGE IVP PRN ×2 (00:37→03:20)
[2020-10-21] MEDS: INSULIN REGULAR HUMAN 300 UNIT/3 ML VIAL SUBQ SCH ×4 (05:21→23:53)
[2020-10-21 05:52] LABS: ALBUMIN 2.3 g/dL (3.2-5.5); ALBUMIN/GLOBULIN RATIO 0.7 (1.0-2.2); BILIRUBIN,TOTAL 1.1 mg/dL (0.2-1.0); CALCIUM 9.1 mg/dL (8.5-10.3); CREATININE 1.3 mg/dL (0.6-1.2); MAGNESIUM 1.9 mg/dL (1.7-2.8); PHOSPHORUS 3.3 mg/dL (2.5-4.6); POTASSIUM 3.7 mmol/L (3.5-5.0); TOTAL PROTEIN 5.6 g/dL (6.7-8.2)
[2020-10-21 05:55] LABS: BASOPHILS # (AUTO) 0.1 10^3/uL (0.0-0.1); BASOPHILS % (AUTO) 0.4 %; EOSINOPHILS # (AUTO) 0.2 10^3/uL (0.0-0.7); EOSINOPHILS % (AUTO) 1.5 %; HCT - HEMATOCRIT 36.9 % (42.0-52.0); HGB - HEMOGLOBIN 11.9 g/dL (14.0-18.0); LYMPHOCYTES # (AUTO) 0.7 10^3/uL (1.5-3.5); LYMPHOCYTES % (AUTO) 5.2 %; MEAN CORPUSCULAR HEMOGLOBIN 34.2 pg (27.0-31.0); MEAN CORPUSCULAR HGB CONC 32.2 g/dL (32.0-36.0); MEAN PLATELET VOLUME 10.6 fL (7.4-11.4); MONOCYTES # (AUTO) 1.2 10^3/uL (0.0-1.0); MONOCYTES % (AUTO) 9.7 %; NEUTROPHILS # (AUTO) 10.1 10^3/uL (1.5-6.6); NEUTROPHILS % (AUTO) 81.4 %; PLT - PLATELET COUNT 165 10^3/uL (130-450); RED BLOOD COUNT 3.48 10^6/uL (4.70-6.10); RED CELL DISTRIBUTION WIDTH 15.2 % (12.0-15.0); WHITE BLOOD COUNT 12.5 x10^3/uL (4.8-10.8)
[2020-10-21] MEDS: PIPERACILLIN/TAZOBACTAM 3.375 GM in SODIUM CHLORIDE 0.9% MINIBAG 100 ML IV SCH ×4 (06:00→23:32)
--- NOTE | 2020-10-21 07:24 | PROVIDER PROGRESS NOTE ---
Assessment/Plan - Problem List (1) Leukocytosis Assessment/Plan: Blood cell count remained stable at 12.5. Patient is afebrile. CT scan of abd/pel was negative for any abdominal abscess or leaks. However a moderate pleural effusion was noted. Patient continues to be on Zosyn. (2) Moderate sized pleural effusion Assessment/Plan: CT scan of the abdomen showed moderate size pleural effusion. This is possibly due to aggressive IV hydration vs post surgery vs malignancy Lasix 40 mg IV ordered x1. We will do thoracentesis tomorrow. (3) Chronic atrial fibrillation Assessment/Plan: Currently rate controlled. (4) Generalized weakness Assessment/Plan: Physical therapy working with patient. 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 Creatinine today is 1.3 with a GFR of 52. Will continue to monitor (7) Perforated abdominal viscus Assessment/Plan: Status post surgery. Postop day #4. General surgery is the primary attending. TPN initiated on 10/19/20 night. - Current Meds Current Meds: Current Medications Generic Name Dose Route Start Last Admin Trade Name Freq PRN Reason Stop Dose Admin Heparin Sodium (Porcine) 5,000 unit 10/15/20 21:00 10/20/20 20:09 Heparin 5,000 Unit/Ml Vial SUBQ 5,000 unit Q12H PETRA Administration Hydralazine HCl 10 mg 10/20/20 07:20 10/21/20 00:19 Hydralazine Inj 20 Mg/Ml Vial IVP 10 mg Q4H PRN Administration PER PHYSICIAN ORDER Hydromorphone HCl 0.5 mg 10/15/20 11:48 10/21/20 03:20 Hydromorphone 0.5 Mg/0.5 Ml Syringe IVP 0.5 mg Q2H PRN Administration Pain 8 to 10 Acetaminophen 100 mls @ 400 mls/hr 10/15/20 11:48 10/20/20 20:38 Ofirmev IV Infused Q6HR PRN Infusion PAIN Piperacillin Sod/Tazobactam 100 mls @ 200 mls/hr 10/17/20 06:00 10/21/20 06:33 Sod 3.375 gm/ Sodium Chloride IV Infused Q6H PETRA Infusion Multivitamins 10 ml/ TRACE 2,011 mls @ 83 mls/hr 10/19/20 19:00 10/20/20 18:44 ELEMENTS 1 ml/ Amino Ac/ IV 83 mls/hr Electrol/Dextrose/Calcium TPN/PPN PETRA Administration Fat Emulsion Intravenous 250 mls @ 21 mls/hr 10/19/20 19:00 10/21/20 06:38 Intralipid 20% IV Infused 1900 PETRA Infusion Dextrose/Sodium Chloride 1,000 mls @ 20 mls/hr 10/19/20 20:59 10/20/20 19:57 D5.45ns IV 20 mls/hr .Q48H PETRA Administration Insulin Human Regular 1 - 5 unit 10/17/20 12:00 10/21/20 05:21 Insulin Regular Human 300 Unit/3 Ml Vial SUBQ Not Given Q6HR PETRA Protocol Labetalol HCl 10 mg 10/19/20 06:23 10/20/20 07:08 Labetalol 20 Mg/4 Ml Syringe IVP 10 mg Q2HR PRN Administration NEEDED PER PROVIDER ORDERS Pantoprazole Sodium 40 mg 10/20/20 21:00 10/20/20 20:06 Pantoprazole 40 Mg Vial IVP 40 mg BID PETRA Administration Sodium Chloride 10 ml 10/15/20 17:00 10/20/20 23:10 Sodium Chloride Flush 0.9% 10 Ml Syringe IVP 10 ml 0100,0900,1700 PETRA Administration Sodium Chloride 10 ml 10/15/20 11:48 10/20/20 18:52 Sodium Chloride Flush 0.9% 10 Ml Syringe IVP 10 ml PRN PRN Administration NEEDED PER PROVIDER ORDERS Sodium Chloride 10 ml 10/16/20 01:00 10/20/20 23:11 Sodium Chloride Flush 0.9% 10 Ml Syringe IVP 10 ml 0100,0900,1700 PETRA Administration Sodium Chloride 10 ml 10/15/20 21:33 10/20/20 04:27 Sodium Chloride Flush 0.9% 10 Ml Syringe IVP 10 ml PRN PRN Administration NEEDED PER PROVIDER ORDERS - Lab Result Fish Bone Diagrams: 10/21/20 05:15 10/21/20 05:16 - Additional Planning My Orders: My Active Orders 10/20/20 07:20 hydrALAZINE INJ [Apresoline Inj] 10 mg IVP Q4H PRN 10/20/20 21:00 Pantoprazole [Protonix] 40 mg IVP BID Subjective - Subjective Patient Reports: Other (Patient was resting comfortably in bed. He denied any pain. He has not had a bowel movement or pass gas. Percutaneous drain continues to appear clear.) Objective Vital Signs: Vital Signs - 24 hr 10/20/20 10/20/20 10/20/20 07:25 07:30 08:00 Temperature Heart Rate [ 57 L 53 L 65 Monitoring electrodes] Respiratory 27 H Rate Blood Pressure Blood Pressure 138/65 H 140/65 H 144/77 H [Left Brachial artery] Blood Pressure [Right Brachial artery] O2 Saturation 93 10/20/20 10/20/20 10/20/20 08:35 10:00 10:06 Temperature 37.1 C Heart Rate [ 71 Monitoring electrodes] Respiratory 27 H 21 Rate Blood Pressure 189/123 H Blood Pressure 189/123 H [Left Brachial artery] Blood Pressure [Right Brachial artery] O2 Saturation 90 L 96 10/20/20 10/20/20 10/20/20 10:13 10:36 10:49 Temperature Heart Rate [ 64 69 Monitoring electrodes] Respiratory 25 H Rate Blood Pressure 130/58 L Blood Pressure 155/84 H 160/65 H [Left Brachial artery] Blood Pressure [Right Brachial artery] O2 Saturation 97 10/20/20 10/20/20 10/20/20 10:51 11:00 11:26 Temperature Heart Rate [ 59 L 59 L 66 Monitoring electrodes] Respiratory 28 H 26 H 29 H Rate Blood Pressure Blood Pressure 142/65 H 130/58 L 127/78 [Left Brachial artery] Blood Pressure [Right Brachial artery] O2 Saturation 98 27 L 99 10/20/20 10/20/20 10/20/20 13:00 14:00 15:00 Temperature Heart Rate [ 68 65 72 Monitoring electrodes] Respiratory 25 H 27 H 31 H Rate Blood Pressure Blood Pressure 160/73 H 160/77 H 189/84 H [Left Brachial artery] Blood Pressure [Right Brachial artery] O2 Saturation 96 95 95 10/20/20 10/20/20 10/20/20 15:35 15:39 15:40 Temperature Heart Rate [ 61 62 Monitoring electrodes] Respiratory Rate Blood Pressure 189/84 H Blood Pressure 212/74 H 178/87 H [Left Brachial artery] Blood Pressure [Right Brachial artery] O2 Saturation 0610/20/20 10/20/20 15:45 15:55 16:00 Temperature Heart Rate [ 65 70 72 Monitoring electrodes] Respiratory 28 H Rate Blood Pressure Blood Pressure 169/93 H 201/94 H 179/82 H [Left Brachial artery] Blood Pressure [Right Brachial artery] O2 Saturation 91 L 10/20/20 10/20/20 10/20/20 16:15 16:30 17:00 Temperature Heart Rate [ 72 70 71 Monitoring electrodes] Respiratory 25 H Rate Blood Pressure 136/74 H Blood Pressure 171/68 H 136/74 H 161/82 H [Left Brachial artery] Blood Pressure [Right Brachial artery] O2 Saturation 95 10/20/20 10/20/20 10/20/20 17:41 18:00 19:00 Temperature 36.4 C L 36.4 C L Heart Rate [ 71 69 Monitoring electrodes] Respiratory 25 H 24 Rate Blood Pressure Blood Pressure 161/76 H [Left Brachial artery] Blood Pressure 153/98 H [Right Brachial artery] O2 Saturation 96 94 10/20/20 10/20/20 10/20/20 19:53 20:00 20:38 Temperature Heart Rate [ 69 Monitoring electrodes] Respiratory 22 Rate Blood Pressure 161/76 H 156/95 H Blood Pressure 156/95 H [Left Brachial artery] Blood Pressure [Right Brachial artery] O2 Saturation 94 10/20/20 10/20/20 10/20/20 21:00 22:00 23:00 Temperature Heart Rate [ 73 62 76 Monitoring electrodes] Respiratory 24 20 27 H Rate Blood Pressure Blood Pressure 114/56 L 129/56 L 150/74 H [Left Brachial artery] Blood Pressure [Right Brachial artery] O2 Saturation 96 97 99 10/21/20 10/21/20 10/21/20 00:07 00:19 00:26 Temperature 37.0 C Heart Rate [ 74 Monitoring electrodes] Respiratory 17 Rate Blood Pressure 181/85 H Blood Pressure 181/85 H [Left Brachial artery] Blood Pressure [Right Brachial artery] O2 Saturation 95 10/21/20 10/21/20 10/21/20 00:49 01:00 02:00 Temperature Heart Rate [ 70 74 Monitoring electrodes] Respiratory 19 16 Rate Blood Pressure 116/69 Blood Pressure 116/69 130/74 [Left Brachial artery] Blood Pressure [Right Brachial artery] O2 Saturation 96 96 10/21/20 10/21/20 10/21/20 03:00 04:00 05:00 Temperature Heart Rate [ 77 63 84 Monitoring electrodes] Respiratory 17 15 27 H Rate Blood Pressure Blood Pressure 137/66 H 110/72 113/64 [Left Brachial artery] Blood Pressure [Right Brachial artery] O2 Saturation 96 93 94 10/21/20 10/21/20 06:00 07:00 Temperature 36.3 C L Heart Rate [ 72 67 Monitoring electrodes] Respiratory 15 18 Rate Blood Pressure Blood Pressure 136/60 H 128/64 [Left Brachial artery] Blood Pressure [Right Brachial artery] O2 Saturation 95 94 Oxygen O2 Source [With Activity] Room air O2 Source [Without Activity] Room air O2 Source Nasal cannula I&O (Last 24 Hrs): Intake and Output Totals x24h 10/19/20 10/20/20 10/21/20 23:59 23:59 23:59 Intake Total 2315.000 4194.166 450 Output Total 2265 1890 306 Balance 50.000 2304.166 144 General: Alert, Oriented x3, No acute distress HEENT: PERRLA, EOMI Neck: Supple, No JVD Neuro: Alert, Non Focal Cardiovascular: Regular rate Respiratory: Chest non-tender, No respiratory distress, Rales Abdomen: Normal bowel sounds, Soft Extremities: No clubbing, No cyanosis, No edema Skin: No rashes, No breakdown - Results Results: Laboratory Results WBC 12.5 x10^3/uL (4.8-10.8) H 10/21/20 05:15 RBC 3.48 10^6/uL (4.70-6.10) L 10/21/20 05:15 Hgb 11.9 g/dL (14.0-18.0) L 10/21/20 05:15 Hct 36.9 % (42.0-52.0) L 10/21/20 05:15 MCV 106.0 fL (80.0-94.0) H 10/21/20 05:15 MCH 34.2 pg (27.0-31.0) H 10/21/20 05:15 MCHC 32.2 g/dL (32.0-36.0) 10/21/20 05:15 RDW 15.2 % (12.0-15.0) H 10/21/20 05:15 Plt Count 165 10^3/uL (130-450) 10/21/20 05:15 MPV 10.6 fL (7.4-11.4) 10/21/20 05:15 Neut # (Auto) 10.1 10^3/uL (1.5-6.6) H 10/21/20 05:15 Lymph # (Auto) 0.7 10^3/uL (1.5-3.5) L 10/21/20 05:15 Alcorn # (Auto) 1.2 10^3/uL (0.0-1.0) H 10/21/20 05:15 Eos # (Auto) 0.2 10^3/uL (0.0-0.7) 10/21/20 05:15 Baso # (Auto) 0.1 10^3/uL (0.0-0.1) 10/21/20 05:15 Absolute Nucleated RBC 0.00 x10^3/uL 10/21/20 05:15 Nucleated RBC % 0.0 /100WBC 10/21/20 05:15 PT 13.7 secs (9.9-12.6) H 10/15/20 04:45 INR 1.2 (0.8-1.2) 10/15/20 04:45 Sodium 139 mmol/L (135-145) 10/21/20 05:16 Potassium 3.7 mmol/L (3.5-5.0) 10/21/20 05:16 Chloride 109 mmol/L (101-111) 10/21/20 05:16 Carbon Dioxide 22 mmol/L (21-32) 10/21/20 05:16 Anion Gap 8.0 (6-13) 10/21/20 05:16 BUN 48 mg/dL (6-20) H 10/21/20 05:16 Creatinine 1.3 mg/dL (0.6-1.2) H 10/21/20 05:16 Estimated GFR (MDRD) 52 (>89) L 10/21/20 05:16 Glucose 151 mg/dL (70-100) H 10/21/20 05:16 Calcium 9.1 mg/dL (8.5-10.3) 10/21/20 05:16 Phosphorus 3.3 mg/dL (2.5-4.6) 10/21/20 05:16 Magnesium 1.9 mg/dL (1.7-2.8) 10/21/20 05:16 Total Bilirubin 1.1 mg/dL (0.2-1.0) H 10/21/20 05:16 AST 15 IU/L (10-42) 10/21/20 05:16 ALT 12 IU/L (10-60) 10/21/20 05:16 Alkaline Phosphatase 130 IU/L (42-121) H 10/21/20 05:16 Troponin I High Sens 32.0 ng/L (2.3-19.7) H* 10/16/20 15:44 Total Protein 5.6 g/dL (6.7-8.2) L 10/21/20 05:16 Albumin 2.3 g/dL (3.2-5.5) L 10/21/20 05:16 Globulin 3.3 g/dL (2.1-4.2) 10/21/20 05:16 Albumin/Globulin Ratio 0.7 (1.0-2.2) L 10/21/20 05:16 Prealbumin 6 mg/dL (18-45) L 10/21/20 05:16 Triglycerides 91 mg/dL (-149) 10/21/20 05:16 Lipase 71 U/L (22-51) H 10/15/20 04:45 Urine Color YELLOW 10/15/20 06:25 Urine Clarity CLEAR (CLEAR) 10/15/20 06:25 Urine pH 5.5 PH (5.0-7.5) 10/15/20 06:25 Ur Specific Junction 1.020 (1.002-1.030) 10/15/20 06:25 Urine Protein NEGATIVE mg/dL (NEGATIVE) 10/15/20 06:25 Urine Glucose (UA) NEGATIVE mg/dL (NEGATIVE) 10/15/20 06:25 Urine Ketones NEGATIVE mg/dL (NEGATIVE) 10/15/20 06:25 Urine Occult Blood NEGATIVE (NEGATIVE) 10/15/20 06:25 Urine Nitrite NEGATIVE (NEGATIVE) 10/15/20 06:25 Urine Bilirubin NEGATIVE (NEGATIVE) 10/15/20 06:25 Urine Urobilinogen 0.2 (NORMAL) E.U./dL (NORMAL) 10/15/20 06:25 Ur Leukocyte Esterase NEGATIVE (NEGATIVE) 10/15/20 06:25 Ur Microscopic Review NOT INDICATED 10/15/20 06:25 Urine Culture Comments NOT INDICATED 10/15/20 06:25 Nasal Adenovirus (PCR) NOT DETECTED 10/15/20 11:35 Nasal B. parapertussis DNA (PCR) NOT DETECTED 10/15/20 11:35 Nasal Coronavir 229E PCR NOT DETECTED 10/15/20 11:35 Nasal Coronavir HKU1 PCR NOT DETECTED 10/15/20 11:35 Nasal Coronavir NL63 PCR NOT DETECTED 10/15/20 11:35 Nasal Coronavir OC43 PCR NOT DETECTED 10/15/20 11:35 Nasal Enterovir/Rhinovir PCR NOT DETECTED 10/15/20 11:35 Nasal Influenza B PCR NOT DETECTED 10/15/20 11:35 Nasal Influenza A PCR NOT DETECTED 10/15/20 11:35 Nasal Parainfluen 1 PCR NOT DETECTED 10/15/20 11:35 Nasal Parainfluen 2 PCR NOT DETECTED 10/15/20 11:35 Nasal Parainfluen 3 PCR NOT DETECTED 10/15/20 11:35 Nasal Parainfluen 4 PCR NOT DETECTED 10/15/20 11:35 Nasal RSV (PCR) NOT DETECTED 10/15/20 11:35 Nasal Screen MRSA (PCR) NEGATIVE (NEGATIVE) 10/15/20 16:05 Nasal B.pertussis DNA PCR NOT DETECTED 10/15/20 11:35 Nasal C.pneumoniae (PCR) NOT DETECTED 10/15/20 11:35 Malvin Human Metapneumo PCR NOT DETECTED 10/15/20 11:35 Nasal M.pneumoniae (PCR) NOT DETECTED 10/15/20 11:35 Nasal SARS-CoV-2 (PCR) NOT DETECTED 10/15/20 11:35 - Procedures Procedures: Procedures CLOSURE SKIN & SUBCUTANEOUS NEC (12/04/12) REPOSITION RIGHT RADIUS WITH INT FIX, OPEN APPROACH (08/14/18) TOTAL KNEE REPLACEMENT (12/14/14) ABX Reporting Has patient been on IV antibiotics over the past 48 hours?: Yes
[2020-10-21] MEDS ORDERED: FUROSEMIDE 40 MG/4 ML VIAL IVP STA ×2 (08:08→22:07)
[2020-10-21 08:46] LABS: INR 1.4 (0.8-1.2); PT - PROTHROMBIN TIME 15.7 secs (9.9-12.6)
[2020-10-21] MEDS: HEPARIN 5,000 UNIT/ML VIAL SUBQ SCH ×2 (09:05→20:43)
[2020-10-21 09:22] LABS: FOLATE 7.6 ng/mL (5.90 - >24.8)
[2020-10-21] MEDS: SODIUM CHLORIDE FLUSH 0.9% 10 ML SYRINGE IVP SCH ×5 (09:22→20:43)
[2020-10-21] MEDS: PANTOPRAZOLE 40 MG VIAL IVP SCH ×2 (09:22→20:43)
--- NOTE | 2020-10-21 10:03 | PROVIDER PROGRESS NOTE ---
Progress Note Subjective Postoperative day #6. Overall significantly improved. Remains in ICU. Patient with dyspnea at rest. Pre-Op Diagnosis: Peritonitis; pneumoperitoneum; abdominal pain; suspected pancreatic mass Procedure Performed: 1. Diagnostic laparoscopy 2. Abdominal washout, laparoscopic peritoneal lavage 3. Peritoneal sampling, laparoscopic 4. Partial omentectomy, excisional laparoscopic 5. Laparoscopic assisted liver biopsy, Sánchez-Cut 6. Laparoscopic assisted gastric versus pancreatic biopsy, Sánchez-Cut 7. Drain placement laparoscopic assisted 8. Umbilical hernia repair Post Op Diagnosis: Same; Lt hepatic mass; gastric versus pancreatic mass; purulent peritonitis Objective Relative hypotension. No tachycardia. General Appearance: positive: No acute distress Eyes Bilateral: positive: Normal inspection ENT: positive: ENT inspection nml Neck: positive: Nml inspection Respiratory: positive: Chest non-tender, No respiratory distress, Breath sounds nml. negative: Wheezes, Rales, Rhonchi Cardiovascular: positive: Regular rate & rhythm Abdomen: positive: No distention, Other. negative: Guarding, Rebound Extremities: positive: Non-tender, Full ROM, Nml appearance Neurologic/Psychiatric: positive: Oriented x3, CN's nml (2-12) Abdominal Exam: Inspection - Erythema none; Scars trocars well healed Auscultation -normoactive bowel sounds Palpation - Hernias none; Fluctuance none; Induration none; Scar N/A Right sided Myron Drain with bilious output; Left minimal output. SUZANNE x2. Impression/Plan Postoperative day #6 status post diagnostic laparoscopy for peptic ulcer disease/perforated viscus. Concerns for pancreatic versus gastric mass. Likely sepsis, however shock resolved secondary to aggressive resusitation and broad ened abd regimen, history of purulent peritonitis. Patient has been scanned with no roshni evidence of leak however continues with bilious output from his right-sided drain. Awaiting pathology. Continued ICU level of care. Aggressive resuscitation and broad-spectrum antibiotics. Obtain CT abd/pelvis. (1) GI - IVF, strict n.p.o., therapeutic gtt. PPI. Opiate sparring analgesia however avoid nonsteroidals including Toradol. Patient at significant risk of developing a fistula if we began early enteral feeds given bilious drainage in spite of CT finding. We will continue TPN. We will repeat CAT scan on Sunday. We will do this with oral contrast. We will continue to follow output from drain. (2) SURGERY - maintain drains. Plan repeat CT abdomen pelvis with oral contrast to evaluate for leak prior to commencement of oral feeding. Will await pathology. Will also need endoscopic evaluation in the subacute postoperative. 4 to 6 weeks. (3) Renal/Lytes - continue IVF. Renal indices within normal limits. Maintain Owens. (4) Respiratory - O2 as necessary. Continue IS. (5) Heme - Will continue with DVT ppx. H/H stable. (6) Cardiovascular - HD acceptable. Patient with rate controlled atrial fibrillation. Will hold amiodarone orally at this time. (7) Neuro - Opiate sparring analgesia. Antispasmodics with Robaxin. Avoid nonsteroidal. Neuropathic agents. Haldol for ICU delirium. (8) Immune/Infectious Disease - broad spectrum antibiotics awaiting operative cultures.
[2020-10-21] MEDS: ACETAMINOPHEN 1,000 MG/100 ML 100 ML IV PRN (15:36)
[2020-10-21] MEDS: TPN (CLINIMIX E 5/15) 2,000 ML with MULTIVITAMIN 10 ML, TRACE ELEMENTS 1 ML IV SCH ×3 (18:23)
[2020-10-21] MEDS: FAT EMULSION 20% 250 ML IV SCH (18:24)
[2020-10-21] MEDS: SODIUM CHLORIDE FLUSH 0.9% 10 ML SYRINGE IVP PRN (20:43)
[2020-10-22] MEDS: ACETAMINOPHEN 1,000 MG/100 ML 100 ML IV PRN ×2 (00:12→15:28)
[2020-10-22] MEDS: SODIUM CHLORIDE FLUSH 0.9% 10 ML SYRINGE IVP SCH ×6 (02:01→23:43)
[2020-10-22] MEDS: HYDROmorphone 0.5 MG/0.5 ML SYRINGE IVP PRN (03:02)
[2020-10-22] MEDS: SODIUM CHLORIDE FLUSH 0.9% 10 ML SYRINGE IVP PRN ×7 (03:05→20:08)
[2020-10-22] MEDS: PIPERACILLIN/TAZOBACTAM 3.375 GM in SODIUM CHLORIDE 0.9% MINIBAG 100 ML IV SCH ×4 (05:29→23:43)
[2020-10-22] MEDS: INSULIN REGULAR HUMAN 300 UNIT/3 ML VIAL SUBQ SCH ×4 (05:30→23:39)
[2020-10-22 05:55] LABS: ALBUMIN 2.1 g/dL (3.2-5.5); ALBUMIN/GLOBULIN RATIO 0.7 (1.0-2.2); BILIRUBIN,TOTAL 1.1 mg/dL (0.2-1.0); CALCIUM 8.9 mg/dL (8.5-10.3); CREATININE 1.3 mg/dL (0.6-1.2); MAGNESIUM 1.7 mg/dL (1.7-2.8); PHOSPHORUS 3.9 mg/dL (2.5-4.6); POTASSIUM 3.4 mmol/L (3.5-5.0); TOTAL PROTEIN 5.1 g/dL (6.7-8.2)
[2020-10-22] MEDS ORDERED: MAGNESIUM SULFATE 2 GRAM 2 GM/50 ML BAG IV ONE (06:28)
[2020-10-22] MEDS: POTASSIUM CHLOR 20 MEQ/100 ML 20 MEQ/100 ML BAG IV SCH ×2 (07:45→09:00)
[2020-10-22] MEDS ORDERED: FUROSEMIDE 40 MG/4 ML VIAL IVP STA (08:16)
[2020-10-22] MEDS ORDERED: diphenhydrAMINE INJ 50 MG/ML VIAL IVP PRN (08:21)
[2020-10-22 08:44] LABS: BASOPHILS % (AUTO) 0.3 %; EOSINOPHILS # (AUTO) 0.3 10^3/uL (0.0-0.7); EOSINOPHILS % (AUTO) 2.7 %; HCT - HEMATOCRIT 34.5 % (42.0-52.0); HGB - HEMOGLOBIN 11.4 g/dL (14.0-18.0); LYMPHOCYTES # (AUTO) 0.8 10^3/uL (1.5-3.5); LYMPHOCYTES % (AUTO) 6.3 %; MEAN CORPUSCULAR HEMOGLOBIN 34.8 pg (27.0-31.0); MEAN CORPUSCULAR VOLUME 105.2 fL (80.0-94.0); MEAN PLATELET VOLUME 10.3 fL (7.4-11.4); NEUTROPHILS # (AUTO) 9.8 10^3/uL (1.5-6.6); NEUTROPHILS % (AUTO) 80.5 %; PLT - PLATELET COUNT 177 10^3/uL (130-450); RED BLOOD COUNT 3.28 10^6/uL (4.70-6.10); RED CELL DISTRIBUTION WIDTH 14.9 % (12.0-15.0); WHITE BLOOD COUNT 12.2 x10^3/uL (4.8-10.8)
[2020-10-22] MEDS: PANTOPRAZOLE 40 MG VIAL IVP SCH ×2 (09:04→20:08)
[2020-10-22] MEDS: hydrALAZINE INJ 20 MG/ML VIAL IVP PRN ×2 (10:10→23:42)
[2020-10-22] MEDS: HEPARIN 5,000 UNIT/ML VIAL SUBQ SCH ×2 (10:13→20:08)
--- NOTE | 2020-10-22 13:40 | Ultrasound Report ---
PROCEDURE: Chest INDICATIONS: Bilateral pleural effusion TECHNIQUE: Real-time scanning was performed, and a suitable site was marked by the senior occupational therapist for thoracentesis to be performed by the referring clinician. COMPARISON: None. FINDINGS: An trace to small effusion is noted in the right thorax and small left pleural effusions. The pleural effusions or insufficiency in size to safely perform thoracentesis. IMPRESSION: Trace to small right and small left pleural effusions insufficient in size to safely perform thoracen tesis. Reviewed by: Shameka Casanova MD, PhD on 10/22/2020 1:39 PM PDT Approved by: Shameka Casanova MD, PhD on 10/22/2020 1:39 PM PDT Station ID: [id number]
--- NOTE | 2020-10-22 15:19 | PROVIDER PROGRESS NOTE ---
Assessment/Plan - Problem List (1) Leukocytosis Assessment/Plan: Blood cell count remained stable at 12.5. Patient is afebrile. CT scan of abd/pel was negative for any abdominal abscess or leaks. Patient continues to be on Zosyn. (2) Moderate sized pleural effusion Assessment/Plan: Continued diuresis with IV Lasix. The pockets of fluid were too small for thoracentesis. (3) Chronic atrial fibrillation Assessment/Plan: Rate controlled. 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 Patient was seen by palliative care today. We will discuss pathology findings with the patient's tomorrow. (6) BIGG (acute kidney injury) Assessment/Plan: Creatinine today is 1.3 with a GFR of 52. Will continue to monitor (7) Perforated abdominal viscus Assessment/Plan: Status post surgery. Postop day #6. General surgery is the primary attending. - Current Meds Current Meds: Current Medications Generic Name Dose Route Start Last Admin Trade Name Freq PRN Reason Stop Dose Admin Heparin Sodium (Porcine) 5,000 unit 10/15/20 21:00 10/22/20 10:13 Heparin 5,000 Unit/Ml Vial SUBQ 5,000 unit Q12H PETRA Administration Hydralazine HCl 10 mg 10/20/20 07:20 10/22/20 10:10 Hydralazine Inj 20 Mg/Ml Vial IVP 10 mg Q4H PRN Administration PER PHYSICIAN ORDER Hydromorphone HCl 0.5 mg 10/15/20 11:48 10/22/20 03:02 Hydromorphone 0.5 Mg/0.5 Ml Syringe IVP 0.5 mg Q2H PRN Administration Pain 8 to 10 Acetaminophen 100 mls @ 400 mls/hr 10/15/20 11:48 10/22/20 00:48 Ofirmev IV Infused Q6HR PRN Infusion PAIN Piperacillin Sod/Tazobactam 100 mls @ 200 mls/hr 10/17/20 06:00 10/22/20 12:55 Sod 3.375 gm/ Sodium Chloride IV Infused Q6H PETRA Infusion Multivitamins 10 ml/ TRACE 2,011 mls @ 83 mls/hr 10/19/20 19:00 10/22/20 13:13 ELEMENTS 1 ml/ Amino Ac/ IV 83 mls/hr Electrol/Dextrose/Calcium TPN/PPN PETRA Infusion Fat Emulsion Intravenous 250 mls @ 21 mls/hr 10/19/20 19:00 10/22/20 06:30 Intralipid 20% IV Infused 1900 PETRA Infusion Insulin Human Regular 1 - 5 unit 10/17/20 12:00 10/22/20 12:45 Insulin Regular Human 300 Unit/3 Ml Vial SUBQ Not Given Q6HR [facility] Protocol Labetalol HCl 10 mg 10/19/20 06:23 10/20/20 07:08 Labetalol 20 Mg/4 Ml Syringe IVP 10 mg Q2HR PRN Administration NEEDED PER PROVIDER ORDERS Pantoprazole Sodium 40 mg 10/20/20 21:00 10/22/20 09:04 Pantoprazole 40 Mg Vial IVP 40 mg BID PETRA Administration Sodium Chloride 10 ml 10/15/20 17:00 10/22/20 09:14 Sodium Chloride Flush 0.9% 10 Ml Syringe IVP 10 ml 0100,0900,1700 PETRA Administration Sodium Chloride 10 ml 10/15/20 11:48 10/22/20 13:13 Sodium Chloride Flush 0.9% 10 Ml Syringe IVP 10 ml PRN PRN Administration NEEDED PER PROVIDER ORDERS - Lab Result Fish Bone Diagrams: 10/22/20 08:36 10/22/20 05:15 - Additional Planning My Orders: My Active Orders 10/22/20 08:21 diphenhydrAMINE INJ [Benadryl Inj] 25 mg IVP HS PRN 10/22/20 09:00 CELL COUNT, BF [BF] Routine 10/22/20 09:41 Echo Transthoracic Complete [ECHO] Routine 10/22/20 11:07 Palliative Care Consult [CONS] Routine 10/23/20 05:00 CBC - COMP BLD CT W/AUTO DIFF [HEME] DAILYLAB 10/23/20 06:00 FUROSEMIDE INJ 20mg VIAL [LASIX INJ 20mg VIAL] 20 mg IVP BIDDIURETIC 10/24/20 05:00 CBC - COMP BLD CT W/AUTO DIFF [HEME] DAILYLAB 10/25/20 05:00 CBC - COMP BLD CT W/AUTO DIFF [HEME] DAILYLAB 10/26/20 05:00 CBC - COMP BLD CT W/AUTO DIFF [HEME] DAILYLAB 10/27/20 05:00 CBC - COMP BLD CT W/AUTO DIFF [HEME] DAILYLAB Subjective - Subjective Patient Reports: Other (Patient was resting comfortably in bed at time of exam. He denied any complaints. He has had 2 bowel movements in the past 24 hours. Percutaneous drainage is clear and cholecystostomy tube is draining greenish fluid. He is afebrile) Objective Vital Signs: Vital Signs - 24 hr 10/21/20 10/21/20 10/21/20 16:00 17:00 18:00 Temperature 36.6 C Heart Rate [ 79 69 64 Monitoring electrodes] Respiratory 27 H 27 H 23 Rate Blood Pressure Blood Pressure 145/73 H 148/80 H 163/87 H [Left Brachial artery] O2 Saturation 95 95 93 10/21/20 10/21/20 10/21/20 19:00 20:00 21:00 Temperature 37.1 C Heart Rate [ 67 78 76 Monitoring electrodes] Respiratory 19 22 26 H Rate Blood Pressure Blood Pressure 138/51 H 151/80 H [Left Brachial artery] O2 Saturation 97 97 96 10/21/20 10/21/20 10/22/20 22:08 23:00 00:00 Temperature 37.1 C Heart Rate [ 75 73 76 Monitoring electrodes] Respiratory 25 H 24 28 H Rate Blood Pressure Blood Pressure 169/86 H 157/82 H 179/81 H [Left Brachial artery] O2 Saturation 89 L 94 95 10/22/20 10/22/20 10/22/20 01:00 02:00 03:06 Temperature 37.4 C Heart Rate [ 69 75 75 Monitoring electrodes] Respiratory 28 H 22 27 H Rate Blood Pressure Blood Pressure 129/84 H 162/91 H 190/81 H [Left Brachial artery] O2 Saturation 96 98 94 10/22/20 10/22/20 10/22/20 03:13 04:23 05:00 Temperature Heart Rate [ 74 70 Monitoring electrodes] Respiratory 19 23 Rate Blood Pressure Blood Pressure 165/72 H 141/67 H 159/80 H [Left Brachial artery] O2 Saturation 93 96 10/22/20 10/22/20 10/22/20 06:00 07:00 09:00 Temperature Heart Rate [ 78 60 67 Monitoring electrodes] Respiratory 26 H 18 22 Rate Blood Pressure Blood Pressure 149/101 H 156/77 H 159/60 H [Left Brachial artery] O2 Saturation 92 94 10/22/20 10/22/20 10/22/20 10:00 10:10 10:18 Temperature Heart Rate [ 72 72 Monitoring electrodes] Respiratory 23 23 Rate Blood Pressure 178/81 H Blood Pressure 178/81 H 175/78 H [Left Brachial artery] O2 Saturation 97 95 10/22/20 10/22/20 10/22/20 10:21 10:30 11:00 Temperature Heart Rate [ 74 73 71 Monitoring electrodes] Respiratory 24 Rate Blood Pressure 144/77 H Blood Pressure 163/69 H 151/69 H 144/77 H [Left Brachial artery] O2 Saturation 95 10/22/20 10/22/20 12:09 13:00 Temperature 36.9 C Heart Rate [ 75 73 Monitoring electrodes] Respiratory 31 H 25 H Rate Blood Pressure Blood Pressure 140/60 H 160/77 H [Left Brachial artery] O2 Saturation 95 93 Oxygen O2 Source [With Activity] Room air O2 Source [Without Activity] Room air O2 Source Nasal cannula I&O (Last 24 Hrs): Intake and Output Totals x24h 10/20/20 10/21/20 10/22/20 23:59 23:59 23:59 Intake Total 4194.166 3692.733 1983.383 Output Total 1890 3021 4345 Balance 2304.166 671.733 -2361.617 General: Alert, Oriented x3, No acute distress HEENT: PERRLA, EOMI Neck: Supple, No JVD Neuro: Alert, Non Focal Cardiovascular: Regular rate Respiratory: Chest non-tender, Other (bilateral crackles) Abdomen: Normal bowel sounds, Soft Extremities: No clubbing, No edema, No tenderness/swelling Skin: No rashes, No breakdown, No significant lesion - Results Results: Laboratory Results WBC 12.2 x10^3/uL (4.8-10.8) H 10/22/20 08:36 RBC 3.28 10^6/uL (4.70-6.10) L 10/22/20 08:36 Hgb 11.4 g/dL (14.0-18.0) L 10/22/20 08:36 Hct 34.5 % (42.0-52.0) L 10/22/20 08:36 MCV 105.2 fL (80.0-94.0) H 10/22/20 08:36 MCH 34.8 pg (27.0-31.0) H 10/22/20 08:36 MCHC 33.0 g/dL (32.0-36.0) 10/22/20 08:36 RDW 14.9 % (12.0-15.0) 10/22/20 08:36 Plt Count 177 10^3/uL (130-450) 10/22/20 08:36 MPV 10.3 fL (7.4-11.4) 10/22/20 08:36 Neut # (Auto) 9.8 10^3/uL (1.5-6.6) H 10/22/20 08:36 Lymph # (Auto) 0.8 10^3/uL (1.5-3.5) L 10/22/20 08:36 [place] # (Auto) 1.0 10^3/uL (0.0-1.0) 10/22/20 08:36 Eos # (Auto) 0.3 10^3/uL (0.0-0.7) 10/22/20 08:36 Baso # (Auto) 0.0 10^3/uL (0.0-0.1) 10/22/20 08:36 Absolute Nucleated RBC 0.00 x10^3/uL 10/22/20 08:36 Nucleated RBC % 0.0 /100WBC 10/22/20 08:36 PT 15.7 secs (9.9-12.6) H 10/21/20 07:44 INR 1.4 (0.8-1.2) H 10/21/20 07:44 Sodium 142 mmol/L (135-145) 10/22/20 05:15 Potassium 3.4 mmol/L (3.5-5.0) L 10/22/20 05:15 Chloride 106 mmol/L (101-111) 10/22/20 05:15 Carbon Dioxide 23 mmol/L (21-32) 10/22/20 05:15 Anion Gap 13.0 (6-13) 10/22/20 05:15 BUN 54 mg/dL (6-20) H 10/22/20 05:15 Creatinine 1.3 mg/dL (0.6-1.2) H 10/22/20 05:15 Estimated GFR (MDRD) 52 (>89) L 10/22/20 05:15 Glucose 145 mg/dL (70-100) H 10/22/20 05:15 POC Whole Bld Glucose 130 mg/dL (70 - 100) H 10/22/20 12:35 Calcium 8.9 mg/dL (8.5-10.3) 10/22/20 05:15 Phosphorus 3.9 mg/dL (2.5-4.6) 10/22/20 05:15 Magnesium 1.7 mg/dL (1.7-2.8) 10/22/20 05:15 Total Bilirubin 1.1 mg/dL (0.2-1.0) H 10/22/20 05:15 AST 19 IU/L (10-42) 10/22/20 05:15 ALT 12 IU/L (10-60) 10/22/20 05:15 Alkaline Phosphatase 143 IU/L (42-121) H 10/22/20 05:15 Troponin I High Sens 32.0 ng/L (2.3-19.7) H* 10/16/20 15:44 B-Natriuretic Peptide 805 pg/mL (5-100) H 10/22/20 08:36 Total Protein 5.1 g/dL (6.7-8.2) L 10/22/20 05:15 Albumin 2.1 g/dL (3.2-5.5) L 10/22/20 05:15 Globulin 3.0 g/dL (2.1-4.2) 10/22/20 05:15 Albumin/Globulin Ratio 0.7 (1.0-2.2) L 10/22/20 05:15 Prealbumin 7 mg/dL (18-45) L 10/22/20 05:15 Triglycerides 86 mg/dL (-149) 10/22/20 05:15 Lipase 71 U/L (22-51) H 10/15/20 04:45 Vitamin B12 1499 pg/mL (180-914) H 10/21/20 05:16 Folate 7.60 ng/mL (5.90 - >24.8) 10/21/20 05:16 Urine Color YELLOW 10/15/20 06:25 Urine Clarity CLEAR (CLEAR) 10/15/20 06:25 Urine pH 5.5 PH (5.0-7.5) 10/15/20 06:25 Ur Specific [place] 1.020 (1.002-1.030) 10/15/20 06:25 Urine Protein NEGATIVE mg/dL (NEGATIVE) 10/15/20 06:25 Urine Glucose (UA) NEGATIVE mg/dL (NEGATIVE) 10/15/20 06:25 Urine Ketones NEGATIVE mg/dL (NEGATIVE) 10/15/20 06:25 Urine Occult Blood NEGATIVE (NEGATIVE) 10/15/20 06:25 Urine Nitrite NEGATIVE (NEGATIVE) 10/15/20 06:25 Urine Bilirubin NEGATIVE (NEGATIVE) 10/15/20 06:25 Urine Urobilinogen 0.2 (NORMAL) E.U./dL (NORMAL) 10/15/20 06:25 Ur Leukocyte Esterase NEGATIVE (NEGATIVE) 10/15/20 06:25 Ur Microscopic Review NOT INDICATED 10/15/20 06:25 Urine Culture Comments NOT INDICATED 10/15/20 06:25 Nasal Adenovirus (PCR) NOT DETECTED 10/15/20 11:35 Nasal B. parapertussis DNA (PCR) NOT DETECTED 10/15/20 11:35 Nasal Coronavir 229E PCR NOT DETECTED 10/15/20 11:35 Nasal Coronavir HKU1 PCR NOT DETECTED 10/15/20 11:35 Nasal Coronavir NL63 PCR NOT DETECTED 10/15/20 11:35 Nasal Coronavir OC43 PCR NOT DETECTED 10/15/20 11:35 Nasal Enterovir/Rhinovir PCR NOT DETECTED 10/15/20 11:35 Nasal Influenza B PCR NOT DETECTED 10/15/20 11:35 Nasal Influenza A PCR NOT DETECTED 10/15/20 11:35 Nasal Parainfluen 1 PCR NOT DETECTED 10/15/20 11:35 Nasal Parainfluen 2 PCR NOT DETECTED 10/15/20 11:35 Nasal Parainfluen 3 PCR NOT DETECTED 10/15/20 11:35 Nasal Parainfluen 4 PCR NOT DETECTED 10/15/20 11:35 Nasal RSV (PCR) NOT DETECTED 10/15/20 11:35 Nasal Screen MRSA (PCR) NEGATIVE (NEGATIVE) 10/15/20 16:05 Nasal B.pertussis DNA PCR NOT DETECTED 10/15/20 11:35 Nasal C.pneumoniae (PCR) NOT DETECTED 10/15/20 11:35 Malvin Human Metapneumo PCR NOT DETECTED 10/15/20 11:35 Nasal M.pneumoniae (PCR) NOT DETECTED 10/15/20 11:35 Nasal SARS-CoV-2 (PCR) NOT DETECTED 10/15/20 11:35 Ref Lab Test Result REPORT 10/15/20 21:00 Ref Lab Test Result REPORT 10/15/20 21:00 - Procedures Procedures: Procedures CLOSURE SKIN & SUBCUTANEOUS NEC (12/04/12) REPOSITION RIGHT RADIUS WITH INT FIX, OPEN APPROACH (08/14/18) TOTAL KNEE REPLACEMENT (12/14/14) ABX Reporting Has patient been on IV antibiotics over the past 48 hours?: Yes
--- NOTE | 2020-10-22 15:42 | CONSULTATION NOTE ---
Palliative Care Consultation - Referral Referring Provider: Dr. Allen Pride Time of Visit: [id number] Referral setting: Hospitalized patient Referral Reason: Goals of care/ FTT/ s/p surg for neoplasm unknown origin - Information Sources Records reviewed: RN notes reviewed, Previous records reviewed History/Review of Systems obtained from: Patient, Family (spoke with Enedina his ), Nursing Exam limitations: Clinical condition (patient with confusion/baseline dementia STM deficits) - History of Present Illness Brief History of Present Illness: This is an 89-year-old gentleman who presented to [facility] ED with complaints of abdominal pain, after several day history of "heartburn" and epigastric discomfort. In review with his , he has long-term had mild dementia, for about 10 years, with worsening short-term memory issues superimposed on top of his long-term ADD with notable decline over the last y ear. He is very limited because of his left knee pain, because of patient's age, Covid, had not pursued surgery. She reports he does sleep most the time at home, is fairly limited as he is unable to go up and down stairs, has not lost weight, but has developed some incontinence of urine. She does perceive him with advanced aging, has been fairly gaetano up to this point given his medical status, and is very concerned regarding his current status and impact on quality of life. Patient did have surgery of diagnostic laparoscopically, abdominal washout, partial omentectomy, and drain placement. 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 He has developed some baseline pleural effusions but not enough to tap, is short of breath with a ctivity, has had some delirium superimposed upon his dementia with hallucinations that are fearful, semiviolent hallucinations, and some delusions. They are waiting for resolution of drainage from his SUZANNE's, before feeding, is currently supported by TPN. On examination he denies any pain, but is visibly distressed, slightly tremulous, and describes his feeling of impending doom as "anguish". After redirection and a little bit of life review, he did settle down some. 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 This may explain some of his hallucinations and delusions as well as his fearfulness. He does have some expiratory wheezes on the right, he is tachypneic, after repositioning with head up he felt somewhat better. He is distressed with all the "electronics" and has limited insight to his current situation. He does not present today with decision-making capacity. Medical/Surgical History - Past Medical History Cardiovascular: reports: Atrial fibrillation Respiratory: reports: Shortness of breath Neuro: Dementia Endocrine/Autoimmune: reports: None GI: reports: None : reports: Benign prostate hypertrophy, Incontinence, Frequency HEENT: reports: None Psych: reports: Anxiety, ADD/ADHD Musculoskeletal: reports: Osteoarthritis, Chronic back pain, Other (chronic left knee pain) Derm: reports: None MRSA Hx?: No - Past Surgical History General: reports: Appendectomy, Colonoscopy Ortho: reports: Knee replacement HEENT: reports: Tonsil/Adenoidectomy Social History - Living Situation Living arrangement: At home Living Situation: With spouse/s.o. Support System: Patient lives with his BROOK CORBIN, they have been for 56 years. She is 10 years younger than him, but has some health problems herself. 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 They live in a two-story home, they do not have any children, they have a niece who is his nephew's ex- that is coming tomorrow. She lives in [place] and is very supportive of them. BROOK CORBIN had fallen down the stairs, and had recognize that they needed to be and a more suitable setting particular if anything happened to her, they had been looking at assisted living facilities over in [place] by Pat. She reports she will put this on hold particularly if patient is transitioning to hospice, she reports they do have resources to be able to hire help if needed. Family History - Family History Family History: Mother: , Father: Medications/Allergies - Medications Active Medication List: Active Medications Diphenhydramine HCl (Diphenhydramine Inj 50 Mg/Ml Vial) 25 mg IVP HS PRN PRN Reason: Insomnia Furosemide (Furosemide 20 Mg/2 Ml Vial) 20 mg IVP BIDDIURETIC PETRA Heparin Sodium (Porcine) (Heparin 5,000 Unit/Ml Vial) 5,000 unit SUBQ Q12H [facility] Last Admin: 10/22/20 10:13 Dose: 5,000 unit Documented by: Hydralazine HCl (Hydralazine Inj 20 Mg/Ml Vial) 10 mg IVP Q4H PRN PRN Reason: PER PHYSICIAN ORDER Last Admin: 10/22/20 10:10 Dose: 10 mg Documented by: Hydromorphone HCl (Hydromorphone 0.5 Mg/0.5 Ml Syringe) 0.5 mg IVP Q2H PRN PRN Reason: Pain 8 to 10 Last Admin: 10/22/20 03:02 Dose: 0.5 mg Documented by: Acetaminophen (Ofirmev) 100 mls @ 400 mls/hr IV Q6HR PRN PRN Reason: PAIN Last Infusion: 10/22/20 00:48 Dose: Infused Documented by: Piperacillin Sod/Tazobactam (Sod 3.375 gm/ Sodium Chloride) 100 mls @ 200 mls/hr IV Q6H [facility] Last Infusion: 10/22/20 12:55 Dose: Infused Documented by: Multivitamins 10 ml/ TRACE ELEMENTS 1 ml/ Amino Ac/Electrol/Dextrose/Calcium 2,011 mls @ 83 mls/hr IV TPN/PPN [facility] Last Infusion: 10/22/20 13:13 Dose: 83 mls/hr Documented by: Fat Emulsion Intravenous (Intralipid 20%) 250 mls @ 21 mls/hr IV 1900 [facility] Last Infusion: 10/22/20 06:30 Dose: Infused Documented by: Insulin Human Regular (Insulin Regular Human 300 Unit/3 Ml Vial) 1 - 5 unit SUB Q Q6HR [facility]; Protocol Last Admin: 10/22/20 12:45 Dose: Not Given Documented by: Labetalol HCl (Labetalol 20 Mg/4 Ml Syringe) 10 mg IVP Q2HR PRN PRN Reason: NEEDED PER PROVIDER ORDERS Last Admin: 10/20/20 07:08 Dose: 10 mg Documented by: Olanzapine (Olanzapine Odt 5 Mg Tablet) 5 mg TL HS [facility] Pantoprazole Sodium (Pantoprazole 40 Mg Vial) 40 mg IVP BID [facility] Last Admin: 10/22/20 09:04 Dose: 40 mg Documented by: Sodium Chloride (Sodium Chloride Flush 0.9% 10 Ml Syringe) 10 ml IVP 01 00,0900,1700 [facility] Last Admin: 10/22/20 09:14 Dose: 10 ml Documented by: Sodium Chloride (Sodium Chloride Flush 0.9% 10 Ml Syringe) 10 ml IVP PRN PRN PRN Reason: NEEDED PER PROVIDER ORDERS Last Admin: 10/22/20 13:13 Dose: 10 ml Documented by: Aspirin [Aspir 81] 81 mg PO DAILY 12/04/12 Cyanocobalamin (Vitamin B-12) [B-12] 1,000 mcg PO DAILY 01/25/13 Amiodarone HCl 100 mg PO DAILY 12/10/14 - Allergies Allergies/Adverse Reactions: Allergies Allergy/AdvReac Type Severity Reaction Status Date / Time No Known Drug Allergies Allergy Verified 10/15/20 04:11 Review of Systems - Constitutional Constitutional: reports: Fatigue (has not been sleeping), Weakness, Weight loss - Ears, Nose & Throat Ears, Nose & Throat: reports: Dental decay, Dry mouth - Cardiovascular Cardiovascular: reports: Exertional dyspnea. denies: Chest pain, Edema - Respiratory Respiratory: reports: Wheezing, SOB at rest, SOB with exertion - Gastrointestinal Gastrointestinal: reports: Other (on TPN). denies: Abdominal pain, Abdominal distention, Nausea - Genitourinary Genitourinary: reports: Other (has vega catheter) - Musculoskeletal Musculoskeletal: reports: Back pain, Muscle aches, Stiffness, Limited range of motion, Muscle weakness, Transfer issues (needs lift for transfer; previous level of function limited with left knee and shoulder pain) - Integumentary Integumentary: reports: Dryness - Neurological Neurological: reports: General weakness, Memory problems (see HPI) - Psychiatric Psychiatric: reports: Anxiety, Delusions, Hallucinations, Aggitation - Hematologic/Lymphatic Hematologic/Lymph: reports: Anemia - All Other Systems All Other Systems: reports: Other (currently with two j/P drains) Physical Exam - Vital Signs Vital Signs: Vital Signs x48h Temp Pulse Resp BP BP Pulse Ox 10/22/20 13:00 73 25 H 160/77 H 93 10/22/20 12:09 36.9 C 75 31 H 140/60 H 95 10/22/20 11:00 71 24 144/77 H 144/77 H 95 10/22/20 10:30 73 151/69 H 10/22/20 10:21 74 163/69 H 10/22/20 10:18 72 23 175/78 H 95 10/22/20 10:10 178/81 H 10/22/20 10:00 72 23 178/81 H 97 10/22/20 09:00 67 22 159/60 H 94 - Physical Exam General Appearance: positive: Mild distress, Anxious Eyes Bilateral: positive: Other (eyes watery and slightly swollen) ENT: positive: Dry mucous membranes, Other (poor dentition) Neck: positive: Trachea midline Cardiovascular: positive: Irregularly irregular Respiratory: positive: Wheezes (right anteriorly), Other (RR up with any conversation or anxiety) Abdomen: positive: Soft, Tenderness (mild) Skin: positive: Pallor, Dryness, Bruising Extremities: positive: No pedal edema, Other (examined in bed) Neurologic/Psychiatric: positive: Weakness, Other (aware in hospital; not time or why he is here; tremorous) Palliative Care - POLST POLST Status: DNR Pain: Comment (describes his discomfort as "anguish") - Palliative Care Discussion: Spent time with patient trying to assess his orientation, insight into his current condition, and how he was processing information. Patient definitely presents with some delirium, he was able to be redirected and distracted we did discuss his careers, his , he was able to give me somewhat of a timeline. He did was definitely calmer after he went through where he was, oriented him to all his tubes, he was quite distressed with all the "technology". I did call and speak to his , she describes a man who has always been quite brilliant, he has ADD on top of his dementia, so had difficulty ever finishing a project often did strange things. At this point in time his life has been limited by his mobility, he sits around and sleeps most the time watches the same movie every night. They were looking at relocating to assisted living, she has put this on hold given most likely outcome is patient does have cancer. We did discuss planning in the context of this, her goals for him as she definitely does not want him in pain, she does not want to prolong anything or his suffering. She is hoping that things will go quickly. In the context of previous conversations in the advance care planning document I have, this would be consistent with patient is far as from 1999 if he were to have a terminal condition he would not things prolonged. She reports she would not have them do chemotherapy or radiation, that she feels like he has had a good life, and would like him to have a good . I did introduce hospice, recognizing is not 24/7 care, she reports she would need to hire some assistance with him. She would want a hospital bed, and the ability to keep him comfortable at home. She reports they do have new advance care planning documents, requested she bring these in but they are consistent with what they have done before. Her niece Pat is the second DPOA. She and Pat are coming to visit tomorrow, after the fact I did find out the biopsies were positive for cancer. Recommended the providers meet with her and Pat tomorrow and go over this in person. BROOK CORBIN and I had agreed to meet on Sunday with the expectation we would have the information and be able to move forward on further long-term planning. Patient was actually a previous patient of Dr. Piña, they did follow Dr. Martinez over to the [facility]. Results - Lab Results Lab results reviewed: Yes Fish Bones: 10/22/20 08:36 10/22/20 05:15 Lab and Imaging Results: Lab Results x24hrs 10/22/20 10/22/20 10/22/20 Range/Units 12:35 08:36 08:36 WBC 12.2 H (4.8-10.8) x10^3/uL RBC 3.28 L (4.70-6.10) 10^6/uL Hgb 11.4 L (14.0-18.0) g/dL Hct 34.5 L (42.0-52.0) % MCV 105.2 H (80.0-94.0) fL MCH 34.8 H (27.0-31.0) pg MCHC 33.0 (32.0-36.0) g/dL RDW 14.9 (12.0-15.0) % Plt Count 177 (130-450) 10^3/uL MPV 10.3 (7.4-11.4) fL Neut # (Auto) 9.8 H (1.5-6.6) 10^3/uL Lymph # (Auto) 0.8 L (1.5-3.5) 10^3/uL [place] # (Auto) 1.0 (0.0-1.0) 10^3/uL Eos # (Auto) 0.3 (0.0-0.7) 10^3/uL Baso # (Auto) 0.0 (0.0-0.1) 10^3/uL Absolute Nucleated RBC 0.00 x10^3/uL Nucleated RBC % 0.0 /100WBC Sodium (135-145) mmol/L Potassium (3.5-5.0) mmol/L Chloride (101-111) mmol/L Carbon Dioxide (21-32) mmol/L Anion Gap (6-13) BUN (6-20) mg/dL Creatinine (0.6-1.2) mg/dL Estimated GFR (MDRD) (>89) Glucose (70-100) mg/dL POC Whole Bld Glucose 130 H (70 - 100) mg/dL Calcium (8.5-10.3) mg/dL Phosphorus (2.5-4.6) mg/dL Magnesium (1.7-2.8) mg/dL Total Bilirubin (0.2-1.0) mg/dL AST (10-42) IU/L ALT (10-60) IU/L Alkaline Phosphatase (42-121) IU/L B-Natriuretic Peptide 805 H (5-100) pg/mL Total Protein (6.7-8.2) g/dL Albumin (3.2-5.5) g/dL Globulin (2.1-4.2) g/dL Albumin/Globulin Ratio (1.0-2.2) Prealbumin (18-45) mg/dL Triglycerides ( - 149) mg/dL Ref Lab Test Result 10/22/20 10/22/20 10/21/20 Range/Units 05:16 05:15 23:40 WBC (4.8-10.8) x10^3/uL RBC (4.70-6.10) 10^6/uL Hgb (14.0-18.0) g/dL Hct (42.0-52.0) % MCV (80.0-94.0) fL MCH (27.0-31.0) pg MCHC (32.0-36.0) g/dL RDW (12.0-15.0) % Plt Count (130-450) 10^3/uL MPV (7.4-11.4) fL Neut # (Auto) (1.5-6.6) 10^3/uL Lymph # (Auto) (1.5-3.5) 10^3/uL [place] # (Auto) (0.0-1.0) 10^3/uL Eos # (Auto) (0.0-0.7) 10^3/uL Baso # (Auto) (0.0-0.1) 10^3/uL Absolute Nucleated RBC x10^3/uL Nucleated RBC % /100WBC Sodium 142 (135-145) mmol/L Potassium 3.4 L (3.5-5.0) mmol/L Chloride 106 (101-111) mmol/L Carbon Dioxide 23 (21-32) mmol/L Anion Gap 13.0 (6-13) BUN 54 H (6-20) mg/dL Creatinine 1.3 H (0.6-1.2) mg/dL Estimated GFR (MDRD) 52 L (>89) Glucose 145 H (70-100) mg/dL POC Whole Bld Glucose 129 H 117 H (70 - 100) mg/dL Calcium 8.9 (8.5-10.3) mg/dL Phosphorus 3.9 (2.5-4.6) mg/dL Magnesium 1.7 (1.7-2.8) mg/dL Total Bilirubin 1.1 H (0.2-1.0) mg/dL AST 19 (10-42) IU/L ALT 12 (10-60) IU/L Alkaline Phosphatase 143 H (42-121) IU/L B-Natriuretic Peptide (5-100) pg/mL Total Protein 5.1 L (6.7-8.2) g/dL Albumin 2.1 L (3.2-5.5) g/dL Globulin 3.0 (2.1-4.2) g/dL Albumin/Globulin Ratio 0.7 L (1.0-2.2) Prealbumin 7 L (18-45) mg/dL Triglycerides 86 ( - 149) mg/dL Ref Lab Test Result 10/21/20 10/15/20 10/15/20 Range/Units 17:50 21:00 21:00 WBC (4.8-10.8) x10^3/uL RBC (4.70-6.10) 10^6/uL Hgb (14.0-18.0) g/dL Hct (42.0-52.0) % MCV (80.0-94.0) fL MCH (27.0-31.0) pg MCHC (32.0-36.0) g/dL RDW (12.0-15.0) % Plt Count (130-450) 10^3/uL MPV (7.4-11.4) fL Neut # (Auto) (1.5-6.6) 10^3/uL Lymph # (Auto) (1.5-3.5) 10^3/uL [place] # (Auto) (0.0-1.0) 10^3/uL Eos # (Auto) (0.0-0.7) 10^3/uL Baso # (Auto) (0.0-0.1) 10^3/uL Absolute Nucleated RBC x10^3/uL Nucleated RBC % /100WBC Sodium (135-145) mmol/L Potassium (3.5-5.0) mmol/L Chloride (101-111) mmol/L Carbon Dioxide (21-32) mmol/L Anion Gap (6-13) BUN (6-20) mg/dL Creatinine (0.6-1.2) mg/dL Estimated GFR (MDRD) (>89) Glucose (70-100) mg/dL POC Whole Bld Glucose 142 H (70 - 100) mg/dL Calcium (8.5-10.3) mg/dL Phosphorus (2.5-4.6) mg/dL Magnesium (1.7-2.8) mg/dL Total Bilirubin (0.2-1.0) mg/dL AST (10-42) IU/L ALT (10-60) IU/L Alkaline Phosphatase (42-121) IU/L B-Natriuretic Peptide (5-100) pg/mL Total Protein (6.7-8.2) g/dL Albumin (3.2-5.5) g/dL Globulin (2.1-4.2) g/dL Albumin/Globulin Ratio (1.0-2.2) Prealbumin (18-45) mg/dL Triglycerides ( - 149) mg/dL Ref Lab Test Result REPORT REPORT Impression and Recommendations - Palliative Care Impression: This is an 89-year-old gentleman who unfortunately presented with an acute event, now with complications following surgery in the context of his advanced age and serious illness, patient now presents with neoplasm. In the context of goals both reflective and his ACP and expressed by his , would be if he were to have cancer, no treatment but to transition to home hospice. Patient would need to be stabilized prior to discharge, and care plan in place to support . Palliative care providing support for symptom management as well as goals of care conversations, had initial conversations for the "what if's". with . Recommendations/Counseling Done: 1. Dementia with behavioral disturbances. This is multifactorial, suspect he has delirium superimposed on his underlying dementia complicated by long-term ADD. Patient is quite anxious and tremorous, would recommend an antipsychotic for mood stabilization. Patient may benefit from olanzapine ODT, would recommend trialing this in evening to see if can improve sleep patterns. Recommendations consistent with management of delirium, reorient patient to person place and environment, keep distractions down, and promote good sleep. 2. Neoplasm of unknown primary. I have not seen the final pathology, but underst and after the fact it was positive for cancer. At this juncture, has expressed no further treatment for cancer. Patient still with acute findings of SUZANNE drainage, TPN support, and mild respiratory distress. For patient to transition home, would need to stabilize to a level of comfort, to be able to manage in home setting with and hospice support. Would recommend keeping the Vega catheter for ease of caregiving. 3. Advanced care planning. Was able to have and advanced care planning con versation with , she is quite clear if he has cancer, focus of goals will be on comfort, not to prolong suffering, if he were to have an acute event, would not want intervention at this time if patient transitioning. Counseling provided regarding the continuum of care, including hospice. Reviewed hospice benefit, with reinforcement would need to hire some help for usp care and support. Psychosocial support provided, to both patient and . 90 minutes with greater than 50% of this done in counseling regarding advance care planning, coordination of care with hospitalist, nursing care, did leave message for Dr. Dunaway regarding pending outcomes, as well is heads up to hospice team.
[2020-10-22] MEDS: FAT EMULSION 20% 250 ML IV SCH (18:34)
[2020-10-22] MEDS: TPN (CLINIMIX E 5/15) 2,000 ML with MULTIVITAMIN 10 ML, TRACE ELEMENTS 1 ML IV SCH ×3 (18:34)
[2020-10-22] MEDS: OLANZapine ODT 5 MG TABLET TL SCH (20:07)
[2020-10-23] MEDS: SODIUM CHLORIDE FLUSH 0.9% 10 ML SYRINGE IVP PRN ×3 (05:28→19:45)
[2020-10-23] MEDS: FUROSEMIDE 20 MG/2 ML VIAL IVP SCH ×2 (05:28→14:48)
[2020-10-23] MEDS: PIPERACILLIN/TAZOBACTAM 3.375 GM in SODIUM CHLORIDE 0.9% MINIBAG 100 ML IV SCH ×2 (05:32→12:29)
[2020-10-23] MEDS: INSULIN REGULAR HUMAN 300 UNIT/3 ML VIAL SUBQ SCH ×4 (06:14→23:35)
[2020-10-23 06:19] LABS: BASOPHILS % (AUTO) 0.3 %; EOSINOPHILS # (AUTO) 0.5 10^3/uL (0.0-0.7); HCT - HEMATOCRIT 34.7 % (42.0-52.0); HGB - HEMOGLOBIN 11.1 g/dL (14.0-18.0); LYMPHOCYTES # (AUTO) 0.9 10^3/uL (1.5-3.5); LYMPHOCYTES % (AUTO) 6.6 %; MEAN CORPUSCULAR HEMOGLOBIN 33.5 pg (27.0-31.0); MEAN CORPUSCULAR VOLUME 104.8 fL (80.0-94.0); MEAN PLATELET VOLUME 10.6 fL (7.4-11.4); MONOCYTES # (AUTO) 0.9 10^3/uL (0.0-1.0); NEUTROPHILS # (AUTO) 10.7 10^3/uL (1.5-6.6); NEUTROPHILS % (AUTO) 80.5 %; PLT - PLATELET COUNT 214 10^3/uL (130-450); RED BLOOD COUNT 3.31 10^6/uL (4.70-6.10); WHITE BLOOD COUNT 13.3 x10^3/uL (4.8-10.8)
[2020-10-23 06:36] LABS: MAGNESIUM 2.1 mg/dL (1.7-2.8); PHOSPHORUS 3.5 mg/dL (2.5-4.6); POTASSIUM 3.4 mmol/L (3.5-5.0)
[2020-10-23] MEDS: POTASSIUM CHLOR 20 MEQ/100 ML 20 MEQ/100 ML BAG IV SCH ×2 (07:02→08:26)
--- NOTE | 2020-10-23 07:56 | PROVIDER PROGRESS NOTE ---
Assessment/Plan - Problem List (1) Pancreatic cancer Assessment/Plan: Biopsies of the pancreatic mass taken at time of surgery were sent out for pathology. 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 Dr Sullivan and I had a conversation with the patient's Enedina and his niece Radha at bedside presenting the pathology findings. Dr. Sullivan showed further light on findings at the time of surgery and highlighted the size of mass seen. The patient's decided on no further work-up or treatment with regards to the cancer and opted for comfort measures. She is agreeable to consulting hospice on Sunday. The patient has been seen by palliative care so far. However she requested for hospice at a facility expressing an [facility] because she will be unable to provide the needed care at home. That with comfort measures our goals of care would be focused to with keeping the patient comfortable. This will include continuing medications for pain, anxiety, air hunger and oral/airway secretions. We would discontinue any active curative measures. She expressed understanding and was agreeable with the plan. (2) Leukocytosis Assessment/Plan: WBC 13.3. Patient has been on Zosyn Plan was to repeat CT abd/pelvis on sunday to re-evaluate for possible leak However in light of pathology results of pancreatic mass biopsy, the family decided on comfort measures. (3) Moderate sized pleural effusion Assessment/Plan: Continued diuresis with IV Lasix. The pockets of fluid were too small for thoracentesis. (4) Chronic atrial fibrillation Assessment/Plan: Only not on any medication. Heart rate is in normal range. (5) Generalized weakness Assessment/Plan: Due to current medical condition and chronic comorbidities Patinet is currently comfort measures only. Will discontinue physical therapy (7) BIGG (acute kidney injury) Assessment/Plan: Stable. Creatinine is 1.3. Patient's baseline is around 1.2 (8) Perforated abdominal viscus Assessment/Plan: Status post surgery. Postop day #7. Drainage tubes in place and draining billous and serous fluids. Patient is on TPN. Will re-evaluate and possibly discontinue tomorrow. Clear liquid diet initiated - Current Meds Current Meds: Current Medications Generic Name Dose Route Start Last Admin Trade Name Freq PRN Reason Stop Dose Admin Furosemide 20 mg 10/23/20 06:00 10/23/20 05:28 Furosemide 20 Mg/2 Ml Vial IVP 20 mg BIDDIURETIC PETRA Administration Heparin Sodium (Porcine) 5,000 unit 10/15/20 21:00 10/22/20 20:08 Heparin 5,000 Unit/Ml Vial SUBQ 5,000 unit Q12H PETRA Administration Hydralazine HCl 10 mg 10/20/20 07:20 10/22/20 23:42 Hydralazine Inj 20 Mg/Ml Vial IVP 10 mg Q4H PRN Administration PER PHYSICIAN ORDER Hydromorphone HCl 0.5 mg 10/15/20 11:48 10/22/20 03:02 Hydromorphone 0.5 Mg/0.5 Ml Syringe IVP 0.5 mg Q2H PRN Administration Pain 8 to 10 Acetaminophen 100 mls @ 400 mls/hr 10/15/20 11:48 10/22/20 15:45 Ofirmev IV Infused Q6HR PRN Infusion PAIN Piperacillin Sod/Tazobactam 100 mls @ 200 mls/hr 10/17/20 06:00 10/23/20 06:14 Sod 3.375 gm/ Sodium Chloride IV Infused Q6H PETRA Infusion Multivitamins 10 ml/ TRACE 2,011 mls @ 83 mls/hr 10/19/20 19:00 10/23/20 06:00 ELEMENTS 1 ml/ Amino Ac/ IV 83 mls/hr Electrol/Dextrose/Calcium TPN/PPN PETRA Infusion Fat Emulsion Intravenous 250 mls @ 21 mls/hr 10/19/20 19:00 10/23/20 06:14 Intralipid 20% IV Infused 1900 [facility] Infusion Potassium Chloride 20 meq in 100 mls @ 100 mls/hr 10/23/20 07:00 10/23/20 07:02 Potassium Chloride IV 10/23/20 08:59 100 mls/hr Q1H PETRA Administration Insulin Human Regular 1 - 5 unit 10/17/20 12:00 10/23/20 06:14 Insulin Regular Human 300 Unit/3 Ml Vial SUBQ Not Given Q6HR [facility] Protocol Labetalol HCl 10 mg 10/19/20 06:23 10/20/20 07:08 Labetalol 20 Mg/4 Ml Syringe IVP 10 mg Q2HR PRN Administration NEEDED PER PROVIDER ORDERS Olanzapine 5 mg 10/22/20 21:00 10/22/20 20:07 Olanzapine Odt 5 Mg Tablet TL 5 mg HS PETRA Administration Pantoprazole Sodium 40 mg 10/20/20 21:00 10/22/20 20:08 Pantoprazole 40 Mg Vial IVP 40 mg BID PETRA Administration Sodium Chloride 10 ml 10/15/20 17:00 10/22/20 23:43 Sodium Chloride Flush 0.9% 10 Ml Syringe IVP 10 ml 0100,0900,1700 PETRA Administration Sodium Chloride 10 ml 10/15/20 11:48 10/23/20 07:03 Sodium Chloride Flush 0.9% 10 Ml Syringe IVP 10 ml PRN PRN Administration NEEDED PER PROVIDER ORDERS - Lab Result Fish Bone Diagrams: 10/23/20 05:30 10/23/20 07:54 - Additional Planning My Orders: My Active Orders 10/22/20 08:21 diphenhydrAMINE INJ [Benadryl Inj] 25 mg IVP HS PRN 10/22/20 09:00 CELL COUNT, BF [BF] Routine 10/22/20 09:41 Echo Transthoracic Complete [ECHO] Routine 10/22/20 11:07 Palliative Care Consult [CONS] Routine 10/22/20 21:00 OLANZapine ODT [ZyPREXA ODT] 5 mg TL HS 10/23/20 06:00 FUROSEMIDE INJ 20mg VIAL [LASIX INJ 20mg VIAL] 20 mg IVP BIDDIURETIC 10/23/20 07:54 BMP - BASIC METABOLIC PANEL [CHEM] Timed 10/24/20 05:00 CBC - COMP BLD CT W/AUTO DIFF [HEME] DAILYLAB 10/25/20 05:00 CBC - COMP BLD CT W/AUTO DIFF [HEME] DAILYLAB 10/26/20 05:00 CBC - COMP BLD CT W/AUTO DIFF [HEME] DAILYLAB 10/27/20 05:00 CBC - COMP BLD CT W/AUTO DIFF [HEME] DAILYLAB Subjective - Subjective Patient Reports: Other (He appears very restless/fidgety in bed at time of my visit. He was able to focus to talk to me. He denies any pain and appears to be breathing comfortably. SUZANNE drainage continues to be clear. He also continues to have greenish drainage in the second tube. He remains afebrile. Crackles persist) Objective Vital Signs: Vital Signs - 24 hr 10/22/20 10/22/20 10/22/20 09:00 10:00 10:10 Temperature Heart Rate [ 67 72 Monitoring electrodes] Respiratory 22 23 Rate Blood Pressure 178/81 H Blood Pressure 159/60 H 178/81 H [Left Brachial artery] O2 Saturation 94 97 10/22/20 10/22/20 10/22/20 10:18 10:21 10:30 Temperature Heart Rate [ 72 74 73 Monitoring electrodes] Respiratory 23 Rate Blood Pressure Blood Pressure 175/78 H 163/69 H 151/69 H [Left Brachial artery] O2 Saturation 95 10/22/20 10/22/20 10/22/20 11:00 12:09 13:00 Temperature 36.9 C Heart Rate [ 71 75 73 Monitoring electrodes] Respiratory 24 31 H 25 H Rate Blood Pressure 144/77 H Blood Pressure 144/77 H 140/60 H 160/77 H [Left Brachial artery] O2 Saturation 95 95 93 10/22/20 10/22/20 10/22/20 15:31 20:00 23:36 Temperature 37 C 37.4 C 37.3 C Heart Rate [ 75 69 74 Monitoring electrodes] Respiratory 20 25 H 26 H Rate Blood Pressure Blood Pressure 141/75 H 146/64 H 166/67 H [Left Brachial artery] O2 Saturation 94 94 93 10/22/20 10/22/20 10/22/20 23:40 23:42 23:45 Temperature Heart Rate [ 68 69 Monitoring electrodes] Respiratory Rate Blood Pressure 166/67 H Blood Pressure 156/67 H 150/72 H [Left Brachial artery] O2 Saturation 10/22/20 10/23/20 10/23/20 23:50 00:00 00:15 Temperature Heart Rate [ 70 72 69 Monitoring electrodes] Respiratory 27 H Rate Blood Pressure 132/66 H Blood Pressure 158/70 H 145/59 H 132/66 H [Left Brachial artery] O2 Saturation 92 10/23/20 10/23/20 10/23/20 00:30 03:55 04:57 Temperature 37.1 C Heart Rate [ 71 75 Monitoring electrodes] Respiratory 29 H 26 H Rate Blood Pressure Blood Pressure 146/58 H 160/68 H [Left Brachial artery] O2 Saturation 100 93 10/23/20 05:30 Temperature Heart Rate [ Monitoring electrodes] Respiratory 26 H Rate Blood Pressure Blood Pressure [Left Brachial artery] O2 Saturation 93 Oxygen O2 Source [With Activity] Room air O2 Source [Without Activity] Room air O2 Source Nasal cannula I&O (Last 24 Hrs): Intake and Output Totals x24h 10/21/20 10/22/20 10/23/20 23:59 23:59 23:59 Intake Total 3692.733 3088.500 932.9 Output Total 3021 5385 1050 Balance 671.733 -2296.500 -117.1 General: Alert, Oriented x3, No acute distress HEENT: PERRLA, EOMI Neck: Supple, No JVD Neuro: Alert, Non Focal Cardiovascular: Regular rate Respiratory: Chest non-tender, Rales Abdomen: Normal bowel sounds, Soft Extremities: No clubbing, No cyanosis, No edema Skin: No rashes, No breakdown, No significant lesion - Results Results: Laboratory Results WBC 13.3 x10^3/uL (4.8-10.8) H 10/23/20 05:30 RBC 3.31 10^6/uL (4.70-6.10) L 10/23/20 05:30 Hgb 11.1 g/dL (14.0-18.0) L 10/23/20 05:30 Hct 34.7 % (42.0-52.0) L 10/23/20 05:30 MCV 104.8 fL (80.0-94.0) H 10/23/20 05:30 MCH 33.5 pg (27.0-31.0) H 10/23/20 05:30 MCHC 32.0 g/dL (32.0-36.0) 10/23/20 05:30 RDW 15.0 % (12.0-15.0) 10/23/20 05:30 Plt Count 214 10^3/uL (130-450) 10/23/20 05:30 MPV 10.6 fL (7.4-11.4) 10/23/20 05:30 Neut # (Auto) 10.7 10^3/uL (1.5-6.6) H 10/23/20 05:30 Lymph # (Auto) 0.9 10^3/uL (1.5-3.5) L 10/23/20 05:30 Allen # (Auto) 0.9 10^3/uL (0.0-1.0) 10/23/20 05:30 Eos # (Auto) 0.5 10^3/uL (0.0-0.7) 10/23/20 05:30 Baso # (Auto) 0.0 10^3/uL (0.0-0.1) 10/23/20 05:30 Absolute Nucleated RBC 0.00 x10^3/uL 10/23/20 05:30 Nucleated RBC % 0.0 /100WBC 10/23/20 05:30 PT 15.7 secs (9.9-12.6) H 10/21/20 07:44 INR 1.4 (0.8-1.2) H 10/21/20 07:44 Sodium 142 mmol/L (135-145) 10/22/20 05:15 Potassium 3.4 mmol/L (3.5-5.0) L 10/23/20 05:30 Chloride 106 mmol/L (101-111) 10/22/20 05:15 Carbon Dioxide 23 mmol/L (21-32) 10/22/20 05:15 Anion Gap 13.0 (6-13) 10/22/20 05:15 BUN 54 mg/dL (6-20) H 10/22/20 05:15 Creatinine 1.3 mg/dL (0.6-1.2) H 10/22/20 05:15 Estimated GFR (MDRD) 52 (>89) L 10/22/20 05:15 Glucose 145 mg/dL (70-100) H 10/22/20 05:15 POC Whole Bld Glucose 114 mg/dL (70 - 100) H 10/23/20 05:27 Calcium 9.0 mg/dL (8.5-10.3) 10/23/20 05:30 Phosphorus 3.5 mg/dL (2.5-4.6) 10/23/20 05:30 Magnesium 2.1 mg/dL (1.7-2.8) 10/23/20 05:30 Total Bilirubin 1.1 mg/dL (0.2-1.0) H 10/22/20 05:15 AST 19 IU/L (10-42) 10/22/20 05:15 ALT 12 IU/L (10-60) 10/22/20 05:15 Alkaline Phosphatase 143 IU/L (42-121) H 10/22/20 05:15 Troponin I High Sens 32.0 ng/L (2.3-19.7) H* 10/16/20 15:44 B-Natriuretic Peptide 805 pg/mL (5-100) H 10/22/20 08:36 Total Protein 5.1 g/dL (6.7-8.2) L 10/22/20 05:15 Albumin 2.1 g/dL (3.2-5.5) L 10/22/20 05:15 Globulin 3.0 g/dL (2.1-4.2) 10/22/20 05:15 Albumin/Globulin Ratio 0.7 (1.0-2.2) L 10/22/20 05:15 Prealbumin 7 mg/dL (18-45) L 10/22/20 05:15 Triglycerides 86 mg/dL (-149) 10/22/20 05:15 Lipase 71 U/L (22-51) H 10/15/20 04:45 Vitamin B12 1499 pg/mL (180-914) H 10/21/20 05:16 Folate 7.60 ng/mL (5.90 - >24.8) 10/21/20 05:16 Urine Color YELLOW 10/15/20 06:25 Urine Clarity CLEAR (CLEAR) 10/15/20 06:25 Urine pH 5.5 PH (5.0-7.5) 10/15/20 06:25 Ur Specific [place] 1.020 (1.002-1.030) 10/15/20 06:25 Urine Protein NEGATIVE mg/dL (NEGATIVE) 10/15/20 06:25 Urine Glucose (UA) NEGATIVE mg/dL (NEGATIVE) 10/15/20 06:25 Urine Ketones NEGATIVE mg/dL (NEGATIVE) 10/15/20 06:25 Urine Occult Blood NEGATIVE (NEGATIVE) 10/15/20 06:25 Urine Nitrite NEGATIVE (NEGATIVE) 10/15/20 06:25 Urine Bilirubin NEGATIVE (NEGATIVE) 10/15/20 06:25 Urine Urobilinogen 0.2 (NORMAL) E.U./dL (NORMAL) 10/15/20 06:25 Ur Leukocyte Esterase NEGATIVE (NEGATIVE) 10/15/20 06:25 Ur Microscopic Review NOT INDICATED 10/15/20 06:25 Urine Culture Comments NOT INDICATED 10/15/20 06:25 Nasal Adenovirus (PCR) NOT DETECTED 10/15/20 11:35 Nasal B. parapertussis DNA (PCR) NOT DETECTED 10/15/20 11:35 Nasal Coronavir 229E PCR NOT DETECTED 10/15/20 11:35 Nasal Coronavir HKU1 PCR NOT DETECTED 10/15/20 11:35 Nasal Coronavir NL63 PCR NOT DETECTED 10/15/20 11:35 Nasal Coronavir OC43 PCR NOT DETECTED 10/15/20 11:35 Nasal Enterovir/Rhinovir PCR NOT DETECTED 10/15/20 11:35 Nasal Influenza B PCR NOT DETECTED 10/15/20 11:35 Nasal Influenza A PCR NOT DETECTED 10/15/20 11:35 Nasal Parainfluen 1 PCR NOT DETECTED 10/15/20 11:35 Nasal Parainfluen 2 PCR NOT DETECTED 10/15/20 11:35 Nasal Parainfluen 3 PCR NOT DETECTED 10/15/20 11:35 Nasal Parainfluen 4 PCR NOT DETECTED 10/15/20 11:35 Nasal RSV (PCR) NOT DETECTED 10/15/20 11:35 Nasal Screen MRSA (PCR) NEGATIVE (NEGATIVE) 10/15/20 16:05 Nasal B.pertussis DNA PCR NOT DETECTED 10/15/20 11:35 Nasal C.pneumoniae (PCR) NOT DETECTED 10/15/20 11:35 Malvin Human Metapneumo PCR NOT DETECTED 10/15/20 11:35 Nasal M.pneumoniae (PCR) NOT DETECTED 10/15/20 11:35 Nasal SARS-CoV-2 (PCR) NOT DETECTED 10/15/20 11:35 Ref Lab Test Result REPORT 10/15/20 21:00 Ref Lab Test Result REPORT 10/15/20 21:00 - Procedures Procedures: Procedures CLOSURE SKIN & SUBCUTANEOUS NEC (12/04/12) REPOSITION RIGHT RADIUS WITH INT FIX, OPEN APPROACH (08/14/18) TOTAL KNEE REPLACEMENT (12/14/14) ABX Reporting Has patient been on IV antibiotics over the past 48 hours?: Yes
[2020-10-23 08:07] LABS: CALCIUM 9.2 mg/dL (8.5-10.3); CREATININE 1.3 mg/dL (0.6-1.2)
[2020-10-23] MEDS: HEPARIN 5,000 UNIT/ML VIAL SUBQ SCH (08:25)
[2020-10-23] MEDS: PANTOPRAZOLE 40 MG VIAL IVP SCH (08:26)
[2020-10-23] MEDS: SODIUM CHLORIDE FLUSH 0.9% 10 ML SYRINGE IVP SCH ×4 (08:26→23:34)
[2020-10-23] MEDS: HYDROmorphone 0.5 MG/0.5 ML SYRINGE IVP PRN ×2 (12:31→23:34)
[2020-10-23] MEDS: hydrALAZINE INJ 20 MG/ML VIAL IVP PRN (16:18)
[2020-10-23] MEDS ORDERED: GLYCOPYRROLATE 1 MG/5 ML VIAL SUBQ PRN (17:35)
[2020-10-23] MEDS: TPN (CLINIMIX E 5/15) 2,000 ML with MULTIVITAMIN 10 ML, TRACE ELEMENTS 1 ML IV SCH ×3 (18:46)
[2020-10-23] MEDS: FAT EMULSION 20% 250 ML IV SCH (18:47)
[2020-10-23] MEDS: OLANZapine ODT 5 MG TABLET TL SCH (20:19)
[2020-10-23] MEDS: LORazepam 2 MG/ML VIAL IVP PRN (22:56)
[2020-10-24] MEDS: SODIUM CHLORIDE FLUSH 0.9% 10 ML SYRINGE IVP PRN ×6 (05:01→21:24)
[2020-10-24] MEDS: FUROSEMIDE 20 MG/2 ML VIAL IVP SCH ×2 (05:12→13:39)
[2020-10-24 05:31] LABS: ALBUMIN/GLOBULIN RATIO 0.7 (1.0-2.2); CALCIUM 8.6 mg/dL (8.5-10.3); CREATININE 1.3 mg/dL (0.6-1.2); MAGNESIUM 2.1 mg/dL (1.7-2.8); POTASSIUM 3.4 mmol/L (3.5-5.0)
[2020-10-24] MEDS: HYDROmorphone 0.5 MG/0.5 ML SYRINGE IVP PRN ×2 (05:51→21:24)
[2020-10-24] MEDS: INSULIN REGULAR HUMAN 300 UNIT/3 ML VIAL SUBQ SCH ×2 (06:01→12:33)
--- NOTE | 2020-10-24 07:47 | PROVIDER PROGRESS NOTE ---
Assessment/Plan - Problem List (1) Pancreatic cancer Assessment/Plan: Comfort care measures were initiated yesterday. TPN discontinued today. We will consult hospice tomorrow 10/25/20. (8) Perforated abdominal viscus Assessment/Plan: On comfort measures. Output from drainage tube with bilious fluid has significantly decreased. We will keep the drainage tube in place for comfort. Reasoning pain that if taken out bile could cause peritonitis which would worsen the patient's pain. Plan is to keep it in place event as patient transitions to hospice care. - Current Meds Current Meds: Current Medications Generic Name Dose Route Start Last Admin Trade Name Freq PRN Reason Stop Dose Admin Furosemide 20 mg 10/23/20 06:00 10/24/20 05:12 Furosemide 20 Mg/2 Ml Vial IVP 20 mg BIDDIURETIC PETRA Administration Hydromorphone HCl 0.5 mg 10/15/20 11:48 10/24/20 05:51 Hydromorphone 0.5 Mg/0.5 Ml Syringe IVP 0.5 mg Q2H PRN Administration Pain 8 to 10 Multivitamins 10 ml/ TRACE 2,011 mls @ 83 mls/hr 10/19/20 19:00 10/24/20 05:14 ELEMENTS 1 ml/ Amino Ac/ IV 83 mls/hr Electrol/Dextrose/Calcium TPN/PPN PETRA Infusion Fat Emulsion Intravenous 250 mls @ 21 mls/hr 10/19/20 19:00 10/24/20 06:50 Intralipid 20% IV Infused 1900 PETRA Infusion Insulin Human Regular 1 - 5 unit 10/17/20 12:00 10/24/20 06:01 Insulin Regular Human 300 Unit/3 Ml Vial SUBQ Not Given Q6HR [facility] Protocol Lorazepam 1 mg 10/23/20 17:35 10/23/20 22:56 Lorazepam 2 Mg/Ml Vial IVP 1 mg Q6H PRN Administration Anxiety/Agitation Olanzapine 5 mg 10/22/20 21:00 10/23/20 20:19 Olanzapine Odt 5 Mg Tablet TL 5 mg HS PETRA Administration Sodium Chloride 10 ml 10/15/20 17:00 10/23/20 23:34 Sodium Chloride Flush 0.9% 10 Ml Syringe IVP 10 ml 0100,0900,1700 PETRA Administration Sodium Chloride 10 ml 10/15/20 11:48 10/24/20 05:54 Sodium Chloride Flush 0.9% 10 Ml Syringe IVP 10 ml PRN PRN Administration NEEDED PER PROVIDER ORDERS - Lab Result Fish Bone Diagrams: 10/23/20 05:30 10/24/20 05:00 - Additional Planning My Orders: My Active Orders 10/23/20 Lunch Clear Liquid Diet [DIET] 10/23/20 17:35 Comfort Care [RC] QSHIFT Glycopyrrolate [Robinul] 0.2 mg SUBQ Q4H PRN LORazepam INJ [Ativan Inj (Vial)] 1 mg IVP Q6H PRN Subjective - Subjective Patient Reports: Other (Patient was asleep when I initially entered his room. However he subsequently woke up and seemed agitated/restless. His speech was unintelligible. He specifically denied pain when asked. Decreased output of billous fluid in SUZANNE drain) Objective Vital Signs: Vital Signs - 24 hr 10/23/20 10/23/20 10/23/20 08:43 12:19 16:17 Temperature 37.0 C 37.0 C 37.1 C Heart Rate [ Brachial] Heart Rate [ 78 77 74 Monitoring electrodes] Respiratory 30 H 29 H 25 H Rate Blood Pressure Blood Pressure 158/80 H 175/82 H 174/95 H [Left Brachial artery] O2 Saturation 94 92 92 10/23/20 10/23/20 10/23/20 16:18 16:24 16:29 Temperature Heart Rate [ Brachial] Heart Rate [ 78 82 Monitoring electrodes] Respiratory Rate Blood Pressure 174/95 H Blood Pressure 142/80 H 150/75 H [Left Brachial artery] O2 Saturation 10/23/20 10/23/20 10/23/20 16:34 16:45 16:48 Temperature Heart Rate [ Brachial] Heart Rate [ 79 79 Monitoring electrodes] Respiratory Rate Blood Pressure 148/78 H Blood Pressure 154/83 H 145/78 H [Left Brachial artery] O2 Saturation 10/23/20 10/23/20 10/24/20 17:00 17:15 05:54 Temperature 36 C L Heart Rate [ 77 Brachial] Heart Rate [ 72 72 Monitoring electrodes] Respiratory 20 Rate Blood Pressure Blood Pressure 145/73 H 146/77 H 163/87 H [Left Brachial artery] O2 Saturation 92 Oxygen O2 Source [With Activity] Room air O2 Source [Without Activity] Room air O2 Source Nasal cannula I&O (Last 24 Hrs): Intake and Output Totals x24h 10/22/20 10/23/20 10/24/20 23:59 23:59 23:59 Intake Total 3088.500 2540.450 990.817 Output Total 5385 2890 435 Balance -2296.500 -349.550 555.817 General: No acute distress, Other (Oriented X2) HEENT: PERRLA, EOMI Neck: Supple, No JVD Neuro: Alert Cardiovascular: Regular rate Respiratory: Chest non-tender, Rales (mild) Abdomen: Normal bowel sounds, Soft, No tenderness, Other (Percutanous drain with clear serous fluid SUZANNE drain with billous fluid. Output decreased today) Extremities: No clubbing, No cyanosis, No edema Skin: No rashes, No breakdown, No significant lesion - Results Results: Laboratory Results WBC 13.3 x10^3/uL (4.8-10.8) H 10/23/20 05:30 RBC 3.31 10^6/uL (4.70-6.10) L 10/23/20 05:30 Hgb 11.1 g/dL (14.0-18.0) L 10/23/20 05:30 Hct 34.7 % (42.0-52.0) L 10/23/20 05:30 MCV 104.8 fL (80.0-94.0) H 10/23/20 05:30 MCH 33.5 pg (27.0-31.0) H 10/23/20 05:30 MCHC 32.0 g/dL (32.0-36.0) 10/23/20 05:30 RDW 15.0 % (12.0-15.0) 10/23/20 05:30 Plt Count 214 10^3/uL (130-450) 10/23/20 05:30 MPV 10.6 fL (7.4-11.4) 10/23/20 05:30 Neut # (Auto) 10.7 10^3/uL (1.5-6.6) H 10/23/20 05:30 Lymph # (Auto) 0.9 10^3/uL (1.5-3.5) L 10/23/20 05:30 Andrew # (Auto) 0.9 10^3/uL (0.0-1.0) 10/23/20 05:30 Eos # (Auto) 0.5 10^3/uL (0.0-0.7) 10/23/20 05:30 Baso # (Auto) 0.0 10^3/uL (0.0-0.1) 10/23/20 05:30 Absolute Nucleated RBC 0.00 x10^3/uL 10/23/20 05:30 Nucleated RBC % 0.0 /100WBC 10/23/20 05:30 PT 15.7 secs (9.9-12.6) H 10/21/20 07:44 INR 1.4 (0.8-1.2) H 10/21/20 07:44 Sodium 141 mmol/L (135-145) 10/24/20 05:00 Potassium 3.4 mmol/L (3.5-5.0) L 10/24/20 05:00 Chloride 107 mmol/L (101-111) 10/24/20 05:00 Carbon Dioxide 27 mmol/L (21-32) 10/24/20 05:00 Anion Gap 7.0 (6-13) 10/24/20 05:00 BUN 59 mg/dL (6-20) H 10/24/20 05:00 Creatinine 1.3 mg/dL (0.6-1.2) H 10/24/20 05:00 Estimated GFR (MDRD) 52 (>89) L 10/24/20 05:00 Glucose 152 mg/dL (70-100) H 10/24/20 05:00 POC Whole Bld Glucose 138 mg/dL (70 - 100) H 10/24/20 05:19 Calcium 8.6 mg/dL (8.5-10.3) 10/24/20 05:00 Phosphorus 4.0 mg/dL (2.5-4.6) 10/24/20 05:00 Magnesium 2.1 mg/dL (1.7-2.8) 10/24/20 05:00 Total Bilirubin 1.0 mg/dL (0.2-1.0) 10/24/20 05:00 AST 18 IU/L (10-42) 10/24/20 05:00 ALT 13 IU/L (10-60) 10/24/20 05:00 Alkaline Phosphatase 176 IU/L (42-121) H 10/24/20 05:00 Troponin I High Sens 32.0 ng/L (2.3-19.7) H* 10/16/20 15:44 B-Natriuretic Peptide 805 pg/mL (5-100) H 10/22/20 08:36 Total Protein 5.0 g/dL (6.7-8.2) L 10/24/20 05:00 Albumin 2.0 g/dL (3.2-5.5) L 10/24/20 05:00 Globulin 3.0 g/dL (2.1-4.2) 10/24/20 05:00 Albumin/Globulin Ratio 0.7 (1.0-2.2) L 10/24/20 05:00 Prealbumin 7 mg/dL (18-45) L 10/22/20 05:15 Triglycerides 89 mg/dL (-149) 10/24/20 05:00 Lipase 71 U/L (22-51) H 10/15/20 04:45 Vitamin B12 1499 pg/mL (180-914) H 10/21/20 05:16 Folate 7.60 ng/mL (5.90 - >24.8) 10/21/20 05:16 Urine Color YELLOW 10/15/20 06:25 Urine Clarity CLEAR (CLEAR) 10/15/20 06:25 Urine pH 5.5 PH (5.0-7.5) 10/15/20 06:25 Ur Specific [place] 1.020 (1.002-1.030) 10/15/20 06:25 Urine Protein NEGATIVE mg/dL (NEGATIVE) 10/15/20 06:25 Urine Glucose (UA) NEGATIVE mg/dL (NEGATIVE) 10/15/20 06:25 Urine Ketones NEGATIVE mg/dL (NEGATIVE) 10/15/20 06:25 Urine Occult Blood NEGATIVE (NEGATIVE) 10/15/20 06:25 Urine Nitrite NEGATIVE (NEGATIVE) 10/15/20 06:25 Urine Bilirubin NEGATIVE (NEGATIVE) 10/15/20 06:25 Urine Urobilinogen 0.2 (NORMAL) E.U./dL (NORMAL) 10/15/20 06:25 Ur Leukocyte Esterase NEGATIVE (NEGATIVE) 10/15/20 06:25 Ur Microscopic Review NOT INDICATED 10/15/20 06:25 Urine Culture Comments NOT INDICATED 10/15/20 06:25 Nasal Adenovirus (PCR) NOT DETECTED 10/15/20 11:35 Nasal B. parapertussis DNA (PCR) NOT DETECTED 10/15/20 11:35 Nasal Coronavir 229E PCR NOT DETECTED 10/15/20 11:35 Nasal Coronavir HKU1 PCR NOT DETECTED 10/15/20 11:35 Nasal Coronavir NL63 PCR NOT DETECTED 10/15/20 11:35 Nasal Coronavir OC43 PCR NOT DETECTED 10/15/20 11:35 Nasal Enterovir/Rhinovir PCR NOT DETECTED 10/15/20 11:35 Nasal Influenza B PCR NOT DETECTED 10/15/20 11:35 Nasal Influenza A PCR NOT DETECTED 10/15/20 11:35 Nasal Parainfluen 1 PCR NOT DETECTED 10/15/20 11:35 Nasal Parainfluen 2 PCR NOT DETECTED 10/15/20 11:35 Nasal Parainfluen 3 PCR NOT DETECTED 10/15/20 11:35 Nasal Parainfluen 4 PCR NOT DETECTED 10/15/20 11:35 Nasal RSV (PCR) NOT DETECTED 10/15/20 11:35 Nasal Screen MRSA (PCR) NEGATIVE (NEGATIVE) 10/15/20 16:05 Nasal B.pertussis DNA PCR NOT DETECTED 10/15/20 11:35 Nasal C.pneumoniae (PCR) NOT DETECTED 10/15/20 11:35 Malvin Human Metapneumo PCR NOT DETECTED 10/15/20 11:35 Nasal M.pneumoniae (PCR) NOT DETECTED 10/15/20 11:35 Nasal SARS-CoV-2 (PCR) NOT DETECTED 10/15/20 11:35 Ref Lab Test Result REPORT 10/15/20 21:00 Ref Lab Test Result REPORT 10/15/20 21:00 - Procedures Procedures: Procedures CLOSURE SKIN & SUBCUTANEOUS NEC (12/04/12) REPOSITION RIGHT RADIUS WITH INT FIX, OPEN APPROACH (08/14/18) TOTAL KNEE REPLACEMENT (12/14/14) ABX Reporting Has patient been on IV antibiotics over the past 48 hours?: No
--- NOTE | 2020-10-24 12:28 | PROVIDER PROGRESS NOTE ---
Subjective - Prog Note Date Prog Note Date: 10/24/20 - Subjective Subjective: appears comfortable Objective - Vital Signs/Intake & Output Reviewed Vital Signs: Yes Vital Signs: Vital Signs x48h Temp Pulse Resp BP Pulse Ox 10/24/20 05:54 36 C L 77 20 163/87 H 92 Intake & Output: Intake & Output 10/21/20 10/22/20 10/23/20 10/24/20 23:59 23:59 23:59 23:59 Intake Total 3692.733 3088.500 2540.450 1425.184 Output Total 3021 5385 2890 1195 Balance 671.733 -2296.500 -349.550 230.184 - Objective General Appearance: positive: No acute distress Respiratory: positive: No respiratory distress Abdomen: positive: Non-tender, No distention, Other (left natanael thin serous right natanael bilious) - Lab Results Fish Bones: 10/23/20 05:30 10/24/20 05:00 Other Labs: Lab Results x24hrs 10/24/20 10/24/20 10/24/20 Range/Units 12:17 05:19 05:00 Sodium 141 (135-145) mmol/L Potassium 3.4 L (3.5-5.0) mmol/L Chloride 107 (101-111) mmol/L Carbon Dioxide 27 (21-32) mmol/L Anion Gap 7.0 (6-13) BUN 59 H (6-20) mg/dL Creatinine 1.3 H (0.6-1.2) mg/dL Estimated GFR (MDRD) 52 L (>89) Glucose 152 H (70-100) mg/dL POC Whole Bld Glucose 105 H 138 H (70 - 100) mg/dL Calcium 8.6 (8.5-10.3) mg/dL Phosphorus 4.0 (2.5-4.6) mg/dL Magnesium 2.1 (1.7-2.8) mg/dL Total Bilirubin 1.0 (0.2-1.0) mg/dL AST 18 (10-42) IU/L ALT 13 (10-60) IU/L Alkaline Phosphatase 176 H (42-121) IU/L Total Protein 5.0 L (6.7-8.2) g/dL Albumin 2.0 L (3.2-5.5) g/dL Globulin 3.0 (2.1-4.2) g/dL Albumin/Globulin Ratio 0.7 L (1.0-2.2) Triglycerides 89 ( - 149) mg/dL 10/23/20 10/23/20 Range/Units 23:33 18:08 Sodium (135-145) mmol/L Potassium (3.5-5.0) mmol/L Chloride (101-111) mmol/L Carbon Dioxide (21-32) mmol/L Anion Gap (6-13) BUN (6-20) mg/dL Creatinine (0.6-1.2) mg/dL Estimated GFR (MDRD) (>89) Glucose (70-100) mg/dL POC Whole Bld Glucose 151 H 128 H (70 - 100) mg/dL Calcium (8.5-10.3) mg/dL Phosphorus (2.5-4.6) mg/dL Magnesium (1.7-2.8) mg/dL Total Bilirubin (0.2-1.0) mg/dL AST (10-42) IU/L ALT (10-60) IU/L Alkaline Phosphatase (42-121) IU/L Total Protein (6.7-8.2) g/dL Albumin (3.2-5.5) g/dL Globulin (2.1-4.2) g/dL Albumin/Globulin Ratio (1.0-2.2) Triglycerides ( - 149) mg/dL Assessment/Plan - Problem List (1) Pancreatic cancer Impression: agree with care and plan
[2020-10-24] MEDS: SODIUM CHLORIDE FLUSH 0.9% 10 ML SYRINGE IVP SCH ×2 (13:39→17:16)
[2020-10-24] MEDS: OLANZapine ODT 5 MG TABLET TL SCH (21:14)
[2020-10-25] MEDS: SODIUM CHLORIDE FLUSH 0.9% 10 ML SYRINGE IVP PRN ×4 (00:28→06:18)
[2020-10-25] MEDS: SODIUM CHLORIDE FLUSH 0.9% 10 ML SYRINGE IVP SCH ×3 (00:28→17:05)
[2020-10-25] MEDS: HYDROmorphone 0.5 MG/0.5 ML SYRINGE IVP PRN ×6 (00:29→17:04)
--- NOTE | 2020-10-25 14:57 | PROVIDER PROGRESS NOTE ---
Assessment/Plan - Problem List (1) Pancreatic cancer Assessment/Plan: Comfort care measures were initiated yesterday. TPN discontinued today. Hospice was consulted today. Dr. Piña saw the patient today. Hospice Will do an official acceptance on Sunday10/27/20. The patient will be discharged to [facility] tomorrow 10/26/20 with the necessary palliative care medications and they will be seen by hospice at [facility] the following day. (8) Perforated abdominal viscus Assessment/Plan: On comfort measures. Output from drainage tube with bilious fluid has significantly decreased. We will keep the drainage tube in place for comfort. Reasoning pain that if taken out bile could cause peritonitis which would worsen the patient's pain. Plan is to keep it in place event as patient transitions to hospice care. - Current Meds Current Meds: Current Medications Generic Name Dose Route Start Last Admin Trade Name Freq PRN Reason Stop Dose Admin Hydromorphone HCl 0.5 mg 10/15/20 11:48 10/25/20 12:45 Hydromorphone 0.5 Mg/0.5 Ml Syringe IVP 0.5 mg Q2H PRN Administration Pain 8 to 10 Lorazepam 1 mg 10/23/20 17:35 10/23/20 22:56 Lorazepam 2 Mg/Ml Vial IVP 1 mg Q6H PRN Administration Anxiety/Agitation Olanzapine 5 mg 10/22/20 21:00 10/24/20 21:14 Olanzapine Odt 5 Mg Tablet TL 5 mg HS PETRA Administration Sodium Chloride 10 ml 10/15/20 17:00 10/25/20 07:58 Sodium Chloride Flush 0.9% 10 Ml Syringe IVP 10 ml 0100,0900,1700 PETRA Administration Sodium Chloride 10 ml 10/15/20 11:48 10/25/20 06:18 Sodium Chloride Flush 0.9% 10 Ml Syringe IVP 10 ml PRN PRN Administration NEEDED PER PROVIDER ORDERS - Lab Result Fish Bone Diagrams: 10/23/20 05:30 10/24/20 05:00 - Additional Planning My Orders: My Active Orders 10/25/20 10:58 Hospice [employer] Consult [CONS] Routine Subjective - Subjective Patient Reports: Other (Patient is very somnolent. He does not open his eyes to tactile stimuli. He appears comfortable.) Objective Vital Signs: Vital Signs - 24 hr 10/24/20 10/24/20 10/25/20 17:09 17:14 00:06 Temperature 36.6 C Heart Rate [ 75 78 Brachial] Heart Rate [ Monitoring electrodes] Respiratory 22 21 Rate Blood Pressure 155/67 H [Right Brachial artery] O2 Saturation 87 L 92 92 10/25/20 10/25/20 10/25/20 03:37 05:59 07:59 Temperature 37.7 C Heart Rate [ 70 Brachial] Heart Rate [ 74 Monitoring electrodes] Respiratory 19 19 Rate Blood Pressure [Right Brachial artery] O2 Saturation 98 94 97 Oxygen O2 Source [With Activity] Room air O2 Source [Without Activity] Room air O2 Source Nasal cannula I&O (Last 24 Hrs): Intake and Output Totals x24h 10/23/20 10/24/20 10/25/20 23:59 23:59 23:59 Intake Total 2540.450 1598.101 Output Total 2890 2890 775 Balance -349.550 -1291.899 -775 Comments/Notes: Somnolent. No appreciable respiratory distress. Comfortable. Heart rate is regular rate rhythm. Crackles noted in lungs bilaterally on auscultation. Abdomen is soft. SUZANNE drainage has significantly decreased. Urine output is darker. No edema, cyanosis. - Results Results: Laboratory Results WBC 13.3 x10^3/uL (4.8-10.8) H 10/23/20 05:30 RBC 3.31 10^6/uL (4.70-6.10) L 10/23/20 05:30 Hgb 11.1 g/dL (14.0-18.0) L 10/23/20 05:30 Hct 34.7 % (42.0-52.0) L 10/23/20 05:30 MCV 104.8 fL (80.0-94.0) H 10/23/20 05:30 MCH 33.5 pg (27.0-31.0) H 10/23/20 05:30 MCHC 32.0 g/dL (32.0-36.0) 10/23/20 05:30 RDW 15.0 % (12.0-15.0) 10/23/20 05:30 Plt Count 214 10^3/uL (130-450) 10/23/20 05:30 MPV 10.6 fL (7.4-11.4) 10/23/20 05:30 Neut # (Auto) 10.7 10^3/uL (1.5-6.6) H 10/23/20 05:30 Lymph # (Auto) 0.9 10^3/uL (1.5-3.5) L 10/23/20 05:30 [place] # (Auto) 0.9 10^3/uL (0.0-1.0) 10/23/20 05:30 Eos # (Auto) 0.5 10^3/uL (0.0-0.7) 10/23/20 05:30 Baso # (Auto) 0.0 10^3/uL (0.0-0.1) 10/23/20 05:30 Absolute Nucleated RBC 0.00 x10^3/uL 10/23/20 05:30 Nucleated RBC % 0.0 /100WBC 10/23/20 05:30 PT 15.7 secs (9.9-12.6) H 10/21/20 07:44 INR 1.4 (0.8-1.2) H 10/21/20 07:44 Sodium 141 mmol/L (135-145) 10/24/20 05:00 Potassium 3.4 mmol/L (3.5-5.0) L 10/24/20 05:00 Chloride 107 mmol/L (101-111) 10/24/20 05:00 Carbon Dioxide 27 mmol/L (21-32) 10/24/20 05:00 Anion Gap 7.0 (6-13) 10/24/20 05:00 BUN 59 mg/dL (6-20) H 10/24/20 05:00 Creatinine 1.3 mg/dL (0.6-1.2) H 10/24/20 05:00 Estimated GFR (MDRD) 52 (>89) L 10/24/20 05:00 Glucose 152 mg/dL (70-100) H 10/24/20 05:00 POC Whole Bld Glucose 105 mg/dL (70 - 100) H 10/24/20 12:17 Calcium 8.6 mg/dL (8.5-10.3) 10/24/20 05:00 Phosphorus 4.0 mg/dL (2.5-4.6) 10/24/20 05:00 Magnesium 2.1 mg/dL (1.7-2.8) 10/24/20 05:00 Total Bilirubin 1.0 mg/dL (0.2-1.0) 10/24/20 05:00 AST 18 IU/L (10-42) 10/24/20 05:00 ALT 13 IU/L (10-60) 10/24/20 05:00 Alkaline Phosphatase 176 IU/L (42-121) H 10/24/20 05:00 Troponin I High Sens 32.0 ng/L (2.3-19.7) H* 10/16/20 15:44 B-Natriuretic Peptide 805 pg/mL (5-100) H 10/22/20 08:36 Total Protein 5.0 g/dL (6.7-8.2) L 10/24/20 05:00 Albumin 2.0 g/dL (3.2-5.5) L 10/24/20 05:00 Globulin 3.0 g/dL (2.1-4.2) 10/24/20 05:00 Albumin/Globulin Ratio 0.7 (1.0-2.2) L 10/24/20 05:00 Prealbumin 7 mg/dL (18-45) L 10/22/20 05:15 Triglycerides 89 mg/dL (-149) 10/24/20 05:00 Lipase 71 U/L (22-51) H 10/15/20 04:45 Vitamin B12 1499 pg/mL (180-914) H 10/21/20 05:16 Folate 7.60 ng/mL (5.90 - >24.8) 10/21/20 05:16 Urine Color YELLOW 10/15/20 06:25 Urine Clarity CLEAR (CLEAR) 10/15/20 06:25 Urine pH 5.5 PH (5.0-7.5) 10/15/20 06:25 Ur Specific [place] 1.020 (1.002-1.030) 10/15/20 06:25 Urine Protein NEGATIVE mg/dL (NEGATIVE) 10/15/20 06:25 Urine Glucose (UA) NEGATIVE mg/dL (NEGATIVE) 10/15/20 06:25 Urine Ketones NEGATIVE mg/dL (NEGATIVE) 10/15/20 06:25 Urine Occult Blood NEGATIVE (NEGATIVE) 10/15/20 06:25 Urine Nitrite NEGATIVE (NEGATIVE) 10/15/20 06:25 Urine Bilirubin NEGATIVE (NEGATIVE) 10/15/20 06:25 Urine Urobilinogen 0.2 (NORMAL) E.U./dL (NORMAL) 10/15/20 06:25 Ur Leukocyte Esterase NEGATIVE (NEGATIVE) 10/15/20 06:25 Ur Microscopic Review NOT INDICATED 10/15/20 06:25 Urine Culture Comments NOT INDICATED 10/15/20 06:25 Nasal Adenovirus (PCR) NOT DETECTED 10/15/20 11:35 Nasal B. parapertussis DNA (PCR) NOT DETECTED 10/15/20 11:35 Nasal Coronavir 229E PCR NOT DETECTED 10/15/20 11:35 Nasal Coronavir HKU1 PCR NOT DETECTED 10/15/20 11:35 Nasal Coronavir NL63 PCR NOT DETECTED 10/15/20 11:35 Nasal Coronavir OC43 PCR NOT DETECTED 10/15/20 11:35 Nasal Enterovir/Rhinovir PCR NOT DETECTED 10/15/20 11:35 Nasal Influenza B PCR NOT DETECTED 10/15/20 11:35 Nasal Influenza A PCR NOT DETECTED 10/15/20 11:35 Nasal Parainfluen 1 PCR NOT DETECTED 10/15/20 11:35 Nasal Parainfluen 2 PCR NOT DETECTED 10/15/20 11:35 Nasal Parainfluen 3 PCR NOT DETECTED 10/15/20 11:35 Nasal Parainfluen 4 PCR NOT DETECTED 10/15/20 11:35 Nasal RSV (PCR) NOT DETECTED 10/15/20 11:35 Nasal Screen MRSA (PCR) NEGATIVE (NEGATIVE) 10/15/20 16:05 Nasal B.pertussis DNA PCR NOT DETECTED 10/15/20 11:35 Nasal C.pneumoniae (PCR) NOT DETECTED 10/15/20 11:35 Malvin Human Metapneumo PCR NOT DETECTED 10/15/20 11:35 Nasal M.pneumoniae (PCR) NOT DETECTED 10/15/20 11:35 Nasal SARS-CoV-2 (PCR) NOT DETECTED 10/15/20 11:35 Ref Lab Test Result REPORT 10/15/20 21:00 Ref Lab Test Result REPORT 10/15/20 21:00 - Procedures Procedures: Procedures CLOSURE SKIN & SUBCUTANEOUS NEC (12/04/12) REPOSITION RIGHT RADIUS WITH INT FIX, OPEN APPROACH (08/14/18) TOTAL KNEE REPLACEMENT (12/14/14) ABX Reporting Has patient been on IV antibiotics over the past 48 hours?: No
[2020-10-25] MEDS: OLANZapine ODT 5 MG TABLET TL SCH (21:52)
[2020-10-26] MEDS: SODIUM CHLORIDE FLUSH 0.9% 10 ML SYRINGE IVP SCH ×4 (02:41→23:52)
[2020-10-26] MEDS: SODIUM CHLORIDE FLUSH 0.9% 10 ML SYRINGE IVP PRN ×3 (02:42→08:51)
[2020-10-26] MEDS: HYDROmorphone 0.5 MG/0.5 ML SYRINGE IVP PRN ×3 (03:46→14:42)
--- NOTE | 2020-10-26 11:56 | PROVIDER PROGRESS NOTE ---
Assessment/Plan - Problem List (1) Pancreatic cancer Assessment/Plan: pt is barely responsive. pt is on comfort measure now, and d/c on tomorrow to [facility] for hospice care per social services manager. hospice care team will followup with pt after d/c. (2) Perforated abdominal viscus we will keep the drainage tube in place for comfort. Output from drainage tube with bilious fluid has significantly decreased. if taken out bile drainage, it could cause more pain and peritonitis which would worsen the patient's pain. Plan is to keep it in place event as patient transitions to hospice care. - Current Meds Current Meds: Current Medications Generic Name Dose Route Start Last Admin Trade Name Freq PRN Reason Stop Dose Admin Hydromorphone HCl 0.5 mg 10/15/20 11:48 10/26/20 10:04 Hydromorphone 0.5 Mg/0.5 Ml Syringe IVP 0.5 mg Q2H PRN Administration Pain 8 to 10 Lorazepam 1 mg 10/23/20 17:35 10/23/20 22:56 Lorazepam 2 Mg/Ml Vial IVP 1 mg Q6H PRN Administration Anxiety/Agitation Olanzapine 5 mg 10/22/20 21:00 10/25/20 21:52 Olanzapine Odt 5 Mg Tablet TL Not Given HS PETRA Sodium Chloride 10 ml 10/15/20 17:00 10/26/20 08:51 Sodium Chloride Flush 0.9% 10 Ml Syringe IVP 10 ml 0100,0900,1700 PETRA Administration Sodium Chloride 10 ml 10/15/20 11:48 10/26/20 08:51 Sodium Chloride Flush 0.9% 10 Ml Syringe IVP 10 ml PRN PRN Administration NEEDED PER PROVIDER ORDERS - Lab Result Fish Bone Diagrams: 10/23/20 05:30 10/24/20 05:00 Subjective - Subjective Patient Reports: Other (barely responsive in the bed) Objective Vital Signs: Vital Signs - 24 hr 10/26/20 02:40 Respiratory 17 Rate O2 Saturation 94 Oxygen O2 Source [With Activity] Room air O2 Source [Without Activity] Room air O2 Source Nasal cannula I&O (Last 24 Hrs): Intake and Output Totals x24h 10/24/20 10/25/20 10/26/20 23:59 23:59 23:59 Intake Total 1598.101 Output Total 2890 1240 530 Balance -1291.899 -1241 -530 General: Other (lethargic) HEENT: Atraumatic Neck: Supple Lymphatic: no adenopathy Neuro: Other (barely responsive) Cardiovascular: Regular rate, Normal S1, Normal S2 Respiratory: Chest non-tender, No respiratory distress Abdomen: Normal bowel sounds, Soft Extremities: Normal pulses - Results Results: Laboratory Results WBC 13.3 x10^3/uL (4.8-10.8) H 10/23/20 05:30 RBC 3.31 10^6/uL (4.70-6.10) L 10/23/20 05:30 Hgb 11.1 g/dL (14.0-18.0) L 10/23/20 05:30 Hct 34.7 % (42.0-52.0) L 10/23/20 05:30 MCV 104.8 fL (80.0-94.0) H 10/23/20 05:30 MCH 33.5 pg (27.0-31.0) H 10/23/20 05:30 MCHC 32.0 g/dL (32.0-36.0) 10/23/20 05:30 RDW 15.0 % (12.0-15.0) 10/23/20 05:30 Plt Count 214 10^3/uL (130-450) 10/23/20 05:30 MPV 10.6 fL (7.4-11.4) 10/23/20 05:30 Neut # (Auto) 10.7 10^3/uL (1.5-6.6) H 10/23/20 05:30 Lymph # (Auto) 0.9 10^3/uL (1.5-3.5) L 10/23/20 05:30 [place] # (Auto) 0.9 10^3/uL (0.0-1.0) 10/23/20 05:30 Eos # (Auto) 0.5 10^3/uL (0.0-0.7) 10/23/20 05:30 Baso # (Auto) 0.0 10^3/uL (0.0-0.1) 10/23/20 05:30 Absolute Nucleated RBC 0.00 x10^3/uL 10/23/20 05:30 Nucleated RBC % 0.0 /100WBC 10/23/20 05:30 PT 15.7 secs (9.9-12.6) H 10/21/20 07:44 INR 1.4 (0.8-1.2) H 10/21/20 07:44 Sodium 141 mmol/L (135-145) 10/24/20 05:00 Potassium 3.4 mmol/L (3.5-5.0) L 10/24/20 05:00 Chloride 107 mmol/L (101-111) 10/24/20 05:00 Carbon Dioxide 27 mmol/L (21-32) 10/24/20 05:00 Anion Gap 7.0 (6-13) 10/24/20 05:00 BUN 59 mg/dL (6-20) H 10/24/20 05:00 Creatinine 1.3 mg/dL (0.6-1.2) H 10/24/20 05:00 Estimated GFR (MDRD) 52 (>89) L 10/24/20 05:00 Glucose 152 mg/dL (70-100) H 10/24/20 05:00 POC Whole Bld Glucose 105 mg/dL (70 - 100) H 10/24/20 12:17 Calcium 8.6 mg/dL (8.5-10.3) 10/24/20 05:00 Phosphorus 4.0 mg/dL (2.5-4.6) 10/24/20 05:00 Magnesium 2.1 mg/dL (1.7-2.8) 10/24/20 05:00 Total Bilirubin 1.0 mg/dL (0.2-1.0) 10/24/20 05:00 AST 18 IU/L (10-42) 10/24/20 05:00 ALT 13 IU/L (10-60) 10/24/20 05:00 Alkaline Phosphatase 176 IU/L (42-121) H 10/24/20 05:00 Troponin I High Sens 32.0 ng/L (2.3-19.7) H* 10/16/20 15:44 B-Natriuretic Peptide 805 pg/mL (5-100) H 10/22/20 08:36 Total Protein 5.0 g/dL (6.7-8.2) L 10/24/20 05:00 Albumin 2.0 g/dL (3.2-5.5) L 10/24/20 05:00 Globulin 3.0 g/dL (2.1-4.2) 10/24/20 05:00 Albumin/Globulin Ratio 0.7 (1.0-2.2) L 10/24/20 05:00 Prealbumin 7 mg/dL (18-45) L 10/22/20 05:15 Triglycerides 89 mg/dL (-149) 10/24/20 05:00 Lipase 71 U/L (22-51) H 10/15/20 04:45 Vitamin B12 1499 pg/mL (180-914) H 10/21/20 05:16 Folate 7.60 ng/mL (5.90 - >24.8) 10/21/20 05:16 Urine Color YELLOW 10/15/20 06:25 Urine Clarity CLEAR (CLEAR) 10/15/20 06:25 Urine pH 5.5 PH (5.0-7.5) 10/15/20 06:25 Ur Specific [place] 1.020 (1.002-1.030) 10/15/20 06:25 Urine Protein NEGATIVE mg/dL (NEGATIVE) 10/15/20 06:25 Urine Glucose (UA) NEGATIVE mg/dL (NEGATIVE) 10/15/20 06:25 Urine Ketones NEGATIVE mg/dL (NEGATIVE) 10/15/20 06:25 Urine Occult Blood NEGATIVE (NEGATIVE) 10/15/20 06:25 Urine Nitrite NEGATIVE (NEGATIVE) 10/15/20 06:25 Urine Bilirubin NEGATIVE (NEGATIVE) 10/15/20 06:25 Urine Urobilinogen 0.2 (NORMAL) E.U./dL (NORMAL) 10/15/20 06:25 Ur Leukocyte Esterase NEGATIVE (NEGATIVE) 10/15/20 06:25 Ur Microscopic Review NOT INDICATED 10/15/20 06:25 Urine Culture Comments NOT INDICATED 10/15/20 06:25 Nasal Adenovirus (PCR) NOT DETECTED 10/15/20 11:35 Nasal B. parapertussis DNA (PCR) NOT DETECTED 10/15/20 11:35 Nasal Coronavir 229E PCR NOT DETECTED 10/15/20 11:35 Nasal Coronavir HKU1 PCR NOT DETECTED 10/15/20 11:35 Nasal Coronavir NL63 PCR NOT DETECTED 10/15/20 11:35 Nasal Coronavir OC43 PCR NOT DETECTED 10/15/20 11:35 Nasal Enterovir/Rhinovir PCR NOT DETECTED 10/15/20 11:35 Nasal Influenza B PCR NOT DETECTED 10/15/20 11:35 Nasal Influenza A PCR NOT DETECTED 10/15/20 11:35 Nasal Parainfluen 1 PCR NOT DETECTED 10/15/20 11:35 Nasal Parainfluen 2 PCR NOT DETECTED 10/15/20 11:35 Nasal Parainfluen 3 PCR NOT DETECTED 10/15/20 11:35 Nasal Parainfluen 4 PCR NOT DETECTED 10/15/20 11:35 Nasal RSV (PCR) NOT DETECTED 10/15/20 11:35 Nasal Screen MRSA (PCR) NEGATIVE (NEGATIVE) 10/15/20 16:05 Nasal B.pertussis DNA PCR NOT DETECTED 10/15/20 11:35 Nasal C.pneumoniae (PCR) NOT DETECTED 10/15/20 11:35 Malvin Human Metapneumo PCR NOT DETECTED 10/15/20 11:35 Nasal M.pneumoniae (PCR) NOT DETECTED 10/15/20 11:35 Nasal SARS-CoV-2 (PCR) NOT DETECTED 10/15/20 11:35 Ref Lab Test Result REPORT 10/15/20 21:00 Ref Lab Test Result REPORT 10/15/20 21:00 - Procedures Procedures: Procedures CLOSURE SKIN & SUBCUTANEOUS NEC (12/04/12) REPOSITION RIGHT RADIUS WITH INT FIX, OPEN APPROACH (08/14/18) TOTAL KNEE REPLACEMENT (12/14/14) ABX Reporting Has patient been on IV antibiotics over the past 48 hours?: No Current Medications - Current Medications Current Medications: Active Medications Diphenhydramine HCl (Diphenhydramine Inj 50 Mg/Ml Vial) 25 mg IVP HS PRN PRN Reason: Insomnia Glycopyrrolate (Glycopyrrolate 1 Mg/5 Ml Vial) 0.2 mg SUBQ Q4H PRN PRN Reason: Excessive secretions Hydromorphone HCl (Hydromorphone 0.5 Mg/0.5 Ml Syringe) 0.5 mg IVP Q2H PRN PRN Reason: Pain 8 to 10 Last Admin: 10/26/20 10:04 Dose: 0.5 mg Documented by: Lorazepam (Lorazepam 2 Mg/Ml Vial) 1 mg IVP Q6H PRN PRN Reason: Anxiety/Agitation Last Admin: 10/23/20 22:56 Dose: 1 mg Documented by: Olanzapine (Olanzapine Odt 5 Mg Tablet) 5 mg TL HS PETRA Last Admin: 10/25/20 21:52 Dose: Not Given Documented by: Sodium Chloride (Sodium Chloride Flush 0.9% 10 Ml Syringe) 10 ml IVP 0100,0900,1700 [facility] Last Admin: 10/26/20 08:51 Dose: 10 ml Documented by: Sodium Chloride (Sodium Chloride Flush 0.9% 10 Ml Syringe) 10 ml IVP PRN PRN PRN Reason: NEEDED PER PROVIDER ORDERS Last Admin: 10/26/20 08:51 Dose: 10 ml Documented by: Aspirin [Aspir 81] 81 mg PO DAILY 12/04/12 Cyanocobalamin (Vitamin B-12) [B-12] 1,000 mcg PO DAILY 01/25/13 Amiodarone HCl 100 mg PO DAILY 12/10/14
[2020-10-26] MEDS: LORazepam 2 MG/ML VIAL IVP PRN (18:33)
[2020-10-26] MEDS: OLANZapine ODT 5 MG TABLET TL SCH (20:38)
[2020-10-27] MEDS: HYDROmorphone 0.5 MG/0.5 ML SYRINGE IVP PRN ×4 (01:20→14:15)
[2020-10-27] MEDS: SODIUM CHLORIDE FLUSH 0.9% 10 ML SYRINGE IVP SCH (08:40)
[2020-10-27 10:29] LABS: B. PARAPERTUSSIS- RESP PCR PAN NOT DETECTED; B. PERTUSSIS- RESP PCR PANEL NOT DETECTED; C. PNEUMONIAE- RESP PCR PANEL NOT DETECTED; CORONAVIRUS 229E-RESP PCR NOT DETECTED; CORONAVIRUS HKU1-RESP PCR NOT DETECTED; CORONAVIRUS NL63-RESP PCR NOT DETECTED; CORONAVIRUS OC43-RESP PCR NOT DETECTED; HUMAN METAPNEUMOVIRUS NOT DETECTED; INFLUENZA A- RESP PCR PANEL NOT DETECTED; INFLUENZA B - RESP PCR PANEL NOT DETECTED; M. PNEUMONIAE- RESP PCR PANEL NOT DETECTED; PARAINFLUENZA VIRUS 1 NOT DETECTED; PARAINFLUENZA VIRUS 2 NOT DETECTED; PARAINFLUENZA VIRUS 3 NOT DETECTED; PARAINFLUENZA VIRUS 4 NOT DETECTED; RHINOVIRUS/ENTEROVIRUS NOT DETECTED; RSV- RESP PCR PANEL NOT DETECTED; SARS-CoV-2 -RESP PCR PANEL NOT DETECTED
--- NOTE | 2020-10-27 11:33 | Discharge Plan ---
Discharge Plan for SNF / [facility] - Discharge Plan And Transition Orders Problem Reviewed?: Yes Disposition: 50 Hospice/Home DC/Xfer Condition: Serious Allergies and Adverse Reactions: Allergies Allergy/AdvReac Type Severity Reaction Status Date / Time No Known Drug Allergies Allergy Verified 10/15/20 04:11 Health Concerns: hospice care Plan of Treatment: D/c to [facility], followup with hospice care Care Goals: quality of life, focus on comfortable care, and hospice care - SNF / CARE HOME Transition Orders Admit to (Facility): [facility] Under the care of (Name): Dr. Piña Discharge Diagnosis: pancreatic cancer, encounter of hospice care, Status post diagnostic laparoscopy for peptic ulcer disease plus perforated viscus, BIGG, Postoperative hypotension (resolved), chronic Afib, generalized weakness Medicare Certification Statement: I certify that Post Hospital assisted care is medically necessary on a continuing basis for any of the conditions for which she/he is receiving care during hospitalization. Notify PCP of admission and forward orders to primary provider for signature. Other Notification Orders: Call PCP immediately if patient develops dyspnea, chest pain/tightness or edema. Additional Bowel Program Orders: If no BM after 2 days, nurse may give M.O.M. 30ml PO PRN and/or ducolax Supp 1 [place] and/or TATIANNA 250mg P.O., and/or senna 1-2 tabs PO. On day 3 nurse may give r epeat above order until residents constipation is resolved. Treatments & Other Orders: followup with hospice care Oxygen Orders: 2 lpm of O2 by NC or as needed. Medication Orders: PLEASE REFER TO THE DISCHARGE MEDICATION LIST. Insulin Orders?: No - Medications New Prescriptions: LORazepam [Ativan] 0.5 mg PO Q6H PRN #10 tablet PRN Reason: Agitation Morphine Sulfate [Morphine Sulf Oral (Roxanol)] 5 mg PO Q2H PRN #30 ml PRN Reason: Pain/Dyspnea
--- NOTE | 2020-10-27 11:55 | DISCHARGE SUMMARY ---
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 pt was consulted with palliative care. A conversation with the patient's Enedina and his niece Radha at bedside was done by medical provider and surgeon with presenting the pathology findings. The patient's decided on no further work-up or treatment with regards to the pancreatic cancer and opted for comfort measures, and followup with hospice care. psychiatric social worker was consulted. pt is d/c to [facility] and followup with hospice care on today afternoon. 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 pt followup with hospice care. (3)perforated abdominal viscus Status post surgery, Drainage tubes in place. Patient initially had on TPN. Then on clear liquid diet on hospital. pt decline to eat. pt followup with hospice c are. (4)encounter of hospice care The patient's decided on no further work-up or treatment with regards to the pancreatic cancer and opted for comfort measures, and followup with hospice care. psychiatric social worker was consulted. pt is d/c to [facility] and followup with hospice care (5) Leukocytosis pt present elevated WBC. pt followup with hospice care. (6) pleural effusion small pleural effusion per US of chest. pt followup with hospice care, focus on comfort, no further intervention per pt's request. (7) Chronic atrial fibrillation pt followup with hospice care. (8) BIGG (acute kidney injury) Stable - HPI History of Present Illness: refer from Dr. Sullivan's HPI on 10/15/20 89-year-old male presenting for diffuse pneumoperitoneum and abdominal pain. Several day history of "heartburn" and epigastric discomfort. Patient has bilateral knee and upper extremity arthritis for which he takes ib uprofen/nonsteroidals several times daily up to 4-5. Patient takes no acid suppressive therapy and has never had upper endoscopy to evaluate his foregut pain. Has atrial fibrillation but only takes aspirin. No other systemic anticoagulation. Patient has had no prior abdominal surgical intervention other than remote appendectomy No significant family history. Notable past surgical history to include appendectomy. Patient denies change in bowel function, denies bleeding per rectum, and also however reports significant "heartburn" and reflux associated symptoms. Patient does not use tobacco. Patient has no alcohol use. No history of heart attack or stroke. Patient takes no systemic a nticoagulation. Endoscopic history includes remote colonoscopy however patient does not remember exactly. - HOSPITAL COURSE Hospital Course: pt was admitted by surgery's service for diffuse pneumoperitoneum and abdominal pain. CT of the abdomen pelvis in the emergency department showed free air without a clear etiology. He was taken to the OR by general surgery. He was found to have a perforated gastric/duodenal ulcer with purulent peritonitis. There was also found to be a large gastric versus pancreatic mass. Patient had diagnostic laparoscopy, partial omentectomy, excision laparoscopy and multiple location biopsy, Drain placement laparoscopic assisted. In detail, please review surgical report. Medical team was consulted for medical management of decreased urine output and concern for sepsis. pt's gastric samples were sent out for biopsy. pt was treated with antibiotics. pt initially had TPN and then switched to clear liquid diet. pt also had palliative care consult. 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 Cindi ent's chose comfortable care and followup with hospice care for patient. Dr. Piña already saw the patient, patient was accepted by hospice team. Patient was discharged to [facility] for hospice care - ALLERGIES Allergies/Adverse Reactions: Allergies Allergy/AdvReac Type Severity Reaction Status Date / Time No Known Drug Allergies Allergy Verified 10/15/20 04:11 - MEDICATIONS Home Medications: Ambulatory Orders Medication Instructions Recorded Confirmed LORazepam [Ativan] 0.5 mg PO Q6H PRN #10 tablet 10/27/20 Morphine Sulfate [Morphine Sulf 5 mg PO Q2H PRN #30 ml 10/27/20 Oral (Roxanol)] - PHYSICAL EXAM AT DISCHARGE General Appearance: positive: No acute distress, Lethargic Eyes Bilateral: positive: No lid inflammation ENT: positive: ENT inspection nml. negative: Purulent nasal drainage, Oral lesions Neck: positive: Nml inspection, Trachea midline. negative: Thyromegaly, Tracheal deviation Respiratory: positive: Chest non-tender, No respiratory distress. negative: Wheezes Cardiovascular: positive: Regular rate & rhythm, No murmur. negative: Tachycardia, Bradycardia Peripheral Pulses: positive: 2+ Abdomen: positive: Non-tender, No distention, Abnml bowel sounds (hypoactive bowel sound) Back: positive: Nml inspection Skin: positive: Color nml, Warm, Dry. negative: Cyanosis Extremities: positive: Non-tender, Nml appearance Neurologic/Psychiatric: positive: Other (pt has barely responsive). negative: Facial droop - LABS Result Diagrams: 10/23/20 05:30 10/24/20 05:00 - FOLLOW UP Follow Up: followup with hospice care in [facility] - TIME SPENT Time Spent in Discharge (Minutes): 30
[2020-10-27] MEDS: SODIUM CHLORIDE FLUSH 0.9% 10 ML SYRINGE IVP PRN (14:15)
[2020-10-27 16:09] VITALS: BP 143/56
== END 2020-10-27 16:20 | disposition hospice, home (50) | DRG 356 ==
LOC: EDUNIT# → ED 03:56 → SDS 09:10 → ICU 11:48 → MS2 10-24 05:23
PROVIDERS: ADMIT Surgery; ATTEND Nurse Practitioner Gerontology
PROC: 0FB24ZX Excision of Left Lobe Liver, Percutaneous Endoscopic Approach, Diagnostic (ICD-10-PCS; 2020-10-15)
PROC: 0W9G40Z Drainage of Peritoneal Cavity with Drainage Device, Percutaneous Endoscopic Approach (ICD-10-PCS; 2020-10-15)
PROC: 0WBH4ZX Excision of Retroperitoneum, Percutaneous Endoscopic Approach, Diagnostic (ICD-10-PCS; 2020-10-15)
PROC: 3E1M38Z Irrigation of Peritoneal Cavity using Irrigating Substance, Percutaneous Approach (ICD-10-PCS; 2020-10-15)
PROC: 0DBU4ZZ Excision of Omentum, Percutaneous Endoscopic Approach (ICD-10-PCS; principal; 2020-10-15 10:00)
PROC: 02HV33Z Insertion of Infusion Device into Superior Vena Cava, Percutaneous Approach (ICD-10-PCS; 2020-10-16)
PROC: 03HY32Z Insertion of Monitoring Device into Upper Artery, Percutaneous Approach (ICD-10-PCS; 2020-10-16)
PROC: 3E0336Z Introduction of Nutritional Substance into Peripheral Vein, Percutaneous Approach (ICD-10-PCS; 2020-10-20)
DX: K63.1 Perforation of intestine (nontraumatic) (principal); I48.91 Unspecified atrial fibrillation; K65.9 Peritonitis, unspecified; Z20.822 Contact with and (suspected) exposure to COVID-19; R57.1 Hypovolemic shock; A41.9 Sepsis, unspecified organism; R65.21 Severe sepsis with septic shock; C25.7 Malignant neoplasm of other parts of pancreas; C17.9 Malignant neoplasm of small intestine, unspecified; F03.91 Unspecified dementia, unspecified severity, with behavioral disturbance; J90 Pleural effusion, not elsewhere classified; I48.20 Chronic atrial fibrillation, unspecified; N17.9 Acute kidney failure, unspecified; R44.2 Other hallucinations; R16.0 Hepatomegaly, not elsewhere classified; K42.9 Umbilical hernia without obstruction or gangrene; Z51.5 Encounter for palliative care; Z79.82 Long term (current) use of aspirin; N40.1 Benign prostatic hyperplasia with lower urinary tract symptoms; R35.0 Frequency of micturition; M54.9 Dorsalgia, unspecified; G89.29 Other chronic pain; K57.30 Diverticulosis of large intestine without perforation or abscess without bleeding; Z66 Do not resuscitate; Z86.73 Personal history of transient ischemic attack (TIA), and cerebral infarction without residual deficits; R34 Anuria and oliguria; M25.562 Pain in left knee; R41.0 Disorientation, unspecified; R32 Unspecified urinary incontinence; F41.9 Anxiety disorder, unspecified; R25.1 Tremor, unspecified; I95.81 Postprocedural hypotension; R53.1 Weakness
CPT/HCPCS: 36415; 71045; 74150; 74177; 76604; 80048; 80053; 81003; 81599; 82310; 82607; 82746; 83690; 83735; 83880; 84100; 84132; 84134; 84478; 84484; 85025; 85610; 87070; 87077; 87205; 87631; 87640; 93005; 93306; 96365; 96375; 97162; 97530; 99223; 99285; A9270; J0131; J1170; J1815; J2060; J3490; J7120; Q9967; 0202U; 81001; 87086; 87150

== ENCOUNTER 2020-10-27 16:22 | Outpatient (CLI) | payer MEDICARE, BC | END 2020-10-27 16:23 | LOC: EMS 16:22 | PROVIDERS: ATTEND Nurse Practitioner Gerontology | DX: C25.9 Malignant neoplasm of pancreas, unspecified (principal); K63.1 Perforation of intestine (nontraumatic); R40.4 Transient alteration of awareness; Z74.01 Bed confinement status | CPT/HCPCS: A0425; A0428 ==